=== PATIENT | female | born 1970 | race Two or more races ===

== ENCOUNTER 2019-07-28 08:50 | Inpatient (IN) | payer BC ==
--- NOTE | 2019-07-25 10:45 | Pre-op HX & Phy Repo 2 SIG ---
DATE OF ADMISSION: 07/28/2019 HISTORY OF PRESENT ILLNESS: The patient is a 49-year-old female in overall good health with a malfunctioning Lizarraga continent ileostomy with difficulty intubating and incontinence of stool and gas. The patient has a past history of ulcerative colitis. In June 1989, she underwent total colectomy with creation of an ileoanal J-pouch with temporary ileostomy, which was not closed until September 1990. In April 1991, she required creation of another ileostomy because of failure of her J-pouch. In 1992, she underwent excision of her J-pouch with creation of a conventional Rosario ileostomy because of continuing incontinence after repair of a J-pouch fistula. In 2001, she underwent conversion of her conventional ileostomy to a Lizarraga continent intestinal reservoir, the Lizarraga modification of the Kock pouch continent ileostomy. The patient has done well for many years, but for the past year or more she has had progressive difficulty inserting her drainage catheter to evacuate stool and gas at about 3 to 4 inches deep into the stoma. She also has stool and gas coming out of the stoma in between intubating. She intubates 3 to 4 times per day, but does not need to wake up during the night. She has not had any history of symptoms of pouchitis. She is scheduled to be admitted with pouch endoscopy to be performed and preparation for definitive surgical revision of her malfunctioning Lizarraga continent ileostomy. Her most likely diagnosis is a slipped valve of her Lizarraga pouch. MEDICATIONS: Synthroid, Celexa, Singulair. ALLERGIES: Erythromycin, Imodium, sulfa. OPERATIONS: In addition to the above, she underwent oral surgery in 2006 and removal of a ganglion of the left wrist in 2008. REVIEW OF SYSTEMS: The patient has allergies that cause symptoms of asthma and she has hypothyroidism. She is nulliparous. Her last menstrual period is over one year ago. PHYSICAL EXAMINATION: The patient is 5 feet 6 inches, 152 pounds. [place] and will be examined upon arrival and dictated separately. IMPRESSION: 1. Malfunctioning Lizarraga continent ileostomy with likely desussception of the nipple valve with incontinence and difficulty intubating. 2. History of ulcerative colitis. 3. Allergic reactions causing asthma. 4. STATUS POST MULTIPLE ABDOMINAL OPERATIONS: 4.1. Total colectomy and ileoanal J-pouch with temporary ileostomy June 1989 4.2. Closure of temporary ileostomy September 1990. 4.3. Creation of another diverting ileostomy April 1991. 4.4. Resection of failed J-pouch due to incontinence after a fistula repair with creation of conventional ileostomy 1992. 4.5. Conversion of conventional ileostomy to a Lizarraga continent intestinal reservoir in 2001. PLAN: I have had a full discussion with the patient. She will be admitted and undergo insertion of a dual lumen PICC line. She will undergo pouch endoscopy with insertion of an indwelling pouch catheter to continuous drainage. She will require intravenous hydration during her bowel prep and overnight leading to surgery the following morning. She will receive broad-spectrum antibiotics intravenously starting the night before surgery and will receive preoperative subcutaneous heparin. I have had a full discussion with the patient regarding the nature of her condition, the nature of the surgery, indications, alternatives, options, and risks. I have discussed the options of revision of the existing valve with preservation of her pouch, creation of a new valve and stoma with preservation of her pouch, and the other options would be resection of the pouch with creating a new continent ileostomy or another conventional ileostomy. Since she has already undergone resection of a J-pouch hopefully this existing pouch can be preserved to maintain intestinal length. I have discussed the general risks of surgery including bleeding, infection, injury to adjacent structures or organs, deep vein thrombosis despite prophylaxis, healing issues, development of hernias or bowel obstructions, etc. I have also discussed the specific risks of the revision of Lizarraga pouch including recurrent difficulties with the function or structure of the pouch that could lead to additional surgery including recurrent slipped valve or fistula of pouch or valve. I will have another detailed discussion in person with the patient when she arrives from [place] of state. Sourav Louie M.D. DR: DEBRA JOB#: [id number] CC: VERONICA
[~2019-07-28] VITALS: Ht 167.6 cm; Wt 72.8 kg
[2019-07-28 09:35] VITALS: BP 138/92
--- NOTE | 2019-07-28 10:11 | NUR ---
NURSE NOTES: Patient was admitted at 3E from Home ([facility]). Admitted for BCIR malfunctioning. Patient is alert and oriented x 4, able to verbalize needs and demonstrates understanding. Family (Mother) at bedside. Consents were obtained from patient. Labs were drawn at 1010. Specimen cup provided for UA. Admission assessment was done, no signs of resp distress or labor. Skin intact. BCIR noted at the left lower quadrant. Medications are sent to the pharmacy.
[2019-07-28] MEDS ORDERED: Zolpidem 5mg tab ORAL PRN (10:15)
--- NOTE | 2019-07-28 10:30 | NUR ---
NURSE NOTES: UA sent down, cxr done at bedside.
[2019-07-28 10:49] LABS: BASOPHILS % (AUTO) 0.9 % (0.0-2.0); EOSINOPHILS % (AUTO) 3.5 % (0.0-3.0); HEMATOCRIT 44.9 % (37.0-47.0); HEMOGLOBIN 15.2 G/DL (12.0-16.0); LYMPHOCYTES % (AUTO) 22.6 % (20.0-45.0); MEAN CORPUSCULAR VOLUME 90 FL (80-99); MONOCYTES % (AUTO) 6.3 % (1.0-10.0); NEUTROPHILS % (AUTO) 66.8 % (45.0-75.0); PLATELET COUNT 317 K/UL (150-450); RED BLOOD COUNT 4.99 M/UL (4.20-5.40); RED CELL DISTRIBUTION WIDTH 11.6 % (11.6-14.8); WHITE BLOOD COUNT 8.5 K/UL (4.8-10.8)
[2019-07-28 10:57] LABS: INR 0.9 (0.9-1.1)
--- NOTE | 2019-07-28 11:02 | NUR ---
NURSE NOTES: Dr Guzman notified of preop visit.
[2019-07-28 11:10] LABS: ANION GAP 10 mmol/L (5-15); BLOOD UREA NITROGEN 22 mg/dL (7-18); CALCIUM 9.7 MG/DL (8.5-10.1); CARBON DIOXIDE 26 MMOL/L (21-32); CHLORIDE 105 MMOL/L (98-107); POTASSIUM 4.1 MMOL/L (3.5-5.1); SODIUM 140 MMOL/L (136-145)
[2019-07-28 11:16] LABS: ALANINE AMINOTRANSFERASE 48 U/L (12-78); ALBUMIN/GLOBULIN RATIO 1.1 (1.0-2.7); ALKALINE PHOSPHATASE 79 U/L (46-116); ASPARTATE AMINO TRANSFERASE 20 U/L (15-37); BILIRUBIN,TOTAL 0.4 MG/DL (0.2-1.0)
[2019-07-28 11:28] LABS: APPEARANCE,URINE SLIGHTLY CLOUDY; BILIRUBIN, URINE NEGATIVE (NEGATIVE); GLUCOSE, URINE (UA) NEGATIVE (NEGATIVE); KETONES,URINE 1+ (NEGATIVE); LEUKOCYTE ESTERASE ,URINE 3+ (NEGATIVE); NITRITE,URINE NEGATIVE (NEGATIVE); PH,URINE 5 (4.5-8.0); PROTEIN,URINE 1+ (NEGATIVE); UROBILINOGEN,URINE NORMAL MG/DL (0.0-1.0)
--- NOTE | 2019-07-28 11:28 | NUR ---
NURSE NOTES: EKG done at bedside, results reported to Dr. Louie, patient is stable. no new orders at this time, will continue to monitor.
[2019-07-28 11:35] LABS: COLOR,URINE YELLOW
[2019-07-28] MEDS: Neomycin Sulfate 500mg Tab ORAL SCH ×3 (11:45→20:08)
--- NOTE | 2019-07-28 11:51 | Anethesia Preoperative Eval ---
Anesthesia Pre-op PMH/ROS General Date of Evaluation: Jul 28, 2019 Time of Evaluation: 14:47 Anesthesiologist: Megan ASA Score: ASA 2 Mallampati Score Class I : Soft palate, uvula, fauces, pillars visible Class II: Soft palate, uvula, fauces visible Class III: Soft palate, base of uvula visible Class IV: Only hard plate visible Mallampati Classification: Class II Surgeon: Jacy Diagnosis: Malfuctioning Lizarraga Continent Ileostomy Surgical Procedure: Revision Lizarraga Continent Ileostomy Anesthesia History: none Family History: no anesthesia problems Allergies: Uncoded Allergies: erythromycin (Allergy, Unknown, 07/28/19) imodium (Allergy, Unknown, 07/28/19) sulfa (Allergy, Unknown, 07/28/19) Medications: see eMAR Patient NPO?: Yes Past Medical History Cardiovascular: Reports: HTN Pulmonary: Reports: asthma Gastrointestinal/Genitourinary: Reports: other - Colitis Endocrine: Reports: hypothyroidism Musculoskeletal/Integumentary: Reports: other - Foot Drop PSxH Narrative: 1. Malfunctioning Lizarraga continent ileostomy with likely desussception of the nipple valve with incontinence and difficulty intubating. 2. History of ulcerative colitis. 3. Allergic reactions causing asthma. 4. STATUS POST MULTIPLE ABDOMINAL OPERATIONS: 4.1. Total colectomy and ileoanal J-pouch with temporary ileostomy June 1989 4.2. Closure of temporary ileostomy September 1990. 4.3. Creation of another diverting ileostomy April 1991. 4.4. Resection of failed J-pouch due to incontinence after a fistula repair with creation of conventional ileostomy 1992. 4.5. Conversion of conventional ileostomy to a Lizarraga continent intestinal reservoir in 2001. Anesthesia Pre-op Phys. Exam Physician Exam Vital Signs Date Time Temp Pulse Resp B/P (MAP) Pulse Ox O2 Delivery O2 Flow Rate FiO2 07/28/19 09:35 98.5 85 20 138/92 (107) 97 07/28/19 09:35 Room Air Last Vital Signs Date Time Temp Pulse Resp B/P (MAP) Pulse Ox O2 Delivery O2 Flow Rate FiO2 07/28/19 09:35 Room Air Constitutional: NAD Neurologic: CN 2-12 intact Cardiovascular: RRR Respiratory: CTA Gastrointestinal: S/NT/ND Airway Exam Mallampati Score: Class II MO: full ROM: full Teeth: intact Anesthesia Pre-op A/P Labs Hematology Test 07/28/19 10:00 White Blood Count 8.5 K/UL (4.8-10.8) Red Blood Count 4.99 M/UL (4.20-5.40) Hemoglobin 15.2 G/DL (12.0-16.0) Hematocrit 44.9 % (37.0-47.0) Mean Corpuscular Volume 90 FL (80-99) Mean Corpuscular Hemoglobin 30.5 PG (27.0-31.0) Mean Corpuscular Hemoglobin Concent 33.9 G/DL (32.0-36.0) Red Cell Distribution Width 11.6 % (11.6-14.8) Platelet Count 317 K/UL (150-450) Mean Platelet Volume 7.6 FL (6.5-10.1) Neutrophils (%) (Auto) 66.8 % (45.0-75.0) Lymphocytes (%) (Auto) 22.6 % (20.0-45.0) Monocytes (%) (Auto) 6.3 % (1.0-10.0) Eosinophils (%) (Auto) 3.5 % (0.0-3.0) H Basophils (%) (Auto) 0.9 % (0.0-2.0) Coagulation Test 07/28/19 10:00 Prothrombin Time 10.1 SEC (9.30-11.50) Prothromb Time International Ratio 0.9 (0.9-1.1) Activated Partial Thromboplast Time 25 SEC (23-33) Chemistry Test 07/28/19 10:00 Sodium Level 140 MMOL/L (136-145) Potassium Level 4.1 MMOL/L (3.5-5.1) Chloride Level 105 MMOL/L (98-107) Carbon Dioxide Level 26 MMOL/L (21-32) Anion Gap 10 mmol/L (5-15) Blood Urea Nitrogen 22 mg/dL (7-18) H Creatinine 1.0 MG/DL (0.55-1.30) Estimat Glomerular Filtration Rate 58.9 mL/min (>60) Glucose Level 96 MG/DL (74-106) Calcium Level 9.7 MG/DL (8.5-10.1) Total Bilirubin 0.4 MG/DL (0.2-1.0) Aspartate Amino Transf (AST/SGOT) 20 U/L (15-37) Alanine Aminotransferase (ALT/SGPT) 48 U/L (12-78) Alkaline Phosphatase 79 U/L (46-116) Total Protein 7.7 G/DL (6.4-8.2) Albumin 4.0 G/DL (3.4-5.0) Globulin 3.7 g/dL Albumin/Globulin Ratio 1.1 (1.0-2.7) Risk Assessment & Plan Assessment: ASA 2 Plan: GA Status Change Before Surgery: No Pre-Antibiotics Drug: Josesito Ford MD Jul 28, 2019 11:51
[2019-07-28 12:00] VITALS: BP 154/91
--- NOTE | 2019-07-28 12:06 | Diagnostic Imaging Report ---
Indication: Dyspnea Comparison: None A single view chest radiograph was obtained. Findings: Cardiomediastinal appearance is within normal limits for age. The lungs are clear. Pulmonary vascularity is appropriate. The diaphragmatic contour is smooth and costophrenic angles are sharp. No pleural effusions are identified. The bones are unremarkable. Impression: No acute findings
--- NOTE | 2019-07-28 12:18 | Pre-Procedure Note/Attestation ---
Pre-Procedure Note/Attestation Complete Prior to Procedure Planned Procedure: not applicable Procedure Narrative: Lizarraga continent ileostomy pouch endoscopy Indications for Procedure Pre-Operative Diagnosis: malfunctioning Lizarraga continent ileostomy Attestation I attest that I discussed the nature of the procedure; its benefits; risks and complications; and alternatives (and the risks and benefits of such alternatives ), prior to the procedure, with the patient (or the patient's legal care support representative). I attest that, if there was a reasonable possibility of needing a blood transfusion, the patient (or the patient's legal care support representative) was given the [facility] standardized written summary, pursuant to the Ravindra Bevier Blood Safety Act ([place] Health and Safety Code # 1645, as amended). I attest that I re-evaluated the patient just prior to the surgery and that there has been no change in the patient's H&P, except as documented below: none Sourav Louie MD Jul 28, 2019 12:18
--- NOTE | 2019-07-28 12:50 | NUR ---
NURSE NOTES: Patient taken to GI lab/radiology via gurney. Mother Kalyani is in room with all belongings.
[2019-07-28] MEDS ORDERED: SYNTHROID25 MCG ORAL (13:00)
[2019-07-28] MEDS ORDERED: SINGULAIR10 MG ORAL (13:00)
[2019-07-28] MEDS ORDERED: CELEXA20 MG ORAL (13:00)
[2019-07-28] MEDS ORDERED: Montelukast 10mg tablet ORAL PRN (13:00)
--- NOTE | 2019-07-28 13:17 | Brief Operative Note ---
Immediate Post Operative Note Operative Note Pre-op Diagnosis: malfunctioning Lizarraga continent ileostomy Procedure: Lizarraga pouch endoscopy Post-op Diagnosis: slipped valve of Lizarraga pouch Post-op Diagnosis: same as pre-op Findings: consistent w/pre-op dx studies Surgeon: willa Anesthesia: other - none Specimen: none Complications: none Condition: stable Fluids: none Drains: other - 28 Fr Olivier Implant(s) used?: No Sourav Louie MD Jul 28, 2019 13:17
--- NOTE | 2019-07-28 13:22 | General Progress Note ---
Progress Note Progress Note H&P dictated. Malfunctioning Lizarraga continent ileostomy with incontinence of stool and gas and difficulty intubating Abdomen soft, long midline scar, multiple RLQ transverse scars and stoma of Lizarraga pouch small and low in RLQ. 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 Aldridge to evaluate Pouch endoscopy: partially desusscepted (slipped) nipple valve of Lizarraga pouch Plan: Dual lumen PIC with IV hydration during bowel prop Continuous drainage of Lizarraga pouch IV antibiotics started tonight SQ heparin pre-op in AM Full discussion with patient. Sourav Louie MD Jul 28, 2019 13:22
[2019-07-28] MEDS ORDERED: Heparin1,000 units/500ml Premix(Conc:2 units/ml) INJ PRN (13:30)
[2019-07-28] MEDS ORDERED: Lidocaine 1% Plain 30 ml INJ PRN (13:30)
--- NOTE | 2019-07-28 13:45 | NUR ---
RADIOLOGY DEPT., CHEST X-RAY DONE.-P.DYE
--- NOTE | 2019-07-28 14:37 | NUR ---
NURSE NOTES: Patient came back from procedure. Patient is stable, no signs and symptoms of respiratory distress. PICC line noted on the Left upper arm. Received order from radiology ok to use PICC line. Soy noted in BCIR. Will flush every 3 hours as ordered. Brick Tender at bedside. Will continue to monitor.
--- NOTE | 2019-07-28 14:50 | NUR ---
RADIOLOGY NOTE: LEFT UPPER EXTREMITY PICC PLACED.
--- NOTE | 2019-07-28 14:57 | Cardiology Progress Note ---
Assessment/Plan Status Narrative 1. UC 2. Malfunctioning Rodriguez Pouch 3. Hypothyroidism 4. HTN- New onse 5. RBBB 6. No clinical evidence of CAD based on history. Assessment/Plan Labs reviewed Add Losartan 25 mg QD to control BP Will request old EKG for review. May proceed with surgery in AM. I will follow post OP and monitor BP. Adjust meds as needed. Discussed with Patient, RN and with Dr. Louie. Subjective Cardiovascular: Reports: no symptoms Respiratory: Reports: no symptoms Gastrointestinal/Abdominal: Reports: abdominal pain Genitourinary: Reports: no symptoms Subjective Patient with history of UC admitted for revision of Rodriguez pouch. Pre-op EKG showed RBBB. BP has been in the 150 range. Patient denies h/o CAD, CP, SOB or HTN. Objective Last 24 Hour Vital Signs Date Time Temp Pulse Resp B/P (MAP) Pulse Ox O2 Delivery O2 Flow Rate FiO2 07/28/19 12:00 97.9 69 18 154/91 (112) 100 07/28/19 09:35 Room Air 07/28/19 09:35 98.5 85 20 138/92 (107) 97 General Appearance: WD/WN, no apparent distress, alert EENT: PERRL/EOMI, normal ENT inspection Neck: non-tender, normal alignment, supple, normal inspection, no JVD Cardiovascular: normal rate, regular rhythm, no gallop/murmur Respiratory/Chest: chest wall non-tender, lungs clear, normal breath sounds, no respiratory distress Abdomen: normal bowel sounds, non tender, soft, no organomegaly, no mass Extremities: non-tender, normal inspection, no calf tenderness, no swelling Laboratory Tests Test 07/28/19 10:00 07/28/19 10:15 White Blood Count 8.5 K/UL (4.8-10.8) Red Blood Count 4.99 M/UL (4.20-5.40) Hemoglobin 15.2 G/DL (12.0-16.0) Hematocrit 44.9 % (37.0-47.0) Mean Corpuscular Volume 90 FL (80-99) Mean Corpuscular Hemoglobin 30.5 PG (27.0-31.0) Mean Corpuscular Hemoglobin Concent 33.9 G/DL (32.0-36.0) Red Cell Distribution Width 11.6 % (11.6-14.8) Platelet Count 317 K/UL (150-450) Mean Platelet Volume 7.6 FL (6.5-10.1) Neutrophils (%) (Auto) 66.8 % (45.0-75.0) Lymphocytes (%) (Auto) 22.6 % (20.0-45.0) Monocytes (%) (Auto) 6.3 % (1.0-10.0) Eosinophils (%) (Auto) 3.5 % (0.0-3.0) H Basophils (%) (Auto) 0.9 % (0.0-2.0) Prothrombin Time 10.1 SEC (9.30-11.50) Prothromb Time International Ratio 0.9 (0.9-1.1) Activated Partial Thromboplast Time 25 SEC (23-33) Sodium Level 140 MMOL/L (136-145) Potassium Level 4.1 MMOL/L (3.5-5.1) Chloride Level 105 MMOL/L (98-107) Carbon Dioxide Level 26 MMOL/L (21-32) Anion Gap 10 mmol/L (5-15) Blood Urea Nitrogen 22 mg/dL (7-18) H Creatinine 1.0 MG/DL (0.55-1.30) Estimat Glomerular Filtration Rate 58.9 mL/min (>60) Glucose Level 96 MG/DL (74-106) Calcium Level 9.7 MG/DL (8.5-10.1) Total Bilirubin 0.4 MG/DL (0.2-1.0) Aspartate Amino Transf (AST/SGOT) 20 U/L (15-37) Alanine Aminotransferase (ALT/SGPT) 48 U/L (12-78) Alkaline Phosphatase 79 U/L (46-116) Total Protein 7.7 G/DL (6.4-8.2) Albumin 4.0 G/DL (3.4-5.0) Globulin 3.7 g/dL Albumin/Globulin Ratio 1.1 (1.0-2.7) Urine Color Yellow Urine Appearance Slightly cloudy Urine pH 5 (4.5-8.0) Urine Specific [place] 1.025 (1.005-1.035) Urine Protein 1+ (NEGATIVE) H Urine Glucose (UA) Negative (NEGATIVE) Urine Ketones 1+ (NEGATIVE) H Urine Blood Negative (NEGATIVE) Urine Nitrite Negative (NEGATIVE) Urine Bilirubin Negative (NEGATIVE) Urine Urobilinogen Normal MG/DL (0.0-1.0) Urine Leukocyte Esterase 3+ (NEGATIVE) H Urine RBC 0-2 /HPF (0 - 2) Urine WBC 5-10 /HPF (0 - 2) H Urine Squamous Epithelial Cells Few /LPF (NONE/OCC) Urine Bacteria Few /HPF (NONE) Rhett Aldridge MD Jul 28, 2019 14:57
[2019-07-28] MEDS: Losartan 25mg tab ORAL SCH (14:59)
--- NOTE | 2019-07-28 15:45 | Pre-op HX & Phy Repo 2 SIG ---
DATE OF ADMISSION: 07/28/2019 HISTORY OF PRESENT ILLNESS: [place] Please see previously dictated history. In addition to the previous information already dictated, the patient states that she feels she has a swelling in the right lower quadrant above her Lizarraga pouch stoma and that she has to press inwards on it in order to get her catheter into the pouch to evacuate stool. PHYSICAL EXAMINATION: GENERAL: The patient is 5 feet 6 inches, 152 pounds. VITAL SIGNS: Revealed mild systolic hypertension, 154/91. HEENT: Within normal limits. LUNGS: Clear. HEART: Regular rhythm. BREASTS: Without masses. ABDOMEN: Soft. There is a long midline incision from xiphoid to pubis. The stoma of her Lizarraga continent ileostomy pouch is small and low in the right lower quadrant. 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 She has had multiple conventional ileostomy procedures in this area as well. PELVIC: Negative per primary care recently. RECTAL: Status post proctectomy. EXTREMITIES: Without edema. Pulses 3+ femoral to pedal bilaterally. NEUROLOGIC: Physiologic. IMPRESSION: 1. Malfunctioning Lizarraga continent ileostomy with desussception of the nipple valve with incontinence and difficulty intubating to evacuate stool. 2. History of ulcerative colitis. 3. Intermittent allergic asthma symptoms. 4. Status post multiple abdominal operations. 4.1. Total colectomy and ileoanal J-pouch with temporary ileostomy, June 1989. 4.2. Closure of temporary ileostomy, September 1990. 4.3. Creation of another diverting ileostomy, April 1991. 4.4. Resection of failed ileoanal J-pouch due to incontinence after a fistula repair with creation of conventional Rosario ileostomy in 1992. 4.5. Conversion of malfunctioning conventional ileostomy with marked skin allergies to appliances to a Lizarraga continent intestinal reservoir in 2001 PLAN: The patient has undergone endoscopy of her Lizarraga pouch, confirming a partially slipped nipple valve. The pouch is well formed and is otherwise normal without any inflammation or ulcerations. I had a full discussion with the patient regarding the nature of her condition, the nature of the surgery, indications, alternatives, options, and risks as per my previous dictation and in all probability we will preserve the existing Lizarraga pouch since she has already had resection of a failed J-pouch. Either we will stabilize her existing valve or create a new valve and stoma with possible relocation of the stoma to the left lower quadrant. This has all been discussed with the patient. She will undergo insertion of a dual lumen PICC line, continuous drainage of her Lizarraga continent ileostomy pouch, intravenous hydration during her bowel prep, intravenous antibiotics and preoperative subcutaneous heparin. All questions have been answered. Sourav Louie M.D. DR: RAN JOB#: [id number] CC: VERONICA
--- NOTE | 2019-07-28 15:53 | Diagnostic Imaging Report ---
Indication: termite exterminator venous access Findings: After the indications, procedure, risks, complications, and alternatives of the procedure were explained, written informed consent was obtained. The left upper extremity was prepped with alcohol. All elements of maximal sterile barrier technique were followed including usage of a cap, mask, sterile gown, sterile gloves, hand hygiene and a large sterile sheet. Sonographic evaluation of the upper extremity was performed demonstrating a patent and compressible basilic vein. Access was obtained under real-time ultrasound guidance (with utilization of sterile gel and sterile probe cover) and digital image was saved and archived. An .018 wire was introduced. Needle exchanged for a 5 Lithuanian peel-away sheath. Measurements were obtained. A 5 Lithuanian dual-lumen Power PICC line catheter was cut to 40 cm and introduced over the wire. Peel-away sheath and wire were removed.Catheter was secured to the skin using 2-0 Prolene suture. Both ports aspirate and flush easily. A single fluoroscopic image shows the distal tip in the superior vena cava. Total fluoroscopic time: 8.9 seconds. Impression: Successful placement of an upper extremity PICC line catheter
[2019-07-28 16:00] VITALS: BP 151/81
--- NOTE | 2019-07-28 17:30 | Procedure Note ---
DATE OF PROCEDURE: 07/28/2019 ENDOSCOPY PROCEDURE REPORT ENDOSCOPIST: Sourav Louie M.D. ANESTHESIA: None. SEDATION: None. PRE-ENDOSCOPY DIAGNOSES: 1. Malfunctioning Lizarraga continent ileostomy with difficulty intubating and incontinence of stool. 2. History of ulcerative colitis. 3. Status post multiple abdominal operations including total colectomy with ileoanal J-pouch in 1989 followed by resection of failed J-pouch in 1992 and creation of a Lizarraga continent ileostomy in 2001. POST-ENDOSCOPY DIAGNOSES: 1. Malfunctioning Lizarraga continent ileostomy with difficulty intubating and incontinence of stool. 2. History of ulcerative colitis. 3. Status post multiple abdominal operations including total colectomy with ileoanal J-pouch in 1989 followed by resection of failed J-pouch in 1992 and creation of a Lizarraga continent ileostomy in 2001. ENDOSCOPY PERFORMED: Lizarraga continent ileostomy pouch endoscopy. FINDINGS: A well-formed healthy mature Lizarraga pouch with a partially slipped nipple valve. DESCRIPTION OF PROCEDURE: The patient was positioned supine in the GI lab without any anesthesia or sedation given or required. Using a GIF-P140 endoscope, the stoma was entered and with some manipulation of angulations, the pouch was entered. The pouch was distensible and mucosa was completely normal. Retroflexed views revealed partial desussception of the nipple valve. The distance from the stoma orifice to the tip of the valve was 11 cm, which in this patient should be approximately 7 cm. Withdrawal views confirmed the above findings. I was then able to insert a 28-Portuguese Olivier catheter into her pouch and decompressed it, connected to a gravity drainage bag, secured it with tape with a dressing over the stoma. She will be prepared for surgery in the morning. She tolerated the endoscopy well. Sourav Louie M.D. DR: Flako JOB#: [id number] CC: VERONICA
[2019-07-28] MEDS: D5 1/2NS w/KCl 20mEq 1,000 ML IV SCH (18:25)
--- NOTE | 2019-07-28 19:07 | NUR ---
NURSE NOTES: Patient true ileo output is 785 mLs. Greenish liquid output. Flushed 20 mLs q3 hours as ordered. Patient Urine output is 450mLs. Oral intake is 480mLs. Patient connected to IVF as ordered.
--- NOTE | 2019-07-28 19:29 | NUR ---
HAND-OFF: Report given to Lisbeth CASTRO. Patient is stable.
--- NOTE | 2019-07-28 19:30 | NUR ---
NURSE NOTES: Received report & pt from GLORIA Mcdonald. Pt lying in bed, a&ox4, in room air. No s/s of acute distress & no c/o pain at this time. Ileo cath intact & draining to gravity. Pt to be NPO @ midnight for tomorrow's surgery & pt aware & verbalized understanding. Skin intact. Dressing C/D/I. PICC line intact with IVF running as ordered. Plan of care discussed.
[2019-07-28 20:00] VITALS: BP 160/95
--- NOTE | 2019-07-28 23:46 | NUR ---
NURSE NOTES: Dr. Aldridge called to get an update about the pt. Updated with 1999 BP 160/95 HR 65. New order received for Norvasc 2.5mg PO Q12HR for SPB>150 to start now. Informed MD that EKG from outside hasn't been received via fax yet.
[2019-07-29] VITALS (14 sets, daily range): BP systolic 108–134; BP diastolic 59–83
[2019-07-29] MEDS: Ampicillin/Sulbactam Sod 3 GM in NS 110 ML IV SCH ×5 (00:11→23:57)
[2019-07-29] MEDS: D5 1/2NS w/KCl 20mEq 1,000 ML IV SCH (04:06)
[2019-07-29] MEDS ORDERED: Heparin 5000 units/ml inj SUBQ ONE (05:30)
[2019-07-29 06:19] LABS: BASOPHILS % (AUTO) 1.2 % (0.0-2.0); EOSINOPHILS % (AUTO) 4.1 % (0.0-3.0); HEMATOCRIT 41.6 % (37.0-47.0); HEMOGLOBIN 14.3 G/DL (12.0-16.0); LYMPHOCYTES % (AUTO) 26.4 % (20.0-45.0); MEAN CORPUSCULAR VOLUME 89 FL (80-99); MONOCYTES % (AUTO) 9.4 % (1.0-10.0); NEUTROPHILS % (AUTO) 58.9 % (45.0-75.0); PLATELET COUNT 262 K/UL (150-450); RED BLOOD COUNT 4.68 M/UL (4.20-5.40); RED CELL DISTRIBUTION WIDTH 11.1 % (11.6-14.8); WHITE BLOOD COUNT 6.6 K/UL (4.8-10.8)
[2019-07-29 06:42] LABS: ALANINE AMINOTRANSFERASE 38 U/L (12-78); ALBUMIN 3.5 G/DL (3.4-5.0); ALBUMIN/GLOBULIN RATIO 1.1 (1.0-2.7); ALKALINE PHOSPHATASE 74 U/L (46-116); ANION GAP 10 mmol/L (5-15); ASPARTATE AMINO TRANSFERASE 19 U/L (15-37); BILIRUBIN,TOTAL 0.7 MG/DL (0.2-1.0); BLOOD UREA NITROGEN 12 mg/dL (7-18); CALCIUM 8.9 MG/DL (8.5-10.1); CARBON DIOXIDE 25 MMOL/L (21-32); CHLORIDE 105 MMOL/L (98-107); CREATININE 0.8 MG/DL (0.55-1.30); FERRITIN 35 NG/ML (8-388); POTASSIUM 3.8 MMOL/L (3.5-5.1); SODIUM 139 MMOL/L (136-145)
[2019-07-29] MEDS ORDERED: LR 1000ml 1,000 ML IVLG SCH (06:48)
[2019-07-29] MEDS ORDERED: Rocuronium Bromide 50mg/5ml Inj IV ONE (06:51)
[2019-07-29] MEDS ORDERED: Dexamethasone 4mg/ml vial ONE (06:53)
[2019-07-29] MEDS ORDERED: Sodium Chloride 10ml vial INJ ONE (06:53)
[2019-07-29] MEDS ORDERED: Lidocaine 1% MPF 10mg/ml 5ml ONE (06:53)
[2019-07-29] MEDS ORDERED: fentaNYL 100 mcg/2 mL IV ONE ×3 (06:55→09:56)
--- NOTE | 2019-07-29 06:55 | Immediate Post-Op Evaluation ---
Immediate Post-Op Evalulation Immediate Post-Op Evalulation Procedure: Revision Lizarraga Continent Ileostomy Date of Evaluation: Jul 29, 2019 Time of Evaluation: 12:07 IV Fluids: 2400 LR Blood Products: 0 Estimated Blood Loss: 100 Urinary Output: 200 Blood Pressure Systolic: 124 Blood Pressure Diastolic: 61 Pulse Rate: 60 Respiratory Rate: 16 O2 Sat by Pulse Oximetry: 100 Temperature (Fahrenheit): 98.5 Pain Score (1-10): 3 Nausea: No Vomiting: No Complications 0 Patient Status: awake, reacts, patent, extubated, none Hydration Status: adequate Drug Zosyn, 500 mg Flagyl IV Given Within 1 Hr of Incision: Yes Time Given: 07:29 Josesito Guzman MD Jul 29, 2019 06:55
[2019-07-29] MEDS ORDERED: LORazepam Inj 2mg/ml 1ml IV PRN (07:00)
[2019-07-29] MEDS ORDERED: Ketorolac 30mg Inj IV PRN ×2 (07:00)
[2019-07-29] MEDS ORDERED: oxyCODONE HCL/Acetaminophen 5/325mg ORAL PRN (07:00)
[2019-07-29] MEDS ORDERED: Meperidine 25mg/0.5ml Inj (FOR RIGORS ONLY) IV PRN (07:00)
[2019-07-29] MEDS ORDERED: Acetaminophen (Non formulary) 100 ML IV ONE (07:00)
[2019-07-29] MEDS ORDERED: HYDROcodone/Acetamin 7.5/325 tab ORAL PRN (07:00)
[2019-07-29] MEDS ORDERED: DiphenhydrAMINE 50mg/ml Inj IVP PRN ×2 (07:00→12:00)
[2019-07-29] MEDS ORDERED: Midazolam 2mg/2ml Inj IVP PRN (07:00)
[2019-07-29] MEDS ORDERED: Atropine Sulfate 0.4mg/ml inj IVP PRN (07:00)
[2019-07-29] MEDS ORDERED: Labetalol 5mg/ml 20ml vial IV PRN (07:00)
[2019-07-29] MEDS ORDERED: HYDROcodone/Acetamin 5/325 tab ORAL PRN (07:00)
[2019-07-29] MEDS ORDERED: fentaNYL 100 mcg/2 mL IV PRN (07:00)
[2019-07-29] MEDS ORDERED: Hydromorphone 0.5mg/0.5ml inj IVP PRN (07:00)
[2019-07-29] MEDS ORDERED: Propofol 1,000mg/ 100ml btl IV ONE (07:00)
--- NOTE | 2019-07-29 07:04 | NUR ---
NURSE NOTES: Picked up by transporter for surgery. ID band verified. Chart and meds given to transporter. Endorsed to have overhead trapeze set up
[2019-07-29] MEDS ORDERED: NeoSporin Gu Irrig 1ml Amp IRRIG ONE (07:10)
[2019-07-29] MEDS ORDERED: Bacitracin 50000 Units Vial ONE (07:10)
--- NOTE | 2019-07-29 07:10 | NUR ---
HAND-OFF: Report given to GLORIA Mcdonald. Pt went down for surgery.
[2019-07-29 07:13] LABS: % IRON SATURATION 31 % (15-50); IRON 119 ug/dL (50-175); TOTAL IRON BINDING CAPACITY 390 ug/dL (250-450)
--- NOTE | 2019-07-29 07:22 | Pre-Procedure Note/Attestation ---
Pre-Procedure Note/Attestation Complete Prior to Procedure Planned Procedure: not applicable Procedure Narrative: revision of Lizarraga continent ileostomy, possible gastrostomy Indications for Procedure Pre-Operative Diagnosis: malfunctioning Lizarraga continent ileostomy Attestation I attest that I discussed the nature of the procedure; its benefits; risks and complications; and alternatives (and the risks and benefits of such alternatives ), prior to the procedure, with the patient (or the patient's legal artist's representative). I attest that, if there was a reasonable possibility of needing a blood transfusion, the patient (or the patient's legal artist's representative) was given the [facility] standardized written summary, pursuant to the [facility] [place] Blood Safety Act ([place] Health and Safety Code # 1645, as amended). I attest that I re-evaluated the patient just prior to the surgery and that there has been no change in the patient's H&P, except as documented below:none Sourav Louie MD Jul 29, 2019 07:22
[2019-07-29] MEDS ORDERED: Neostigmine 1mg/ml 10ml Inj ONE (07:30)
[2019-07-29] MEDS ORDERED: NS Irrig 1000ml ONE ×2 (07:30→15:13)
[2019-07-29] MEDS ORDERED: LR 1000ml ONE (07:30)
[2019-07-29] MEDS ORDERED: Sterile Water Irrig 1000ml IRRIG ONE (07:30)
[2019-07-29] MEDS ORDERED: Lidocaine 1% Plain 30 ml INJ ONE ×2 (07:32→09:26)
--- NOTE | 2019-07-29 08:04 | NUR ---
Report received from GLORIA Bob. Patient is off unit and at surgery. Addendum: 07/29/19 at 0805 by Elba Nuno RN NURSE NOTES: Report received from GLORIA Bob. Patient is off unit and at surgery.
[2019-07-29] MEDS ORDERED: Glycopyrrolate 0.2mg/ml 1ml Vial ONE ×2 (08:21→11:21)
[2019-07-29] MEDS: Losartan 25mg tab ORAL SCH (09:00)
[2019-07-29] MEDS: Citalopram Hydrobromide 10mg Tab ORAL SCH (09:00)
--- NOTE | 2019-07-29 09:30 | NUR ---
*-* NO INSURANCE INFORMATION IN THE BAR UNABLE TO SEND CLINICALS OR REVIEWS *-*
--- NOTE | 2019-07-29 09:46 | NUR ---
*-* INSURANCE *-* ALL CLINICAL AND REVIEWS HAVE BEEN FAXED TO: [facility] REF# [id number] JOEL: MELISSA P: [phone] F: [phone]
[2019-07-29] MEDS ORDERED: PCA HYDROmorphone 1mg/ml 30 ML IV PRN (11:57)
[2019-07-29] MEDS ORDERED: HYDROmorphone 1mg/ml Carpuject SUBQ PRN (11:57)
[2019-07-29] MEDS ORDERED: LORazepam 1mg tab SL PRN ×2 (12:00)
[2019-07-29] MEDS ORDERED: Naloxone 0.4mg/ml Inj IVP PRN (12:00)
[2019-07-29] MEDS ORDERED: Rate Change PCA 1 Each MISC PRN (12:00)
[2019-07-29] MEDS ORDERED: PCA Education Pamphlet MISC ONE (12:00)
[2019-07-29] MEDS ORDERED: Ampicillin/Sulbactam Sod 3 GM in NS 110 ML IV SCH (12:00)
--- NOTE | 2019-07-29 12:01 | Brief Operative Note ---
Immediate Post Operative Note Operative Note Pre-op Diagnosis: malfunctioning Lizarraga continent ileostomy Procedure: Revision of Lizarraga continent ileostomy and relocation of stoma; gastrostomy Post-op Diagnosis: slipped valve of Lizarraga pouch Post-op Diagnosis: same as pre-op Findings: consistent w/pre-op dx studies Surgeon: willa Additional Surgeons: tamica Anesthesiologist: eduard Anesthesia: general Specimen: yes - stoma, bowel segments Complications: none Condition: stable Fluids: see anesthesia record Estimated Blood Loss: volume - 100cc Drains: other - 28 Olivier to Lizarraga pouch; 18Fr gastrostomy Implant(s) used?: No Sourav Louie MD Jul 29, 2019 12:01
[2019-07-29] MEDS ORDERED: Acetaminophen 650mg/20.3ml GT PRN (12:07)
--- NOTE | 2019-07-29 13:20 | NUR ---
NURSE NOTES: Patient came back from surgery at 1320. Report received from GLORIA Talbert. Patient is asleep and calm. Mother Kalyani was at bedside and patient teaching given to her regarding the CUSHION GUM APPLICATOR. No signs of respiratory distress or labored breathing. Vitals are WNL. Surgery site noted clean, dry and intact. Olivier catheter noted. Will continue to monitor patient.
[2019-07-29] MEDS: D5 1/4NS w/KCl 20mEq 1,000 ML IV SCH (14:30)
[2019-07-29] MEDS ORDERED: Tubing IV Secondary IV ONE (15:13)
[2019-07-29] MEDS ORDERED: NS 275ml ONE (15:13)
--- NOTE | 2019-07-29 15:22 | NUR ---
CASE MANAGEMENT: INITIAL REVIEW 49YR OLD FEMALE HERE FOR ELECTIVE SURGERY CC: MALFUNCTION SHIELDS CONTINENT ILEOSTOMY WITH DIFFICULTY INTUBATING AND INCONTINENT OF STOOL AND GAS SI: MALFUNCTION SHIELDS CONTINENT ILEOSTOMY WITH DIFFICULTY INTUBATING 98.5 85 20 138/92 97% ON RA BUN 22 IS: SHIELDS POUCH ENDOSCOPY TODAY \: 3E MED SURG UNIT PLAN: REVISION OF SHIELDS CONTINENT ILEOSTOMY AND RELOCATION OF STOMA; GASTROSTOMY IN AM CASE MANAGEMENT: REVIEW 07/29/19 SI: S/P SHIELDS POUCH ENDOSCOPY MALFUNCTION SHIELDS CONTINENT ILEOSTOMY WITH DIFFICULTY INTUBATING 98.1 59 14 117/70 97% ON RA IS: IN SURGERY NOW IV D5@100ML/HR IV AMPICILLIN Q6HR IV FLAGYL Q6HR SYNTHROID QAM \: 3E MED SURG UNIT PLAN: REVISION OF SHIELDS CONTINENT ILEOSTOMY AND RELOCATION OF STOMA; GASTROSTOMY TODAY
--- NOTE | 2019-07-29 15:31 | Cardiology Progress Note ---
Assessment/Plan Status Narrative 1. UC 2. Malfunctioning Lizarraga Ileostomy 3. Hypothyroidism 4. HTN- New onse 5. RBBB 6. No clinical evidence of CAD based on history. 7. s/p Revision of Lizarraga continent ileostomy and relocation of stoma; gastrostomy Assessment/Plan Losartan 25 mg QD to control BP Norvasc 2.5 mg PRN. IS to avoid atelectasis. Will monitor BP. Adjust meds as needed. Discussed with Patient, RN and with Family. Subjective Cardiovascular: Denies: chest pain Respiratory: Reports: no symptoms; Denies: cough, orthopnea Gastrointestinal/Abdominal: Reports: abdominal pain Genitourinary: Reports: no symptoms Subjective Patient with history of UC admitted for revision of Lizarraga ileostomy Pre-op EKG showed RBBB. BP has been in the 150 range. Patient denies h/o CAD, CP, SOB or HTN. 07/29/19- s/p Revision of Lizarraga continent ileostomy and relocation of stoma; gastrostomy. Doing OK post op- on RELAY REPAIRER Required Norvasc last nite . BP stable today. Objective Last 24 Hour Vital Signs Date Time Temp Pulse Resp B/P (MAP) Pulse Ox O2 Delivery O2 Flow Rate FiO2 07/29/19 14:30 98.9 20 114/63 (80) 99 07/29/19 13:25 14 07/29/19 13:20 98.5 20 109/61 (77) 100 07/29/19 13:20 Nasal Cannula 3.0 07/29/19 13:10 14 07/29/19 13:05 97.6 72 24 114/59 100 Nasal Cannula 3 07/29/19 12:55 14 07/29/19 12:50 64 20 109/64 100 Nasal Cannula 3 07/29/19 12:50 97.6 07/29/19 12:50 97.6 07/29/19 12:35 68 20 111/59 100 Nasal Cannula 3 07/29/19 12:20 61 14 108/59 100 Simple Mask 6 07/29/19 12:10 61 14 120/67 100 Simple Mask 6 07/29/19 12:00 61 14 124/63 100 Simple Mask 6 07/29/19 11:55 63 12 131/67 100 Simple Mask 6 07/29/19 11:54 60 16 100 07/29/19 11:50 98.5 61 12 124/61 100 Simple Mask 6 07/29/19 04:00 98.1 59 14 117/70 (86) 97 07/29/19 00:00 97.9 68 16 134/83 (100) 99 07/28/19 23:45 68 134/83 07/28/19 21:00 Room Air 07/28/19 20:00 97.9 65 17 160/95 (116) 100 07/28/19 16:00 98.3 65 20 151/81 (104) 100 Cardiovascular: normal rate, regular rhythm, no gallop/murmur Respiratory/Chest: lungs clear Abdomen: absent bowel sounds, tender Extremities: non-tender, no calf tenderness, no swelling Intake and Output 07/28/19 07/29/19 19:00 07:00 Intake Total 480 ml 1540 ml Output Total 1235 ml 1495 ml Balance -755 ml 45 ml Intake Oral 480 ml 240 ml IV Total 1300 ml Output Urine Total 450 ml 850 ml Other 785 ml 645 ml # Voids 2 3 Laboratory Tests Test 07/29/19 05:15 White Blood Count 6.6 K/UL (4.8-10.8) Red Blood Count 4.68 M/UL (4.20-5.40) Hemoglobin 14.3 G/DL (12.0-16.0) Hematocrit 41.6 % (37.0-47.0) Mean Corpuscular Volume 89 FL (80-99) Mean Corpuscular Hemoglobin 30.6 PG (27.0-31.0) Mean Corpuscular Hemoglobin Concent 34.5 G/DL (32.0-36.0) Red Cell Distribution Width 11.1 % (11.6-14.8) L Platelet Count 262 K/UL (150-450) Mean Platelet Volume 7.5 FL (6.5-10.1) Neutrophils (%) (Auto) 58.9 % (45.0-75.0) Lymphocytes (%) (Auto) 26.4 % (20.0-45.0) Monocytes (%) (Auto) 9.4 % (1.0-10.0) Eosinophils (%) (Auto) 4.1 % (0.0-3.0) H Basophils (%) (Auto) 1.2 % (0.0-2.0) Sodium Level 139 MMOL/L (136-145) Potassium Level 3.8 MMOL/L (3.5-5.1) Chloride Level 105 MMOL/L (98-107) Carbon Dioxide Level 25 MMOL/L (21-32) Anion Gap 10 mmol/L (5-15) Blood Urea Nitrogen 12 mg/dL (7-18) Creatinine 0.8 MG/DL (0.55-1.30) Estimat Glomerular Filtration Rate > 60 mL/min (>60) Glucose Level 100 MG/DL (74-106) Calcium Level 8.9 MG/DL (8.5-10.1) Iron Level 119 ug/dL (50-175) Total Iron Binding Capacity 390 ug/dL (250-450) Percent Iron Saturation 31 % (15-50) Unsaturated Iron Binding 271 ug/dL (112-346) Ferritin 35 NG/ML (8-388) Total Bilirubin 0.7 MG/DL (0.2-1.0) Aspartate Amino Transf (AST/SGOT) 19 U/L (15-37) Alanine Aminotransferase (ALT/SGPT) 38 U/L (12-78) Alkaline Phosphatase 74 U/L (46-116) Total Protein 6.8 G/DL (6.4-8.2) Albumin 3.5 G/DL (3.4-5.0) Globulin 3.3 g/dL Albumin/Globulin Ratio 1.1 (1.0-2.7) Vitamin B12 Level 297 PG/ML (193-986) Folate 45.8 NG/ML (8.6-58.9) Microbiology Date/Time Source Procedure Growth Status 07/28/19 10:15 Urine,Clean Catch Urine Culture - Preliminary NO GROWTH Resulted Rhett Aldridge MD Jul 29, 2019 15:31
--- NOTE | 2019-07-29 18:41 | NUR ---
NURSE NOTES: Patient received total of 40 mLs of NS flush in the Gtube and 40 mLs BCIR cath. GT true output is 10 mL. Output is clear, with few gastric contents. Ileo true output is 160 mL. Output is bright red in color. Urine 250 mLs total output, dark in color. Patient is receiving IV fluids, TECHNICAL SUPPORT SPECIALIST, and IV antibiotics. Dressing is clean, dry and intact. Patient is alert, oriented and comfortable. Will continue to monitor.
[2019-07-29] MEDS: PCA shift volume MISC SCH (19:28)
--- NOTE | 2019-07-29 19:42 | NUR ---
HAND-OFF: Report given to Lisbeth CASTRO. Patient is stable.
--- NOTE | 2019-07-29 19:43 | NUR ---
NURSE NOTES: Received report & pt from Tamara/GLORIA Arreola. Pt lying in bed, a&ox4, in room air, family member at bedside. No s/s of acute distress & c/o 9/10 pain. MAIL SERVICE COORDINATOR setting checked. Ileo, GT, & toro cath intact & draining to gravity. Surgical drsg C/D/I. PICC line intact with IVF running as ordered. Bed in lowest position, call light & MAIL SERVICE COORDINATOR pump within reach. Plan of care discussed.
--- NOTE | 2019-07-29 20:15 | Operative Note - Dictated ---
DATE OF OPERATION: 07/29/2019 SURGEON: Sourav Louie M.D. ROTOR BLADE INSTALLER: Hayder Berger M.D. ANESTHESIOLOGIST: Josesito Guzman M.D. TYPE OF ANESTHESIA: General endotracheal. PREOPERATIVE DIAGNOSES: 1. Malfunctioning Lizarraga continent ileostomy with difficulty with intubation and incontinence with a slipped valve. 2. History of ulcerative colitis. 3. Status post multiple abdominal operations. 3.1. Total colectomy with ileoanal J-pouch and temporary ileostomy in June 1989. 3.2. Closure of temporary ileostomy in September 1990. 3.3. Creation of another diverting ileostomy in April 1991. 3.4. Resection of failed ileoanal J-pouch due to incontinence after a fistular repair with abdominoperineal proctectomy and creation of a conventional ileostomy in 1992. 3.5. Creation of Lizarraga continent intestinal reservoir continent ileostomy in 2001. POSTOPERATIVE DIAGNOSES: 1. Malfunctioning Lizarraga continent ileostomy with difficulty with intubation and incontinence with a slipped valve. 2. History of ulcerative colitis. 3. Status post multiple abdominal operations. 3.1. Total colectomy with ileoanal J-pouch and temporary ileostomy in June 1989. 3.2. Closure of temporary ileostomy in September 1990. 3.3. Creation of another diverting ileostomy in April 1991. 3.4. Resection of failed ileoanal J-pouch due to incontinence after a fistular repair with abdominoperineal proctectomy and creation of a conventional ileostomy in 1992. 3.5. Creation of Lizarraga continent intestinal reservoir continent ileostomy in 2001. OPERATION PERFORMED: Laparotomy with complex reconstruction of Lizarraga continent ileostomy with creation of new valve and stoma with relocation of stoma to the left lower quadrant and catheter gastrostomy. DESCRIPTION OF PROCEDURE: The patient was taken to the operating room and under general endotracheal anesthesia with sequential compression device stockings and Olivier catheter in place, she was prepped and draped in usual fashion. Previous midline incision was reopened from umbilicus to pubis. There were no adhesions to the anterior abdominal wall, but the pouch was densely adherent partially to the bladder, but also to the uterus and the adnexa. There were bilateral simple cysts that were decompressed. Gradually, the pouch was elevated out of the pelvis. There were multiple pre-sacral old large bharat that were removed without bleeding. A 28-Ivorian Olivier catheter was placed through the stoma low in the right lower quadrant and into the pouch and the afferent bowel which was dissected free was clearly identified. There were diffuse adhesions between loops of bowel in the upper abdomen as well. The pouch was distended with 250 mL of saline, but there was incontinence around the catheter and the pouch was decompressed. A pouch enterotomy was created between stay sutures and it was clear that the existing nipple valve could not be reformed. The stoma was circumscribed with an elliptical transversely oriented incision and brought through with its mesentery into the abdominal wall. It could not be intussuscepted to create a new valve at the same location. Accordingly, it was divided using the SnapMyAderOneTagat electrosurgical device to divide the mesentery and then the linear stapler 60 blue cartridge to staple across the old access segment. The staple line was imbricated with 3-0 silk. In view of all her diffuse adhesions and a limited anterior surface area of the pouch, I felt it best to create a new valve by utilizing the afferent small bowel. The junction of the bowel and pouch was marked with 2-0 chromic and 12 cm proximal marked for the valve segment. There was not room for a second collar anastomosis. The mesentery was stripped and the serosa scarified. The abdominal wall thickness was approximately 4 cm. The appropriate length access segment was measured and marked. The bowel was divided proximally with the linear stapler 60 and distally left open to become the new stoma. The valve was created by gradual intussusception creating a 5 to 6 cm long nipple valve. Four rows of bharat were placed using the linear stapler 60 green cartridge with the pin removed. The 28-Ivorian Olivier went nicely into the pouch. The afferent bowel was reattached to the pouch with a end-to-side anastomosis utilizing the 25 CEEA. The staple line imbricated with 3-0 silk and 2 intact donuts retrieved. The afferent bowel was manually occluded and with a catheter in the new stoma the pouch distended with 300 mL of saline. There was no extravasation and upon removing the catheter there was no incontinence. The catheter was reintroduced and the pouch decompressed. It was clear that the stoma would need to be relocated to the left lower quadrant and with a transversely placed incision somewhat higher than the prior site on the right side, and with a cruciate incision in the fascia, the new stoma and access segment was brought through the abdominal wall with the pouch lying nicely against the abdominal wall. The pelvis was carefully inspected and irrigated. Antibiotic soaked laps had been used to protect the incision throughout the procedure. I felt in view of all the dissection, a catheter gastrostomy was required. An 18-Ivorian Olivier catheter was brought through a stab incision in the left upper quadrant and placed into the body of the stomach, greater curve, fundus, anterior wall, between two concentric 2-0 chromic pursestring sutures with the balloon inflated and the stomach sutured to the abdominal wall with multiple interrupted 3-0 silk sutures. The catheter was sutured to the skin with 2-0 silk and it was flushed and connected to a gravity drainage bag. Now, the pelvis was inspected again and hemostasis was seen to be secure. The redundant access segment was excised, controlling the mesentery with the Thunderbeat and the new stoma primarily matured with continuous 2-0 chromic full-thickness locking sutures starting at the 3 and 9 o'clock positions. The 28-Ivorian Olivier catheter went readily into the pouch down towards the apex in the deep pelvis. It was sutured to the skin with two sutures of 2-0 silk and flushed and connected to a gravity drainage bag. The abdomen was inspected and hemostasis was secure. The prior stoma site low in the right lower quadrant was closed with continuous #0 Prolene and the skin closed with bharat and several interrupted vertical mattress 2-0 nylon skin sutures. The midline fascia was closed with continuous #1 looped PDS and the skin closed with bharat. Dry sterile dressings were applied. Final sponge and needle counts were correct. The patient tolerated the procedure well and left the operating room in good condition. Sourav Louie M.D. DR: SHANTHI JOB#: [id number] CC: VERONICA
[2019-07-30] VITALS: BP 124/74
[2019-07-30] MEDS: D5 1/4NS w/KCl 20mEq 1,000 ML IV SCH ×3 (00:02→20:12)
[2019-07-30 04:00] VITALS: BP 133/71
[2019-07-30] MEDS: Ampicillin/Sulbactam Sod 3 GM in NS 110 ML IV SCH ×4 (05:02→23:41)
[2019-07-30 05:44] LABS: BASOPHILS % (AUTO) 0.6 % (0.0-2.0); EOSINOPHILS % (AUTO) 0.2 % (0.0-3.0); HEMATOCRIT 33.2 % (37.0-47.0); HEMOGLOBIN 11.3 G/DL (12.0-16.0); LYMPHOCYTES % (AUTO) 14.2 % (20.0-45.0); MEAN CORPUSCULAR VOLUME 90 FL (80-99); MONOCYTES % (AUTO) 10.9 % (1.0-10.0); PLATELET COUNT 208 K/UL (150-450); RED BLOOD COUNT 3.69 M/UL (4.20-5.40); RED CELL DISTRIBUTION WIDTH 11.4 % (11.6-14.8); WHITE BLOOD COUNT 10.4 K/UL (4.8-10.8)
[2019-07-30 05:56] LABS: ANION GAP 9 mmol/L (5-15); BLOOD UREA NITROGEN 9 mg/dL (7-18); CARBON DIOXIDE 24 MMOL/L (21-32); CHLORIDE 106 MMOL/L (98-107); CREATININE 0.8 MG/DL (0.55-1.30); POTASSIUM 3.9 MMOL/L (3.5-5.1); SODIUM 139 MMOL/L (136-145)
--- NOTE | 2019-07-30 06:10 | NUR ---
NURSE NOTES: Offered pt break thru pain med & pt states, "I don't need it right now. I just pressed the MOBILE HOME TECHNICIAN pump." Asked what her pain level is & pt states, "It's up there. I'm groggy but I haven't slept yet". Told pt to call RN if pain med needed & pt verbalized understanding.
[2019-07-30] MEDS: PCA shift volume MISC SCH ×2 (07:25→19:00)
--- NOTE | 2019-07-30 07:30 | NUR ---
NURSE NOTES: Received report from Lisbeth CASTRO. Patient is awake and oriented, no acute distress noted, reporting pain rated 9/10 in surgical site, patient states she does not want breakthrough pain medication at this time, patient states she is using her FURNACE CARETAKER. Surgical site dressing clean, dry, intact, SCD's on. MARISOL PICC intact, patent, running IVF per order. FURNACE CARETAKER settings checked and verified against order. Ileo, g-tube and toro to gravity drainage. Patient updated on plan of care for the day. Side rails uxp2, bed low and locked, call light within reach.
--- NOTE | 2019-07-30 07:34 | 48 Hour Post Anesthesia Eval ---
Post Anesthesia Evaluation Procedure: Revision Lizarraga Continent Ileostomy Date of Evaluation: Jul 30, 2019 Time of Evaluation: 07:33 Blood Pressure Systolic: 133 0: 71 Pulse Rate: 76 Respiratory Rate: 16 Temperature (Fahrenheit): 99.2 O2 Sat by Pulse Oximetry: 99 Airway: patent Nausea: No Vomiting: No Pain Intensity: 2 Hydration Status: adequate Cardiopulmonary Status: Stable Mental Status/LOC: patient returned to baseline Follow-up Care/Observations: 0 Post-Anesthesia Complications: 0 Follow-up care needed: N/A Josesito Guzman MD Jul 30, 2019 07:34
--- NOTE | 2019-07-30 07:35 | NUR ---
HAND-OFF: Report given to Alee CASTRO. Rounds done. Addendum: 07/30/19 at 0741 by Lisbeth Miranda RN CORRECTION: Keysha CASTRO
[2019-07-30 08:00] VITALS: BP 127/69
--- NOTE | 2019-07-30 08:37 | General Progress Note ---
Progress Note Progress Note AVSS c/o pain despite dilaudid WEDGER MACHINE with basal infusion + demand dosing, feels groggy. c/o incisional pains chest - decreased expansion Cor reg rhythm Abdomen mild distention, incisions clean, stoma LLQ pink Overnight 12 hours: urine 700 Gastrostomy 95 BCIR ileo 95 serosange WBC 10,400 Hgb down 11.3 BMP okay Iron 119 but Ferritin 35 (8-388) B12 297 folic acid ok Imp: Stable with ileus and atelectasis Plan: Add Toradol prn severe pain and hopefully can d/c basal infusion of certified scrub tech TPN - due to extensive intestinal surgery with anticipated prolonged need to be NPO continue Olivier - pelvic dissection Venofer f/u labs Ambulate with assistance BID as tolerated; continue SCDs Sourav Louie MD Jul 30, 2019 08:37
--- NOTE | 2019-07-30 09:27 | NUR ---
NURSE NOTES: Called the office of Dr. Aldridge to clarify order for Norvasc. Message left, per medical receptionist MD will be informed when he is in office, awaiting callback.
[2019-07-30] MEDS ORDERED: Vitamin B12 1000mcg/ml Inj IM SCH (10:00)
--- NOTE | 2019-07-30 10:10 | NUR ---
RD ASSESSMENT & RECOMMENDATIONS SEE CARE ACTIVITY FOR COMPLETE ASSESSMENT DAILY ESTIMATED NEEDS: Needs based on Surgery, GI 62.7kg adj 25-30 kcals/kg [id number] total kcals 1-2 g protein/kg 63-125 g total protein 25-30 mL/kg 1969-9253 total fluid mLs NUTRITION DIAGNOSIS: Altered GI fxn r/t h/o colitis and ileostomy as evidenced by pt adm w/ BCIR malfunction now s/p laparotomy with reconstruction BCIR, creation of new valve and stoma relocation to [facility], NPO, TPN ordered. CURRENT DIET:NPO PO DIET RECOMMENDATIONS: per MD PARENTERAL NUTRITION RECOMMENDATIONS: D/AA Rate: 65 IL Rate: 9 Total Rate: 74 Volume: 1776 % Dextrose: 19% % AA: 5.4% Energy (kcals/kg): 1777 Protein (g/kg protein): 84 Nonprotein KCALS: 1440 GIR (mg CHO/kg/min): 3.3 % Fat KCALS: 24 NCP: N Ratio: 107:1 TPN Comment: Rec D19% + AA 5.4% @65ml/hr w/ IL 20% @9ml/hr- all 3:1. Start at rate per MD. TPN at goal meets 100% est needs, provides 28kcal/adj kg and 1.3g/adj kg. - Monitor BG, Lytes, LFT's - GIR <5 - IL <30% ADDITIONAL RECOMMENDATIONS: 1) Weekly weights, standing as able 2) Monitor BG, LFT's, and Lytes on TPN 3) Rec to lower/ DC added D5% w/ TPN
[2019-07-30] MEDS: Citalopram Hydrobromide 10mg Tab ORAL SCH (10:20)
[2019-07-30] MEDS: Losartan 25mg tab ORAL SCH (10:21)
[2019-07-30] MEDS: Ketorolac 30mg Inj IV PRN (10:22)
--- NOTE | 2019-07-30 11:00 | NUR ---
NURSE NOTES: Received callback from Dr. Aldridge. Clarified order for Wesley, per MD Olson is to be given PRN for SYS BP greater than 150, order read back and entered.
[2019-07-30 12:00] VITALS: BP 120/70
[2019-07-30] MEDS ORDERED: NS Irrig 1000ml ONE (15:08)
[2019-07-30] MEDS ORDERED: NS 275ml ONE (15:08)
[2019-07-30] MEDS ORDERED: Tubing IV Secondary IV ONE (15:08)
--- NOTE | 2019-07-30 15:56 | NUR ---
CASE MANAGEMENT: REVIEW 07/30/19 SI: S/P LAPAROTOMY REVISION SHIELDS POUCH S/P SHIELDS POUCH ENDOSCOPY MALFUNCTION SHIELDS CONTINENT ILEOSTOMY WITH DIFFICULTY INTUBATING 97.9 80 16 120/70 96% ON RA H/H 11.3/33.2 IS: IV D5@100ML/HR IV AMPICILLIN Q6HR IV FLAGYL Q6HR SYNTHROID QAM COZAAR PO QD PERMASTONE MECHANIC DILAUDID QD \: 3E MED SURG UNIT PLAN: NPO CONT CHARLES VENOFER AMBULATE BID START TPN
[2019-07-30 16:00] VITALS: BP 122/68
[2019-07-30] MEDS ORDERED: PCA HYDROmorphone 1mg/ml 30 ML IV PRN (17:45)
--- NOTE | 2019-07-30 17:45 | NUR ---
NURSE NOTES: Received order from Dr. Louie to remove continuous rate on SYSTEM CONFIGURATION SPECIALIST. SYSTEM CONFIGURATION SPECIALIST settings changed per MD order to 0.2mg bolus/6 min lockout/ 6 mg per 4 hr max.
--- NOTE | 2019-07-30 18:12 | Cardiology Progress Note ---
Assessment/Plan Status Narrative 1. UC 2. Malfunctioning Lizarraga Ileostomy 3. Hypothyroidism 4. HTN- New onset- controlled on meds 5. RBBB 6. No clinical evidence of CAD based on history. 7. s/p Revision of Lizarraga continent ileostomy and relocation of stoma; gastrostomy Assessment/Plan Losartan 25 mg QD to control BP Norvasc 2.5 mg PRN. IS to avoid atelectasis. Ambulate DVT PX. Will monitor BP. Adjust meds as needed. Discussed with Dr. Louie, Patient, RN and with Family. Subjective Cardiovascular: Reports: no symptoms Respiratory: Reports: no symptoms Gastrointestinal/Abdominal: Reports: abdominal pain Genitourinary: Reports: no symptoms Subjective Patient with history of UC admitted for revision of Lizarraga ileostomy Pre-op EKG showed RBBB. BP has been in the 150 range. Patient denies h/o CAD, CP, SOB or HTN. 07/29/19- s/p Revision of Lizarraga continent ileostomy and relocation of stoma; gastrostomy. Doing OK post op- on MEDICAL BILLING ASSISTANT Required Norvasc last nite . BP stable today. 07/29- Doing better, ambulated, denies CP, SOB Objective Last 24 Hour Vital Signs Date Time Temp Pulse Resp B/P (MAP) Pulse Ox O2 Delivery O2 Flow Rate FiO2 07/30/19 16:36 16 07/30/19 16:00 98.0 76 16 122/68 (86) 97 07/30/19 12:00 16 07/30/19 12:00 97.9 80 16 120/70 (87) 96 07/30/19 10:21 127/69 07/30/19 09:00 Room Air 07/30/19 08:00 98.7 83 16 127/69 (88) 98 07/30/19 08:00 16 07/30/19 07:34 76 16 99 07/30/19 04:00 99.2 76 16 133/71 (91) 99 07/30/19 04:00 76 15 99 07/30/19 00:00 98.4 73 16 124/74 (91) 97 07/30/19 00:00 73 16 97 07/29/19 21:00 75 122/65 07/29/19 21:00 Room Air 07/29/19 20:00 98.6 75 15 122/65 (84) 97 07/29/19 20:00 75 15 97 Cardiovascular: normal rate, no gallop/murmur Respiratory/Chest: lungs clear, no respiratory distress Abdomen: hypoactive bowel sounds, distended, tender Extremities: normal range of motion, non-tender, normal inspection, no calf tenderness, no swelling Intake and Output 07/29/19 07/30/19 19:00 07:00 Intake Total 2550 ml 1200 ml Output Total 820 ml 840 ml Balance 1730 ml 360 ml IV Total 2550 ml 1200 ml Output Urine Total 550 ml 700 ml Gastric Drainage Total 10 ml Estimated Blood Loss 100 ml Other 160 ml 140 ml Laboratory Tests Test 07/30/19 05:00 White Blood Count 10.4 K/UL (4.8-10.8) # Red Blood Count 3.69 M/UL (4.20-5.40) L Hemoglobin 11.3 G/DL (12.0-16.0) L Hematocrit 33.2 % (37.0-47.0) L Mean Corpuscular Volume 90 FL (80-99) Mean Corpuscular Hemoglobin 30.6 PG (27.0-31.0) Mean Corpuscular Hemoglobin Concent 34.0 G/DL (32.0-36.0) Red Cell Distribution Width 11.4 % (11.6-14.8) L Platelet Count 208 K/UL (150-450) Mean Platelet Volume 7.9 FL (6.5-10.1) Neutrophils (%) (Auto) 74.0 % (45.0-75.0) Lymphocytes (%) (Auto) 14.2 % (20.0-45.0) L Monocytes (%) (Auto) 10.9 % (1.0-10.0) H Eosinophils (%) (Auto) 0.2 % (0.0-3.0) Basophils (%) (Auto) 0.6 % (0.0-2.0) Sodium Level 139 MMOL/L (136-145) Potassium Level 3.9 MMOL/L (3.5-5.1) Chloride Level 106 MMOL/L (98-107) Carbon Dioxide Level 24 MMOL/L (21-32) Anion Gap 9 mmol/L (5-15) Blood Urea Nitrogen 9 mg/dL (7-18) Creatinine 0.8 MG/DL (0.55-1.30) Estimat Glomerular Filtration Rate > 60 mL/min (>60) Glucose Level 123 MG/DL (74-106) H Calcium Level 8.0 MG/DL (8.5-10.1) L Microbiology Date/Time Source Procedure Growth Status 07/28/19 10:15 Urine,Clean Catch Urine Culture - Preliminary Mixed Urogenital Contaminants Resulted Rhett Aldridge MD Jul 30, 2019 18:12
--- NOTE | 2019-07-30 19:00 | NUR ---
NURSE NOTES: Total ileo output for shift: +70mL Total g-tube output: +75mL Total urine output: 675mL Patient's pain is well managed with BANKRUPTCY LEGAL ASSISTANT and breakthrough toradol. Patient got OOB and ambulated in hallway x1 and was up to chair for two hours during my shift.
--- NOTE | 2019-07-30 19:30 | NUR ---
NURSE NOTES: Received report from GLORIA Montesinos. Pt is awake, lying semi-may's; comfortably resting. No signs of acute distress noted. Pt denies any pain at this time. AOx4; able to make needs known. Checked IV site, lines, and rates; patent and draining. Dressing intact. No erythema, bleeding, or infiltration noted. Bed at lowest position. Brakes on. Siderails up x2. Call light within reach. Will continue to monitor. Addendum: 07/30/19 at 2200 by Anjelica Garcia RN *checked IV site, lines, and rates; patent and running. Gtube and ileo; patent and draining.
--- NOTE | 2019-07-30 19:40 | NUR ---
HAND-OFF: Report given to Marita CASTRO.
[2019-07-30 20:00] VITALS: BP 111/59
[2019-07-30] MEDS ORDERED: Dextrose 10% 1,000 ML IV PRN (20:00)
[2019-07-30] MEDS: Fat Emulsion Iv 20% 216 ML in Tpn 1,560 ML IV SCH (20:12)
[2019-07-30] MEDS: Iron Sucrose 100 MG in NS 55 ML IV SCH (20:40)
[2019-07-30] MEDS ORDERED: Fat Emulsion Iv 20% 250 ML IV SCH (21:00)
[2019-07-31] VITALS: BP 117/63
[2019-07-31 04:00] VITALS: BP 118/68
--- NOTE | 2019-07-31 04:00 | NUR ---
NURSE NOTES: Receive a report from GLORIA Amin. Round is done. Pt is asleep without acute distress. On MILL TENDER for pain control but has not using past 4hrs. No pain noted at this time. TPN and fluid are running via PICC on MARISOL. Ileostomy and G-tube are drained via natural gravity with 3hr NS flushing. concentrated urine is patent via toro catheter. Call light within reach. Will continue to monitor.
--- NOTE | 2019-07-31 04:13 | NUR ---
HAND-OFF: Report given to GLORIA Black. Pt is sleeping and in stable condition. Plan of care endorsed.
--- NOTE | 2019-07-31 04:45 | NUR ---
NURSE NOTES: BT checked as 99.9 F. No chilling noted but febrile sensation. Encourage I/S with deep breathing and coughing. Will continue to monitor.
[2019-07-31] MEDS: Ampicillin/Sulbactam Sod 3 GM in NS 110 ML IV SCH ×4 (05:53→23:37)
[2019-07-31] MEDS: NovoLOG Insulin Flexpen SUBQ SCH ×5 (06:00→23:37)
--- NOTE | 2019-07-31 06:00 | NUR ---
NURSE NOTES: Surgery site dressing kept dry and clean. Denies pain while resting. Mild nausea sense noted with burp. Offer medication but refuses to take at this time. Keep head up elevated state. Noted sand scattered blood on toro catheter. Will notify MD and endorse AM shift to follow up. 12 hr output Urine: 875ml Ileostomy: 490ml Gastrostomy: 195ml
[2019-07-31 06:38] LABS: BASOPHILS % (AUTO) 0.8 % (0.0-2.0); EOSINOPHILS % (AUTO) 0.9 % (0.0-3.0); HEMATOCRIT 31.2 % (37.0-47.0); HEMOGLOBIN 10.6 G/DL (12.0-16.0); LYMPHOCYTES % (AUTO) 14.8 % (20.0-45.0); MEAN CORPUSCULAR VOLUME 91 FL (80-99); MONOCYTES % (AUTO) 8.7 % (1.0-10.0); NEUTROPHILS % (AUTO) 74.8 % (45.0-75.0); PLATELET COUNT 183 K/UL (150-450); RED BLOOD COUNT 3.42 M/UL (4.20-5.40); RED CELL DISTRIBUTION WIDTH 11.2 % (11.6-14.8); WHITE BLOOD COUNT 8.3 K/UL (4.8-10.8)
--- NOTE | 2019-07-31 06:45 | NUR ---
NURSE NOTES: Rechecked BT as 98.2F.
[2019-07-31 07:10] LABS: ALANINE AMINOTRANSFERASE 25 U/L (12-78); ALBUMIN/GLOBULIN RATIO 0.6 (1.0-2.7); ALKALINE PHOSPHATASE 57 U/L (46-116); ANION GAP 10 mmol/L (5-15); ASPARTATE AMINO TRANSFERASE 12 U/L (15-37); BILIRUBIN,TOTAL 0.4 MG/DL (0.2-1.0); BLOOD UREA NITROGEN 10 mg/dL (7-18); CALCIUM 8.2 MG/DL (8.5-10.1); CARBON DIOXIDE 25 MMOL/L (21-32); CHLORIDE 107 MMOL/L (98-107); CREATININE 0.8 MG/DL (0.55-1.30); PHOSPHORUS 1.8 MG/DL (2.5-4.9); POTASSIUM 4.5 MMOL/L (3.5-5.1); SODIUM 141 MMOL/L (136-145)
--- NOTE | 2019-07-31 07:15 | NUR ---
HAND-OFF: Report given to GLORIA Montesinos. Round is done.
[2019-07-31] MEDS: PCA shift volume MISC SCH ×2 (07:20→19:00)
--- NOTE | 2019-07-31 07:30 | NUR ---
NURSE NOTES: Received report from o RN. Patient is asleep during rounds, no acute distress noted, RR even and unlabored. Ileo, g-tube and toro to gravity drainage. MARISOL PICC intact, patent, TPN and IVF running per order. Call light within reach, side rails upx2, bed low and locked.
[2019-07-31 08:00] VITALS: BP 133/76
--- NOTE | 2019-07-31 08:35 | General Progress Note ---
Progress Note Progress Note AVSS. Pain controlled with toradol IV + demand dosing sales recruiting coordinator. Having some gas cramps and nausea. Ambulated yesterday Abdomen distended, soft, incisions clean, stoma pink Urine 1550 Gastrostomy 270 bilious BCIR ileo 560 enteric WBC 8300 Hgb down 10.6 Phos 1.8 albumin 2 Imp: Ileus Plan: NPO, TPN, Venofer infuse KPhos maintain continuous drainage of Lizarraga pouch, continue urinary Olivier Sourav Louie MD Jul 31, 2019 08:35
[2019-07-31] MEDS: Potassium Phosphate 15mm/250ml 250 ML IVPB SCH ×2 (09:48→15:29)
[2019-07-31] MEDS: Citalopram Hydrobromide 10mg Tab ORAL SCH (09:49)
[2019-07-31] MEDS: Losartan 25mg tab ORAL SCH (09:49)
[2019-07-31] MEDS ORDERED: Naloxone 0.4mg/ml Inj IVP PRN (10:59)
[2019-07-31] MEDS ORDERED: Rate Change PCA 1 Each MISC PRN (11:00)
[2019-07-31 12:00] VITALS: BP 130/70
[2019-07-31] MEDS ORDERED: DiphenhydrAMINE 50mg/ml Inj IVP PRN (12:00)
--- NOTE | 2019-07-31 13:58 | NUR ---
CASE MANAGEMENT: REVIEW 07/31/19 SI: S/P LAPAROTOMY REVISION SHIELDS POUCH S/P SHIELDS POUCH ENDOSCOPY MALFUNCTION SHIELDS CONTINENT ILEOSTOMY WITH DIFFICULTY INTUBATING 99.9 96 20 118/68 98% ON RA H/H 10.6/31.2 BG 128 CA+8.2 PHOS 1.8 IS: IV D5@100ML/HR IV AMPICILLIN Q6HR IV FLAGYL Q6HR SYNTHROID QAM COZAAR PO QD CASEWORK SPECIALIST DILAUDID QD TPN Q24HR TORADOL Q6HR/PRN \: 3E MED SURG UNIT PLAN: MAINTAIN CONT DRAINAGE OF SHIELDS POUCH
--- NOTE | 2019-07-31 15:08 | NUR ---
*-* INSURANCE *-* ALL CLINICAL AND REVIEWS HAVE BEEN FAXED TO: [facility] REF# [id number] JOEL: MELISSA P: [phone] F: [phone]
[2019-07-31 16:00] VITALS: BP 135/70
[2019-07-31] MEDS ORDERED: PCA HYDROmorphone 1mg/ml 30 ML IV PRN (17:45)
--- NOTE | 2019-07-31 18:30 | NUR ---
NURSE NOTES: Total g-tube output for shift: +225mL Total ileo output for shift: 1020mL Total urine output: 1000mL Patient's had one episode of nausea, relieved with Zofran, no emesis. Patient ambulated in hallway x1 and was OOB x2. Patient's pain is well managed with ROVING FRAME TENDER and Toradol breakthrough.
[2019-07-31] MEDS: Ketorolac 30mg Inj IV PRN (18:50)
--- NOTE | 2019-07-31 19:43 | NUR ---
HAND-OFF: Report given to Marita CASTRO.
--- NOTE | 2019-07-31 19:43 | NUR ---
NURSE NOTES: Received report from GLORIA Montesinos. Pt is awake, lying high-may's; comfortably resting. No signs of acute distress noted. Pt denies any pain at this time. AOx4; able to make needs known. Checked IV site, lines, and rates; patent and running. Gtube and ileo; patent and draining. Dressing intact. No erythema, bleeding, or infiltration noted. Bed at lowest position. Brakes on. Siderails up x2. Call light within reach. Will continue to monitor.
[2019-07-31] MEDS: Iron Sucrose 100 MG in NS 55 ML IV SCH (19:55)
[2019-07-31] MEDS: Dyna-Hex 2% Top Sol 2oz TOPIC SCH (19:55)
[2019-07-31] MEDS: D5 1/4NS w/KCl 20mEq 1,000 ML IV SCH (19:58)
[2019-07-31 20:00] VITALS: BP 132/73
[2019-07-31] MEDS: Fat Emulsion Iv 20% 216 ML in Tpn 1,560 ML IV SCH (20:01)
[2019-08-01] VITALS: BP 114/64
[2019-08-01 04:00] VITALS: BP 134/70
[2019-08-01] MEDS: NovoLOG Insulin Flexpen SUBQ SCH ×4 (05:21→23:51)
[2019-08-01] MEDS: Ampicillin/Sulbactam Sod 3 GM in NS 110 ML IV SCH ×4 (05:37→23:40)
[2019-08-01 06:51] LABS: BASOPHILS % (AUTO) 0.6 % (0.0-2.0); EOSINOPHILS % (AUTO) 2.8 % (0.0-3.0); HEMOGLOBIN 10.5 G/DL (12.0-16.0); LYMPHOCYTES % (AUTO) 13.4 % (20.0-45.0); MEAN CORPUSCULAR VOLUME 91 FL (80-99); MONOCYTES % (AUTO) 10.6 % (1.0-10.0); NEUTROPHILS % (AUTO) 72.6 % (45.0-75.0); PLATELET COUNT 174 K/UL (150-450); RED BLOOD COUNT 3.42 M/UL (4.20-5.40); RED CELL DISTRIBUTION WIDTH 11.2 % (11.6-14.8); WHITE BLOOD COUNT 6.2 K/UL (4.8-10.8)
[2019-08-01 07:02] LABS: ALANINE AMINOTRANSFERASE 25 U/L (12-78); ALBUMIN 2.2 G/DL (3.4-5.0); ALBUMIN/GLOBULIN RATIO 0.7 (1.0-2.7); ALKALINE PHOSPHATASE 53 U/L (46-116); ANION GAP 4 mmol/L (5-15); ASPARTATE AMINO TRANSFERASE 12 U/L (15-37); BILIRUBIN,TOTAL 0.2 MG/DL (0.2-1.0); BLOOD UREA NITROGEN 15 mg/dL (7-18); CALCIUM 8.6 MG/DL (8.5-10.1); CARBON DIOXIDE 33 MMOL/L (21-32); CHLORIDE 108 MMOL/L (98-107); CREATININE 0.8 MG/DL (0.55-1.30); PHOSPHORUS 3.2 MG/DL (2.5-4.9); SODIUM 145 MMOL/L (136-145)
[2019-08-01] MEDS: PCA shift volume MISC SCH ×2 (07:37→19:29)
--- NOTE | 2019-08-01 07:38 | NUR ---
NURSE NOTES: Report given to GLORIA Miller. Pt is sleeping and in stable condition. Plan of care endorsed.
--- NOTE | 2019-08-01 07:45 | NUR ---
NURSE NOTES: Pt sitting in chair w/bed in lowest position & call light/PLANT CONTROLLER button within reach. Pt A&Ox4, VSS, and in no apparent distress. MARISOL PICC line intact/asymptomatic/patent w/IVF & TPN infusing; F/C, ileo, & GT patent/draining well. Will continue to monitor.
[2019-08-01 08:00] VITALS: BP 133/77
[2019-08-01] MEDS: Citalopram Hydrobromide 10mg Tab ORAL SCH (09:21)
[2019-08-01] MEDS: Losartan 25mg tab ORAL SCH (09:21)
[2019-08-01] MEDS: Ketorolac 30mg Inj IV PRN (09:45)
[2019-08-01] MEDS ORDERED: Naloxone 0.4mg/ml Inj IVP PRN (11:27)
[2019-08-01] MEDS ORDERED: Rate Change PCA 1 Each MISC PRN (11:30)
[2019-08-01 12:00] VITALS: BP 142/83
[2019-08-01] MEDS ORDERED: DiphenhydrAMINE 50mg/ml Inj IVP PRN (12:00)
[2019-08-01] MEDS: D5 1/4NS w/KCl 20mEq 1,000 ML IV SCH ×2 (12:33→23:07)
--- NOTE | 2019-08-01 13:58 | General Progress Note ---
Progress Note Progress Note AVSS Abdomen mildly distended, incisions clean, stoma pink Urine 1350 Gastrostomy 495 BCIR ileo 2039 Hgb stable 10.5 BUN up15 albumin 2.2 Imp: High volume ileostomy output + distended abdomen Plan; Increase IV fluids, continue TPN, NPO, toro Stool (ileostomy effluent) for C. diff toxin f/u labs; ambulation BID, continue antibiotics oSurav Louie MD Aug 01, 2019 13:58
--- NOTE | 2019-08-01 14:15 | NUR ---
NURSE NOTES: Pt ambulated w/IRON MELTER around unit w/o incident; pt tolerated well and returned to bed safely. Will continue to monitor.
--- NOTE | 2019-08-01 14:23 | NUR ---
RD ASSESSMENT & RECOMMENDATIONS SEE CARE ACTIVITY FOR COMPLETE ASSESSMENT DAILY ESTIMATED NEEDS: Needs based on Surgery, GI 62.7kg adj 25-30 kcals/kg 8042-4881 total kcals 1-2 g protein/kg 63-125 g total protein 25-30 mL/kg 1628-5471 total fluid mLs NUTRITION DIAGNOSIS: Altered GI fxn r/t h/o colitis and ileostomy as evidenced by pt adm w/ BCIR malfunction now s/p laparotomy with reconstruction BCIR, creation of new valve and stoma relocation to [facility], NPO, TPN. CURRENT DIET:NPO PARENTERAL NUTRITION RECOMMENDATIONS: D/AA Rate: 65 IL Rate: 9 Total Rate: 74 Volume: 1776 % Dextrose: 19% % AA: 5.4% Energy (kcals/kg): 1777 Protein (g/kg protein): 84 Nonprotein KCALS: 1440 GIR (mg CHO/kg/min): 3.3 % Fat KCALS: 24 NCP: N Ratio: 107:1 TPN Comment: Rec D19% + AA 5.4% @65ml/hr w/ IL 20% @9ml/hr- all 3:1. Start at rate per MD. TPN at goal meets 100% est needs, provides 28kcal/adj kg and 1.3g/adj kg. - Monitor BG, Lytes, LFT's - GIR <5 - IL <30% ADDITIONAL RECOMMENDATIONS: 1) Weekly weights, standing as able 2) Monitor BG, LFT's, and Lytes on TPN 3) Rec to lower/ DC added D5% w/ TPN
--- NOTE | 2019-08-01 14:35 | NUR ---
CASE MANAGEMENT: REVIEW 08/01/19 SI: S/P LAPAROTOMY REVISION SHIELDS POUCH S/P SHIELDS POUCH ENDOSCOPY MALFUNCTION SHIELDS CONTINENT ILEOSTOMY WITH DIFFICULTY INTUBATING 98.1 87 20 142/83 98% ON RA H/H 10.5/31.0 CO2-33 BG 134 IS: IV D5@100ML/HR IV AMPICILLIN Q6HR IV FLAGYL Q6HR SYNTHROID QAM COZAAR PO QD SIDE SEAM MACHINE OPERATOR DILAUDID QD TPN Q24HR TORADOL Q6HR/PRN IV VENOFER QHS \: 3E MED SURG UNIT PLAN: MAINTAIN CONT DRAINAGE OF SHIELDS POUCH INCREASE IVF CONT TPN NPO CONT CHARLES CARE STOOL OB -PENDING AMBULATION BID CONT IV ABX
[2019-08-01 16:00] VITALS: BP 137/75
[2019-08-01] MEDS ORDERED: PCA HYDROmorphone 1mg/ml 30 ML IV PRN (17:45)
--- NOTE | 2019-08-01 19:30 | NUR ---
NURSE NOTES: Receive a report from GLORIA Miller. Round is done. Pt is awake and alert. No acute distress. Denies pain. Has not used COPY CHIEF pump. Surgery site dressing kept dry and clean. Ileostomy and G-tube drained with natural gravity with flushing q3hrs. Concentrated urine is patent via toro catheter. TPN and fluid are running via PICC on MARISOL. Encourage to ambulate. Call light within reach. Will continue to monitor.
--- NOTE | 2019-08-01 19:39 | NUR ---
HAND-OFF: Report given to GLORIA Black.
[2019-08-01 20:00] VITALS: BP 128/72
--- NOTE | 2019-08-01 21:15 | NUR ---
NURSE NOTES: Came out of the room for ambulation with staff assist upto nurse station but feeling nauseated. Went back to room. Given Zofran 4mg IVS. Will continue to monitor.
--- NOTE | 2019-08-01 21:45 | NUR ---
NURSE NOTES: Nausea sense got better. No vomiting noted. Pt wants to go back to bed.
[2019-08-01] MEDS: Iron Sucrose 100 MG in NS 55 ML IV SCH (21:47)
[2019-08-01] MEDS: Dyna-Hex 2% Top Sol 2oz TOPIC SCH (21:47)
[2019-08-01] MEDS: Fat Emulsion Iv 20% 216 ML in Tpn 1,560 ML IV SCH (21:48)
[2019-08-02] VITALS: BP 108/60
[2019-08-02 04:00] VITALS: BP 125/71
[2019-08-02] MEDS: Ampicillin/Sulbactam Sod 3 GM in NS 110 ML IV SCH ×4 (05:50→23:45)
--- NOTE | 2019-08-02 06:00 | NUR ---
NURSE NOTES: No acute distress noted. Pain level is 2/10. No N/V noted. Will continue to monitor. 12hr output Urine: 445ml G-tube: 340ml Ileostomy: 850ml
[2019-08-02] MEDS: NovoLOG Insulin Flexpen SUBQ SCH ×3 (06:49→18:00)
[2019-08-02 06:52] LABS: BASOPHILS % (AUTO) 1.3 % (0.0-2.0); EOSINOPHILS % (AUTO) 7.6 % (0.0-3.0); HEMATOCRIT 30.8 % (37.0-47.0); HEMOGLOBIN 10.3 G/DL (12.0-16.0); MEAN CORPUSCULAR VOLUME 90 FL (80-99); MONOCYTES % (AUTO) 15.2 % (1.0-10.0); PLATELET COUNT 193 K/UL (150-450); RED BLOOD COUNT 3.41 M/UL (4.20-5.40); RED CELL DISTRIBUTION WIDTH 11.4 % (11.6-14.8); WHITE BLOOD COUNT 4.1 K/UL (4.8-10.8)
[2019-08-02 07:15] LABS: ALANINE AMINOTRANSFERASE 20 U/L (12-78); ALBUMIN 2.2 G/DL (3.4-5.0); ALBUMIN/GLOBULIN RATIO 0.7 (1.0-2.7); ALKALINE PHOSPHATASE 69 U/L (46-116); ANION GAP 4 mmol/L (5-15); ASPARTATE AMINO TRANSFERASE 16 U/L (15-37); BILIRUBIN,TOTAL 0.2 MG/DL (0.2-1.0); BLOOD UREA NITROGEN 15 mg/dL (7-18); CALCIUM 8.5 MG/DL (8.5-10.1); CARBON DIOXIDE 32 MMOL/L (21-32); CHLORIDE 107 MMOL/L (98-107); CREATININE 0.7 MG/DL (0.55-1.30); POTASSIUM 3.7 MMOL/L (3.5-5.1); SODIUM 143 MMOL/L (136-145)
[2019-08-02] MEDS: PCA shift volume MISC SCH (07:29)
--- NOTE | 2019-08-02 07:30 | NUR ---
HAND-OFF: Report given to GLORIA Mcdonald. Round is done.
--- NOTE | 2019-08-02 07:30 | NUR ---
NURSE NOTES: Patient is in bed awake and able to verbalize needs. Stable. Denies pain while lying in bed. No SOB, breathing is even and unlabored. GT and ileo draining to bag, will flush q3h and PRN as ordered. PICC patent and running IVF and TPN as ordered. MAINTENANCE SERVICE TECHNICIAN set up as ordered and available for patient to use, patient verbalized that she prefers toradol and does not use MAINTENANCE SERVICE TECHNICIAN. f/c patent and draining dark urine, will monitor output throughout shift. Patient is in good spirits, plan of care discussed with patient and mother Kalyani at bedside. Patient is comfortable in bed in locked and lowest position with call light within reach and trapeze overhead. All needs met at this time. Will continue to monitor.
[2019-08-02 08:00] VITALS: BP 150/62
--- NOTE | 2019-08-02 09:00 | NUR ---
NURSE NOTES: Patient ambulated with RN. Tolerated well, does not c/o severe pain. Assisted back to chair without incident.
[2019-08-02] MEDS: Citalopram Hydrobromide 10mg Tab ORAL SCH (09:07)
[2019-08-02] MEDS: Losartan 25mg tab ORAL SCH (09:08)
--- NOTE | 2019-08-02 09:53 | General Progress Note ---
Progress Note Progress Note AVSS Intermittent nausea relieved by Zofran. Not using sluice tender. Denies cramping. c. diff toxin negative but still high volume ileo output Abdomen less distended, incisions clean, stoma pink Urine 795 concentrated Gastrostomy 785 BCIR ileo 2370 WBC 4100 BUN 15 Cr 0.7 Imp: Resolving ileus with high volume ileostomy output and decreasing urine output Plan: NS 100cc/hr + continue TPN + npo;toro maintain Lizarraga pouch catheter to continuous drainage f/u labs; I&O d/c INDUSTRIAL ENG Sourav Louie MD Aug 02, 2019 09:53
[2019-08-02] MEDS ORDERED: Fluconazole 150mg tab ORAL SCH (10:00)
[2019-08-02] MEDS: NS w/KCl 20mEq 1000ml 1,000 ML IV SCH ×2 (10:41→20:27)
--- NOTE | 2019-08-02 11:00 | NUR ---
NURSE NOTES: PERSONALIZATION SPECIALIST dilaudid syringe (28.6mL) wasted with pharmacist, documented in pharmacy log.
[2019-08-02 12:00] VITALS: BP 129/77
[2019-08-02 16:00] VITALS: BP 133/81
--- NOTE | 2019-08-02 18:22 | NUR ---
NURSE NOTES: True ileo: 1095cc brownish liquid output. True GT: 595cc clear liquid output with gastric content. UO: 575cc dark urine output. Patient ambulated x2 with RN during shift without incident. PICC patent and running TPN and IVF as ordered.
--- NOTE | 2019-08-02 19:15 | NUR ---
NURSE NOTES: Receive a report from GLORIA Mcdonald. Round is done. Pt is awake and alert. No acute distress noted. Pain is minimal and not asking any pain medication. Urine color is getting erp pm. TPN and fluid are running via PICC on MARISOL. Ileostomy and G-tube are drained in natural gravity with flushing. No N/V noted except intermittent burps. Pt had two times ambulation earlier of the day. Call light within reach. Will continue to monitor.
--- NOTE | 2019-08-02 19:25 | NUR ---
HAND-OFF: Report given to Alineo RN. patient is stable.
[2019-08-02 20:00] VITALS: BP 123/72
[2019-08-02] MEDS: Dyna-Hex 2% Top Sol 2oz TOPIC SCH (20:24)
[2019-08-02] MEDS: Iron Sucrose 100 MG in NS 55 ML IV SCH (20:25)
[2019-08-02] MEDS: Fat Emulsion Iv 20% 216 ML in Tpn 1,560 ML IV SCH (20:25)
--- NOTE | 2019-08-02 20:30 | NUR ---
NURSE NOTES: BT checked as 100.1 F for routine VS check. No chilling or febrile sensation noted. Rechecked BT as 99.4F. Pt has been using I/S while awake. Breathing is even and non labored. Provide information for possible complication of post-op. Pt verbalizes understanding. Will continue to monitor.
[2019-08-03] VITALS: BP 133/79
--- NOTE | 2019-08-03 | NUR ---
NURSE NOTES: Pt is asleep and BT checked as 98.4 F. No acute distress noted. Will continue to monitor.
[2019-08-03] MEDS: Ampicillin/Sulbactam Sod 3 GM in NS 110 ML IV SCH ×2 (06:00→12:09)
[2019-08-03] MEDS: NovoLOG Insulin Flexpen SUBQ SCH ×4 (06:00→18:00)
[2019-08-03] MEDS: NS w/KCl 20mEq 1000ml 1,000 ML IV SCH ×2 (06:00→16:21)
--- NOTE | 2019-08-03 06:00 | NUR ---
NURSE NOTES: Pt slept well. Denies pain. No N/V noted. Will continue to monitor. 12hr output Urine: 490ml Ileostomy: 525ml G-tube: 330ml
[2019-08-03 07:27] LABS: BASOPHILS % (AUTO) 1.1 % (0.0-2.0); HEMOGLOBIN 10.4 G/DL (12.0-16.0); LYMPHOCYTES % (AUTO) 27.1 % (20.0-45.0); MEAN CORPUSCULAR VOLUME 90 FL (80-99); MONOCYTES % (AUTO) 15.4 % (1.0-10.0); NEUTROPHILS % (AUTO) 48.4 % (45.0-75.0); PLATELET COUNT 212 K/UL (150-450); RED BLOOD COUNT 3.34 M/UL (4.20-5.40); RED CELL DISTRIBUTION WIDTH 11.7 % (11.6-14.8); WHITE BLOOD COUNT 5.7 K/UL (4.8-10.8)
[2019-08-03 07:29] LABS: ALANINE AMINOTRANSFERASE 20 U/L (12-78); ALBUMIN 2.1 G/DL (3.4-5.0); ALBUMIN/GLOBULIN RATIO 0.7 (1.0-2.7); ALKALINE PHOSPHATASE 80 U/L (46-116); ANION GAP 6 mmol/L (5-15); ASPARTATE AMINO TRANSFERASE 19 U/L (15-37); BILIRUBIN,TOTAL 0.2 MG/DL (0.2-1.0); BLOOD UREA NITROGEN 16 mg/dL (7-18); CALCIUM 8.4 MG/DL (8.5-10.1); CARBON DIOXIDE 30 MMOL/L (21-32); CHLORIDE 110 MMOL/L (98-107); CREATININE 0.7 MG/DL (0.55-1.30); PHOSPHORUS 3.3 MG/DL (2.5-4.9); POTASSIUM 3.9 MMOL/L (3.5-5.1); SODIUM 145 MMOL/L (136-145)
--- NOTE | 2019-08-03 07:30 | NUR ---
HAND-OFF: Report given to GLORIA Mcdonald.
--- NOTE | 2019-08-03 07:30 | NUR ---
NURSE NOTES: Patient is in bed awake and able to verbalize needs. Stable. Denies pain or SOB. Ileo and GT draining to bag as ordered, will flush q3h and PRN. Patient continues to be on strict I&O. PICC patent and running TPN and IVF as ordered. f/c draining dark urine, clear, no sediment noted. Patient does not ask for pain medication at this time and states that she is comfortable. Patient is in bed in locked and lowest position with call light within reach. All needs met at this time. Will continue to monitor.
[2019-08-03 08:00] VITALS: BP 138/84
--- NOTE | 2019-08-03 08:30 | NUR ---
NURSE NOTES: f/c removed as ordered. 250cc urine output noted in bag. Bedside commode at bedside, will continue to monitor UO.
[2019-08-03] MEDS: Citalopram Hydrobromide 10mg Tab ORAL SCH (08:44)
[2019-08-03] MEDS: Losartan 25mg tab ORAL SCH (08:45)
--- NOTE | 2019-08-03 09:50 | NUR ---
NURSE NOTES: Patient voided. no c/o burning or discomfort.
[2019-08-03] MEDS: Ketorolac 30mg Inj IV PRN (09:53)
[2019-08-03] MEDS ORDERED: LORazepam 1mg tab SL PRN ×2 (10:00→12:00)
--- NOTE | 2019-08-03 10:13 | General Progress Note ---
Progress Note Progress Note T 100.1 x 1 Feels okay and ambulating well. some pain RLQ stoma site which is in the right inguinal area Abdomen still mildly distended, soft, incisions clean Urine 1065 Gastrostomy 925 bilious BCIR ileo 1820 (decreased) WBC up 5700 Hgb stable 10.4 BUN up 16 Cr 0.7 chemistries okay but albumin 2.1 Imp: slowly resolving ileus Plan; d/c urinary Olivier continue npo, TPN, NS 100cc/hr f/u labs diflucan po (mild thrush) Sourav Louie MD Aug 03, 2019 10:13
[2019-08-03] MEDS ORDERED: Fluconazole 150mg tab ORAL SCH (10:15)
[2019-08-03] MEDS ORDERED: Ketorolac 30mg Inj IV PRN (11:00)
[2019-08-03 12:00] VITALS: BP 132/76
[2019-08-03 15:42] VITALS: BP 127/73
--- NOTE | 2019-08-03 18:43 | NUR ---
NURSE NOTES: True ileo: 745cc brown, liquid output. true gt: 820cc clear liquid output with gastric content. UO: 750cc urine output. no c/o burning or discomfort after removing f/c. patient ambulated x2 around unit.
--- NOTE | 2019-08-03 19:25 | NUR ---
HAND-OFF: Report given to Lisbeth CASTRO. Patient is stable.
--- NOTE | 2019-08-03 19:30 | NUR ---
NURSE NOTES: Received report & pt from Tamara CASTRO. Pt lying in bed, a&ox4, in room air, mother at bedside. No s/s of acute distress & c/o 05/30 pain. Surgical dressing C/D/I. PICC site intact with TPN & IVF running as ordered. Plan of care discussed.
[2019-08-03] MEDS: Dyna-Hex 2% Top Sol 2oz TOPIC SCH (19:53)
[2019-08-03] MEDS: Fat Emulsion Iv 20% 216 ML in Tpn 1,560 ML IV SCH (19:59)
[2019-08-03 20:00] VITALS: BP 139/79
[2019-08-03] MEDS: Iron Sucrose 100 MG in NS 55 ML IV SCH (20:01)
--- NOTE | 2019-08-03 21:00 | NUR ---
NURSE NOTES: Changed PICC line dressing. Tolerated very well.
[2019-08-04] VITALS: BP 130/75
[2019-08-04] MEDS: NS w/KCl 20mEq 1000ml 1,000 ML IV SCH (02:03)
[2019-08-04 04:00] VITALS: BP 125/77
[2019-08-04] MEDS: NovoLOG Insulin Flexpen SUBQ SCH ×5 (05:17→23:56)
[2019-08-04 06:43] LABS: ALANINE AMINOTRANSFERASE 29 U/L (12-78); ALBUMIN 2.3 G/DL (3.4-5.0); ALBUMIN/GLOBULIN RATIO 0.7 (1.0-2.7); ALKALINE PHOSPHATASE 92 U/L (46-116); ANION GAP 10 mmol/L (5-15); ASPARTATE AMINO TRANSFERASE 17 U/L (15-37); BILIRUBIN,TOTAL 0.3 MG/DL (0.2-1.0); BLOOD UREA NITROGEN 17 mg/dL (7-18); CALCIUM 8.4 MG/DL (8.5-10.1); CARBON DIOXIDE 26 MMOL/L (21-32); CHLORIDE 110 MMOL/L (98-107); CREATININE 0.7 MG/DL (0.55-1.30); POTASSIUM 4.3 MMOL/L (3.5-5.1); SODIUM 146 MMOL/L (136-145)
[2019-08-04 06:48] LABS: BASOPHILS % (AUTO) 0.9 % (0.0-2.0); EOSINOPHILS % (AUTO) 6.9 % (0.0-3.0); HEMATOCRIT 31.4 % (37.0-47.0); HEMOGLOBIN 10.7 G/DL (12.0-16.0); LYMPHOCYTES % (AUTO) 25.4 % (20.0-45.0); MEAN CORPUSCULAR VOLUME 91 FL (80-99); MONOCYTES % (AUTO) 10.8 % (1.0-10.0); PLATELET COUNT 240 K/UL (150-450); RED BLOOD COUNT 3.44 M/UL (4.20-5.40); RED CELL DISTRIBUTION WIDTH 12.1 % (11.6-14.8); WHITE BLOOD COUNT 8.3 K/UL (4.8-10.8)
--- NOTE | 2019-08-04 07:31 | NUR ---
HAND-OFF: Report given to Elba CASTRO. Pt in stable condition.
--- NOTE | 2019-08-04 07:54 | NUR ---
NURSE NOTES: Report received from GLORIA Bob. Patient is able to ambulate self to the restroom. Steady gait and stable. No signs of any distress. Ileo and GT noted, draining well. PICC line noted in the Left arm, running IVF and TPN. Patient denies any pain. Will continue to monitor.
[2019-08-04 08:00] VITALS: BP 154/84
--- NOTE | 2019-08-04 08:29 | General Progress Note ---
Progress Note Progress Note Afebrile x 36 hours, VSS Feels hungry Voiding well Abdomen soft, distention resolved, incisions clean, stoma healing nicely Urine 1350 Gastrostomy 1315 (balloon partially deflated) BCIR ileo 1115 labs all satisfactory with albumin up to 2.3 Imp: ileus resolved Plan: clear liquid diet continue TPN, reduce and change IV fluids, maintain gastrostomy and ileo catheters to continuous drainage Sourav Louie MD Aug 04, 2019 08:29
[2019-08-04] MEDS: Losartan 25mg tab ORAL SCH (08:46)
[2019-08-04] MEDS: Citalopram Hydrobromide 10mg Tab ORAL SCH (08:47)
[2019-08-04] MEDS: D5 1/4NS w/KCl 20mEq 1,000 ML IV SCH (08:53)
--- NOTE | 2019-08-04 09:30 | NUR ---
NURSE NOTES: Patient is in bed awake and able to verbalize needs. Stable. Denies pain or SOB. GT and ileo draining to bag as ordered, will flush q3h and monitor output. Patient able to void, will monitor output. Dressing c/d/i. PICC patent and running TPN and IVF as ordered. Patient in bed in locked and lowest position with call light within reach. Will continue to monitor.
[2019-08-04 12:00] VITALS: BP 144/75
--- NOTE | 2019-08-04 12:55 | NUR ---
*-* INSURANCE *-* ALL CLINICAL AND REVIEWS HAVE BEEN FAXED TO: [facility] REF# [id number] JOEL: MELISSA P: [phone] F: [phone]
--- NOTE | 2019-08-04 15:36 | NUR ---
CASE MANAGEMENT: REVIEW 08/02/19 SI: S/P LAPAROTOMY REVISION SHIELDS POUCH S/P SHIELDS POUCH ENDOSCOPY MALFUNCTION SHIELDS CONTINENT ILEOSTOMY WITH DIFFICULTY INTUBATING 98.1 78 19 132/70 93% ON 3L NC WBC 4.1 H/H 10.3/30.8 BG 149 IS: IV D5@100ML/HR SYNTHROID QAM COZAAR PO QD BRUSH HAND DILAUDID QD TPN Q24HR TORADOL Q6HR/PRN IV VENOFER QHS EMMA- HEX TP QD NOVOLOG SQ Q6HR \: 3E MED SURG UNIT PLAN: MAINTAIN CONT DRAINAGE OF SHIELDS POUCH CONT TPN NPO CONT CHARLES CARE DC BRUSH HAND STOOL OB -PENDING AMBULATION BID CASE MANAGEMENT: REVIEW 08/03/19 SI: S/P LAPAROTOMY REVISION SHIELDS POUCH S/P SHIELDS POUCH ENDOSCOPY MALFUNCTION SHIELDS CONTINENT ILEOSTOMY WITH DIFFICULTY INTUBATING 98.1 78 20 138/84 95% ON RA CL-110 H/H 10.4/30 BG 135 CA+ 8.4 IS: IV D5@100ML/HR SYNTHROID QAM COZAAR PO QD BRUSH HAND DILAUDID QD TPN Q24HR TORADOL Q6HR/PRN IV VENOFER QHS EMMA- HEX TP QD NOVOLOG SQ Q6HR \: 3E MED SURG UNIT PLAN: MAINTAIN CONT DRAINAGE OF SHIELDS POUCH CONT TPN CONT NPO DC CHARLES CATHETER DC BRUSH HAND STOOL OB -PENDING AMBULATION BID PO ABX (MILD THRUSH) CASE MANAGEMENT: REVIEW 08/04/19 SI: S/P LAPAROTOMY REVISION SHIELDS POUCH S/P SHIELDS POUCH ENDOSCOPY MALFUNCTION SHIELDS CONTINENT ILEOSTOMY WITH DIFFICULTY INTUBATING 98.3 76 20 144/75 97% ON RA NA+ 146 CL-110 H/H 10.7/31.4 BG 118 CA+ 8.4 IS: IV D5@100ML/HR SYNTHROID QAM COZAAR PO QD BRUSH HAND DILAUDID QD TPN Q24HR TORADOL Q6HR/PRN EMMA- HEX TP QD NOVOLOG SQ Q6HR \: 3E MED SURG UNIT PLAN: MAINTAIN GASTROSTOMY AND ILEO CATHETER TO CONT DRAINAGE CONT TPN START ON CLEAR LIQ DIET
[2019-08-04 16:00] VITALS: BP 134/72
--- NOTE | 2019-08-04 18:55 | NUR ---
NURSE NOTES: Patient tolerates clear liquid diet. Total oral intake is 480 mL. Patient consumed 25% of breakfast, 25% of lunch and 90% dinner. True ileo output is 345mL. Brown, greenish liquid. True GT output is 1220 mL. Clear liquids with gastric contents. Flushed a total of 80 mL in the GT and 80 mL in Ileo. Urine output of 1050mL, dark color. Patient denies any pain. Patient is stable, no signs of distress. Patient ambulated with family twice around the unit today. Tolerated activity well.
--- NOTE | 2019-08-04 19:31 | NUR ---
HAND-OFF: Report given to GLORIA Wilson. Seen patient in room, stable and no signs of distress.
--- NOTE | 2019-08-04 19:40 | NUR ---
NURSE NOTES: Received Report from GLORIA Mcdonald, pt is A/O x4, breaths even regular and unlabored on RA. Pt denies any pain. PT has an Ileostomy on L lower quad and G tube on L upper quad on continuous drain and Q3 flush. Pt has a MARISOL picc line with i.v fluids running, patent and asymptomatic , dressing clean and intact. Family by the bed side . Bed in low locked position and call light with in reach
[2019-08-04 20:00] VITALS: BP 128/71
[2019-08-04] MEDS: Dyna-Hex 2% Top Sol 2oz TOPIC SCH (20:05)
[2019-08-04] MEDS: Fat Emulsion Iv 20% 216 ML in Tpn 1,560 ML IV SCH (20:08)
[2019-08-05] VITALS: BP 121/69
[2019-08-05 04:00] VITALS: BP 106/79
[2019-08-05] MEDS: D5 1/4NS w/KCl 20mEq 1,000 ML IV SCH (04:10)
[2019-08-05] MEDS: NovoLOG Insulin Flexpen SUBQ SCH ×3 (06:00→17:45)
[2019-08-05 06:22] LABS: BASOPHILS % (AUTO) 1.2 % (0.0-2.0); EOSINOPHILS % (AUTO) 7.1 % (0.0-3.0); HEMATOCRIT 30.8 % (37.0-47.0); HEMOGLOBIN 10.6 G/DL (12.0-16.0); LYMPHOCYTES % (AUTO) 18.5 % (20.0-45.0); MEAN CORPUSCULAR VOLUME 89 FL (80-99); MONOCYTES % (AUTO) 12.2 % (1.0-10.0); NEUTROPHILS % (AUTO) 60.9 % (45.0-75.0); PLATELET COUNT 246 K/UL (150-450); RED BLOOD COUNT 3.45 M/UL (4.20-5.40); RED CELL DISTRIBUTION WIDTH 11.5 % (11.6-14.8); WHITE BLOOD COUNT 10.1 K/UL (4.8-10.8)
[2019-08-05 06:56] LABS: ALANINE AMINOTRANSFERASE 29 U/L (12-78); ALBUMIN 2.3 G/DL (3.4-5.0); ALBUMIN/GLOBULIN RATIO 0.7 (1.0-2.7); ALKALINE PHOSPHATASE 93 U/L (46-116); ANION GAP 5 mmol/L (5-15); ASPARTATE AMINO TRANSFERASE 18 U/L (15-37); BILIRUBIN,TOTAL 0.2 MG/DL (0.2-1.0); BLOOD UREA NITROGEN 18 mg/dL (7-18); CALCIUM 8.6 MG/DL (8.5-10.1); CARBON DIOXIDE 26 MMOL/L (21-32); CHLORIDE 107 MMOL/L (98-107); CREATININE 0.8 MG/DL (0.55-1.30); POTASSIUM 4.1 MMOL/L (3.5-5.1); SODIUM 138 MMOL/L (136-145)
--- NOTE | 2019-08-05 07:19 | NUR ---
HAND-OFF: Report given to ahim Delvalle.
--- NOTE | 2019-08-05 07:31 | NUR ---
NURSE NOTES: Received report from GLORIA Wilson. Patient is seen in her room, sitting and eating breakfast. Patient is stable and no signs of distress. PICC line in the Left arm noted with IVF and TPN. GT and Ileo drain noted. Will continue to monitor.
[2019-08-05 08:00] VITALS: BP 141/79
[2019-08-05] MEDS ORDERED: HYDROcodone/Acetamin 5/325 tab ORAL PRN (08:30)
--- NOTE | 2019-08-05 08:40 | General Progress Note ---
Progress Note Progress Note AVSS Tolerated small amounts of clear liquids only 480cc total. No GI complaints Abdomen soft, healing nicely Urine 188 Gastrostomy 1590 BCIR ileo 515 Labs all stable/satisfactory except low albumin Imp: slowly improving Plan; Gastrostomy 3:3 protocol starting today continue clear liquid diet and TPN, continuous drainage of Lizarraga pouch Sourav Louie MD Aug 05, 2019 08:40
[2019-08-05] MEDS: Citalopram Hydrobromide 10mg Tab ORAL SCH (09:07)
[2019-08-05] MEDS: Losartan 25mg tab ORAL SCH (09:07)
--- NOTE | 2019-08-05 10:01 | NUR ---
RD ASSESSMENT & RECOMMENDATIONS SEE CARE ACTIVITY FOR COMPLETE ASSESSMENT DAILY ESTIMATED NEEDS: Needs based on Surgery, GI 62.7kg adj 25-30 kcals/kg 2329-4620 total kcals 1-2 g protein/kg 63-125 g total protein 25-30 mL/kg 4321-8768 total fluid mLs NUTRITION DIAGNOSIS: Altered GI fxn r/t h/o colitis and ileostomy as evidenced by pt adm w/ BCIR malfunction now s/p laparotomy with reconstruction BCIR, creation of new valve and stoma relocation to [facility], now on CLD + remains on TPN. CURRENT DIET:CLEAR LIQUID DIET PO DIET RECOMMENDATIONS: per MD PARENTERAL NUTRITION RECOMMENDATIONS: D/AA Rate: 65 IL Rate: 9 Total Rate: 74 Volume: 1776 % Dextrose: 19% % AA: 5.4% Energy (kcals/kg): 1777 Protein (g/kg protein): 84 Nonprotein KCALS: 1440 GIR (mg CHO/kg/min): 3.3 % Fat KCALS: 24 NCP: N Ratio: 107:1 TPN Comment: Maintain D19% + AA 5.4% @65ml/hr w/ IL 20% @9ml/hr- all 3:1. TPN at goal meets 100% est needs, provides 28kcal/adj kg and 1.3g/adj kg. - Monitor BG, Lytes, LFT's - GIR <5 - IL <30% ADDITIONAL RECOMMENDATIONS: 1) Weekly weights, standing as able 2) Monitor BG, LFT's, and Lytes on TPN 3) Rec to lower/ DC added D5% w/ TPN + CLD 4) Monitor diet advancement, need to taper down TPN
[2019-08-05 11:33] LABS: APPEARANCE,URINE CLEAR; BILIRUBIN, URINE NEGATIVE (NEGATIVE); COLOR,URINE PALE YELLOW; GLUCOSE, URINE (UA) NEGATIVE (NEGATIVE); KETONES,URINE NEGATIVE (NEGATIVE); LEUKOCYTE ESTERASE ,URINE NEGATIVE (NEGATIVE); NITRITE,URINE NEGATIVE (NEGATIVE); PH,URINE 8 (4.5-8.0); PROTEIN,URINE NEGATIVE (NEGATIVE); UROBILINOGEN,URINE NORMAL MG/DL (0.0-1.0)
[2019-08-05 12:00] VITALS: BP 127/76
--- NOTE | 2019-08-05 13:04 | NUR ---
CASE MANAGEMENT: REVIEW 08/05/19 SI: S/P LAPAROTOMY REVISION SHIELDS POUCH S/P SHIELDS POUCH ENDOSCOPY UTI MALFUNCTION SHIELDS CONTINENT ILEOSTOMY WITH DIFFICULTY INTUBATING 98.9 79 20 127/76 100% ON RA H/H 10.6/30.8 IS: IV D5@50 ML/HR SYNTHROID QAM COZAAR PO QD TPN Q24HR EMMA-HEX 2% TP QD NOVOLOG SQ QID IV TORADOL Q6/PRN \: 3E MED SURG UNIT PLAN: Gastrostomy 3:3 protocol starting today CONT TPN CONT ON CLEAR LIQ DIET continuous drainage of Shields pouch
--- NOTE | 2019-08-05 15:24 | NUR ---
*-* INSURANCE *-* ALL CLINICAL AND REVIEWS HAVE BEEN FAXED TO: [facility] REF# [id number] JOEL: MELISSA P: [phone] F: [phone]
[2019-08-05 16:00] VITALS: BP 121/68
--- NOTE | 2019-08-05 18:46 | NUR ---
NURSE NOTES: Patient is awake, stable, and alert oriented x4. Patient denies any pain. During our shift patient consumed 820 mL of fluids PO, about 25 % breakfast, 25% lunch and 25% dinner. Urine output total of 1300mL. Flushed patient q3 and GT 3:3, total of 80mL GT Flush and 80mL Ileo flush. True GT output is 595mL. True Ileo output is 1070 mL. Tolerates clear liquid diet , ambulated twice today around the unit.
--- NOTE | 2019-08-05 19:23 | NUR ---
HAND-OFF: Report given to Steve CASTRO. Patient is in bed, family at bedside. Alert and stable.
--- NOTE | 2019-08-05 19:24 | NUR ---
NURSE NOTES: Received Report from GLORIA Burns, pt is A/O x4, breaths even regular and unlabored on RA., pt sitting at the edge of the bed, Pt denies any pain, denies any N/V. PT has an Ileostomy on L lower quad q3 flush on continuous drain and G tube on L upper quad,on protocol for clamping Q3:3 . Pt has a MARISOL picc line with i.v fluids running, patent and asymptomatic , dressing clean and intact. Family by the bed side . Bed in low locked position and call light with in reach
[2019-08-05 20:00] VITALS: BP 120/64
[2019-08-05] MEDS: Dyna-Hex 2% Top Sol 2oz TOPIC SCH (20:04)
[2019-08-05] MEDS: Fat Emulsion Iv 20% 216 ML in Tpn 1,560 ML IV SCH (20:06)
[2019-08-06] VITALS: BP 108/56
[2019-08-06] MEDS: D5 1/4NS w/KCl 20mEq 1,000 ML IV SCH ×2 (00:15→09:11)
[2019-08-06 04:00] VITALS: BP 127/68
[2019-08-06] MEDS: NovoLOG Insulin Flexpen SUBQ SCH ×5 (06:00→23:54)
[2019-08-06 06:15] LABS: BASOPHILS % (AUTO) 1.1 % (0.0-2.0); EOSINOPHILS % (AUTO) 5.8 % (0.0-3.0); HEMATOCRIT 32.2 % (37.0-47.0); HEMOGLOBIN 10.9 G/DL (12.0-16.0); LYMPHOCYTES % (AUTO) 18.2 % (20.0-45.0); MEAN CORPUSCULAR VOLUME 90 FL (80-99); MONOCYTES % (AUTO) 13.9 % (1.0-10.0); PLATELET COUNT 268 K/UL (150-450); RED BLOOD COUNT 3.58 M/UL (4.20-5.40); RED CELL DISTRIBUTION WIDTH 11.9 % (11.6-14.8); WHITE BLOOD COUNT 8.5 K/UL (4.8-10.8)
[2019-08-06 06:56] LABS: ALANINE AMINOTRANSFERASE 35 U/L (12-78); ALBUMIN 2.6 G/DL (3.4-5.0); ALBUMIN/GLOBULIN RATIO 0.9 (1.0-2.7); ALKALINE PHOSPHATASE 121 U/L (46-116); ANION GAP 8 mmol/L (5-15); ASPARTATE AMINO TRANSFERASE 22 U/L (15-37); BILIRUBIN,TOTAL 0.4 MG/DL (0.2-1.0); BLOOD UREA NITROGEN 20 mg/dL (7-18); CALCIUM 8.7 MG/DL (8.5-10.1); CARBON DIOXIDE 30 MMOL/L (21-32); CHLORIDE 108 MMOL/L (98-107); CREATININE 0.7 MG/DL (0.55-1.30); PHOSPHORUS 4.5 MG/DL (2.5-4.9); POTASSIUM 4.8 MMOL/L (3.5-5.1); SODIUM 146 MMOL/L (136-145)
--- NOTE | 2019-08-06 07:37 | NUR ---
NURSE NOTES: AWAKE/ALERT. PAIN SCALE 2/10. GT ON 3:3 PROTOCOL TOLERATED. IN NO APPARENT DISTRESS.
[2019-08-06 08:00] VITALS: BP 146/84
--- NOTE | 2019-08-06 08:02 | NUR ---
HAND-OFF: Report given to Ken hendricks.
--- NOTE | 2019-08-06 08:34 | General Progress Note ---
Progress Note Progress Note AVSS Tolerating clear liquids 25% and gastrostomy 3:3 protocol Abdomen soft, healing well Urine 1985 Gastrostomy 915 BCIR ileo 181 labs okay albumin up 2.6 Imp: improved but still high volume ileo output Plan; BCIR diet continue TPN and continuous drainage of BCIR gastrostomy 5:1 protocol Sourav Louie MD Aug 06, 2019 08:34
[2019-08-06] MEDS: Citalopram Hydrobromide 10mg Tab ORAL SCH (08:58)
[2019-08-06] MEDS: Losartan 25mg tab ORAL SCH (08:58)
[2019-08-06] MEDS ORDERED: Phytonadione 10 mg/mL 1ml amp SUBQ SCH (09:00)
--- NOTE | 2019-08-06 09:44 | NUR ---
ASE MANAGEMENT: REVIEW 08/06/19 SI: UTI S/P LAPAROTOMY REVISION SHIELDS POUCH S/P SHIELDS POUCH ENDOSCOPY MALFUNCTION SHIELDS CONTINENT ILEOSTOMY WITH DIFFICULTY INTUBATING 97.8 85 18 127/68 98% ON RA H/H 10.9/32.2 NA+ 146 IS: IV D5@25 ML/HR TPN Q24HR COZAAR PO QD EMMA-HEX 2% TP QD NOVOLOG SQ QID IV TORADOL Q6/PRN SYNTHROID QAM \: 3E MED SURG UNIT PLAN: Gastrostomy 5:1 protocol starting today; PLUG DURING MEALS CONT TPN START ON BCIR LOW RESIDUAL DIET continuous drainage of BCIR
--- NOTE | 2019-08-06 10:00 | NUR ---
NURSE NOTES: OOB,AMBULATED OUT IN THE SONI, TOLERATED
[2019-08-06 12:00] VITALS: BP 127/73
[2019-08-06 16:00] VITALS: BP 118/71
--- NOTE | 2019-08-06 18:30 | NUR ---
NURSE NOTES: TOLERATED BCIR DIET. GT 5:1 PROTOCOL CONTINUED. IN NO ACUTE DISCOMFORT.
--- NOTE | 2019-08-06 19:00 | NUR ---
NURSE NOTES: AWAKE/ALERT. IN NO ACUTE DISTRESS.
--- NOTE | 2019-08-06 19:27 | NUR ---
HAND-OFF: Report given to DMITRIY NICHOLSON RN.
--- NOTE | 2019-08-06 19:30 | NUR ---
NURSE NOTES: Receive a report from GLORIA Duong. Round is done. Pt is awake and alert. No acute distress noted. G-tube is clamped and no N/V or no cramping noted. Pt says that it was hard when it clamped G-tube at the first time but it got better as time went. Pt is aware of unclamping G-tube @2000. Brown and greenish drainage via ileostomy in natural gravity with N/S flushing. TPN and fluid are running via PICC on MARISOL. Site is clear. Call light within reach. Will continue to monitor.
[2019-08-06 20:00] VITALS: BP 98/58
[2019-08-06] MEDS: Dyna-Hex 2% Top Sol 2oz TOPIC SCH (20:22)
[2019-08-06] MEDS: Fat Emulsion Iv 20% 216 ML in Tpn 1,560 ML IV SCH (20:23)
--- NOTE | 2019-08-06 21:00 | NUR ---
NURSE NOTES: Reclamp G-tube and pt made aware of calling nurse if pt senses bloating, cramping, or N/V. Will continue to monitor.
[2019-08-07] VITALS: BP 121/68
--- NOTE | 2019-08-07 02:00 | NUR ---
NURSE NOTES: No noted N/V, cramping noted. Unclamp G-tube with flushing. Will continue to monitor.
[2019-08-07 04:00] VITALS: BP 109/61
[2019-08-07] MEDS: NovoLOG Insulin Flexpen SUBQ SCH ×3 (05:45→18:00)
[2019-08-07] MEDS: D5 1/4NS w/KCl 20mEq 1,000 ML IV SCH (05:46)
--- NOTE | 2019-08-07 06:00 | NUR ---
NURSE NOTES: Pt is asleep comfortably. No acute distress noted. No N/V or cramping discomfort noted with G-tube clamped. Will have breakfast while clamping. Will continue to monitor. 12hr output Urine: 470ml Ileostomy: 865ml G-tube: -30ml
--- NOTE | 2019-08-07 07:20 | NUR ---
NURSE NOTES: Received patient in bed, patient is awake and alert oriented x4,on RA, No sign of respiratory distress. G-tube is clamped no cramping noted. on TPN and fluid are running via PICC on MARISOL, on ileostomy to gravity, Call light within reach. Will continue to monitor patient condition ruthie pinon
--- NOTE | 2019-08-07 07:30 | NUR ---
HAND-OFF: Report given to GLORIA Hickman. Round is done. Pt is having breakfast. Denies any pain/ cramping.
[2019-08-07 08:00] VITALS: BP 121/64
[2019-08-07] MEDS: Losartan 25mg tab ORAL SCH (08:35)
[2019-08-07] MEDS: Citalopram Hydrobromide 10mg Tab ORAL SCH (08:35)
--- NOTE | 2019-08-07 08:35 | NUR ---
nurse notes per Arielle RN G-Tube clamped as ordered ruthie pinon
[2019-08-07] MEDS ORDERED: NS Irrig 1000ml ONE (09:13)
[2019-08-07] MEDS ORDERED: NS 275ml ONE (09:13)
[2019-08-07] MEDS ORDERED: Tubing IV Secondary IV ONE (09:13)
--- NOTE | 2019-08-07 10:08 | NUR ---
CASE MANAGEMENT: REVIEW 08/07/19 SI: UTI S/P LAPAROTOMY REVISION SHIELDS POUCH S/P SHIELDS POUCH ENDOSCOPY MALFUNCTION SHIELDS CONTINENT ILEOSTOMY WITH DIFFICULTY INTUBATING 98.7 80 19 121/64 97 % ON RA IS: IV D5@25 ML/HR TPN Q24HR COZAAR PO QD EMMA-HEX 2% TP QD NOVOLOG SQ QID IV TORADOL Q6/PRN SYNTHROID QAM CELEBREX PO QD \: 3E MED SURG UNIT PLAN:
--- NOTE | 2019-08-07 11:24 | NUR ---
*-* INSURANCE *-* UPDATED CLINICAL AND REVIEWS HAVE BEEN FAXED TO: [facility] REF# [id number] JOEL: MELISSA P: [phone] F: [phone]
[2019-08-07 12:00] VITALS: BP 124/64
--- NOTE | 2019-08-07 12:30 | General Progress Note ---
Progress Note Progress Note AVSS Eating small amounts of BCIR diet. ABdomen soft, healing well Urine 2420 BCIR ileo 865 Imp. Slowly improving with BCIR diet Plan: continue TPN until adequate po intake f/u labs maintain continuous drainage of Lizarraga Pouch Sourav Louie MD Aug 07, 2019 12:30
[2019-08-07 16:00] VITALS: BP 122/68
--- NOTE | 2019-08-07 19:45 | NUR ---
HAND-OFF: Report given to Ms. Leonid RN accordingly patient resting comfortably in bed, denies any discomfort GLORIA pinon
--- NOTE | 2019-08-07 19:46 | NUR ---
NURSE NOTES: Patient is in bed, awake and alert x4. On room air with no signs of distress or SOB. G-tube clamped. Denies any pain. MARISOL picc line noted and running TPN/IVF as ordered. Ileostomy draining to gravity. Call light within reach. Will continue to monitor.
[2019-08-07 20:00] VITALS: BP 113/75
[2019-08-07] MEDS: Dyna-Hex 2% Top Sol 2oz TOPIC SCH (20:06)
[2019-08-07] MEDS: Fat Emulsion Iv 20% 216 ML in Tpn 1,560 ML IV SCH (20:06)
[2019-08-08] VITALS: BP 124/69
[2019-08-08 04:00] VITALS: BP 125/69
--- NOTE | 2019-08-08 04:20 | NUR ---
NURSE NOTES: Patient c/o of discomfort, stating she feels "a lot of gas". Encouraged pt to ambulate.
--- NOTE | 2019-08-08 04:23 | NUR ---
NURSE NOTES: Patient ambulated in the underwood. Tolerated well.
[2019-08-08] MEDS: NovoLOG Insulin Flexpen SUBQ SCH ×5 (06:00→23:47)
--- NOTE | 2019-08-08 06:05 | NUR ---
NURSE NOTES: Patient reported only mild relief of discomfort after ambulation, but still experiencing gas discomfort. Aspirated from ileostomy, resulting in more output. Patient reports relief of discomfort after aspiration. Will continue to monitor.
--- NOTE | 2019-08-08 06:20 | NUR ---
NURSE NOTES: Left message for Dr. Louie. Informed about the patient. Awaiting callback.
[2019-08-08 06:32] LABS: BASOPHILS % (AUTO) 0.7 % (0.0-2.0); EOSINOPHILS % (AUTO) 4.1 % (0.0-3.0); HEMATOCRIT 32.7 % (37.0-47.0); LYMPHOCYTES % (AUTO) 13.6 % (20.0-45.0); MEAN CORPUSCULAR VOLUME 91 FL (80-99); MONOCYTES % (AUTO) 8.5 % (1.0-10.0); PLATELET COUNT 277 K/UL (150-450); RED BLOOD COUNT 3.61 M/UL (4.20-5.40); RED CELL DISTRIBUTION WIDTH 12.2 % (11.6-14.8); WHITE BLOOD COUNT 11.7 K/UL (4.8-10.8)
--- NOTE | 2019-08-08 06:45 | NUR ---
NURSE NOTES: Spoke with Dr. Louie. New orders received.
[2019-08-08 06:58] LABS: ALANINE AMINOTRANSFERASE 40 U/L (12-78); ALBUMIN 2.7 G/DL (3.4-5.0); ALBUMIN/GLOBULIN RATIO 0.8 (1.0-2.7); ALKALINE PHOSPHATASE 149 U/L (46-116); ANION GAP 7 mmol/L (5-15); ASPARTATE AMINO TRANSFERASE 16 U/L (15-37); BILIRUBIN,TOTAL 0.2 MG/DL (0.2-1.0); BLOOD UREA NITROGEN 21 mg/dL (7-18); CALCIUM 8.7 MG/DL (8.5-10.1); CARBON DIOXIDE 32 MMOL/L (21-32); CHLORIDE 106 MMOL/L (98-107); CREATININE 0.8 MG/DL (0.55-1.30); PHOSPHORUS 3.9 MG/DL (2.5-4.9); POTASSIUM 4.2 MMOL/L (3.5-5.1); SODIUM 145 MMOL/L (136-145)
--- NOTE | 2019-08-08 07:30 | NUR ---
NURSE NOTES: Patient is sitting up in chair awake and able to verbalize needs. stable. Denies pain or SOB. PICC patent and running IVF and TPN as ordered. GT unclamped as ordered, will clamp in 1 hour. Ileo draining to bag, will flush q3h and PRN. Patient instructed to use call light for assistance, verbalized understanding. Patient is in chair with call light within reach. All needs met at this time. Will continue to monitor.
--- NOTE | 2019-08-08 07:36 | NUR ---
HAND-OFF: Report given to GLORIA Mcdonald.
[2019-08-08 08:00] VITALS: BP 139/77
--- NOTE | 2019-08-08 08:30 | NUR ---
NURSE NOTES: GT plugged. No output noted in bag. Patient states she is feeling really good. No c/o abdominal pain or discomfort at this time. Will continue to monitor.
[2019-08-08] MEDS: D5 1/4NS w/KCl 20mEq 1,000 ML IV SCH (08:53)
[2019-08-08] MEDS: Losartan 25mg tab ORAL SCH (08:54)
[2019-08-08] MEDS: Citalopram Hydrobromide 10mg Tab ORAL SCH (08:54)
--- NOTE | 2019-08-08 09:40 | NUR ---
CASE MANAGEMENT: REVIEW 08/08/19 SI: UTI S/P LAPAROTOMY REVISION SHIELDS POUCH S/P SHIELDS POUCH ENDOSCOPY MALFUNCTION SHIELDS CONTINENT ILEOSTOMY WITH DIFFICULTY INTUBATING 98.1 85 18 125/69 97% ON RA WBC 11.7 H/H 11.0/32.7 BUN 21 BG 125 [id number] IS: IV D5@25 ML/HR TPN Q24HR COZAAR PO QD EMMA-HEX 2% TP QD NOVOLOG SQ QID IV TORADOL Q6/PRN SYNTHROID QAM CELEBREX PO QD VIT K SQ X1 WK IV ZOFRAN Q4HR/PRN \: 3E MED SURG UNIT PLAN: MAINTAIN CONTINUOUS DRAINAGE OF SHIELDS POUCH DRAIN GASTROTOMY FOR 1 HOUR AND THEN RECLAMP GTUBE CONT PLUGGED
--- NOTE | 2019-08-08 10:08 | NUR ---
*-* INSURANCE *-* UPDATED CLINICAL AND REVIEWS HAVE BEEN FAXED TO: [facility] REF# [id number] BRYNN: MELISSA PH: [phone] FAX: [phone]
--- NOTE | 2019-08-08 10:18 | NUR ---
RD ASSESSMENT & RECOMMENDATIONS SEE CARE ACTIVITY FOR COMPLETE ASSESSMENT DAILY ESTIMATED NEEDS: Needs based on Surgery, GI 62.7kg adj 25-30 kcals/kg 5937-4509 total kcals 1-2 g protein/kg 63-125 g total protein 25-30 mL/kg 7535-8341 total fluid mLs NUTRITION DIAGNOSIS: Altered GI fxn r/t h/o colitis and ileostomy as evidenced by pt adm w/ BCIR malfunction now s/p laparotomy with reconstruction BCIR, creation of new valve and stoma relocation to [facility], now on bcir low fiber low residue diet + remains on TPN. CURRENT DIET:now BCIR PO DIET RECOMMENDATIONS: BCIR diet as tolerated PARENTERAL NUTRITION RECOMMENDATIONS: D/AA Rate: 65 IL Rate: 9 Total Rate: 74 Volume: 1776 % Dextrose: 19% % AA: 5.4% Energy (kcals/kg): 1777 Protein (g/kg protein): 84 Nonprotein KCALS: 1440 GIR (mg CHO/kg/min): 3.3 % Fat KCALS: 24 NCP: N Ratio: 107:1 TPN Comment: Maintain D19% + AA 5.4% @65ml/hr w/ IL 20% @9ml/hr- all 3:1. TPN at goal meets 100% est needs, provides 28kcal/adj kg and 1.3g/adj kg. - Monitor BG, Lytes, LFT's - GIR <5 - IL <30% -> Consider lowering TPN by 25% to goal of 55ml/hr. ADDITIONAL RECOMMENDATIONS: 1) Weekly weights, standing as able 2) Monitor BG, LFT's, and Lytes on TPN 3) Rec to lower/ DC added D5% w/ TPN-> now at 25ml/hr 4) Monitor diet advancement, need to taper down TPN Rec lowering TPN from 74ml/hr-> 55ml/hr
[2019-08-08] MEDS: Ascorbic Acid 500mg tab ORAL PRN ×3 (11:12→16:04)
[2019-08-08 12:00] VITALS: BP 138/78
--- NOTE | 2019-08-08 12:40 | NUR ---
NURSE NOTES: GT draining to bag as ordered. Lunch held, patient aware of NPO status.
[2019-08-08 16:00] VITALS: BP_SYST 115; BP_SYST 131; BP_DIAS 77; BP_DIAS 87
[2019-08-08] MEDS ORDERED: LORazepam 1mg tab SL PRN ×2 (16:30)
[2019-08-08] MEDS ORDERED: Dextrose 10% 1,000 ML IV PRN (16:30)
[2019-08-08] MEDS ORDERED: Simethicone 80mg tab ORAL PRN (16:30)
--- NOTE | 2019-08-08 16:30 | NUR ---
NURSE NOTES: Patient continues to be NPO. GT to drainage bag as ordered. Ileo to drainage bag, will continue to monitor output. KUB taken at bedside.
--- NOTE | 2019-08-08 16:38 | General Progress Note ---
Progress Note Progress Note c/o gas and abdominal cramping - unable to eat food this AM and only 10% last night Abdomen distended and mildly tympanitic, incisions clean Urine 1800 BCIR ileo 1300 gastrostomy has been plugged WBC up 11,700 chemistries ok - albumin up 2.7 Imp: Partial SBO precipitated by solid food Plan; npo, continue tpn, gastrostomy to drainage portable KUB XRay f/u labs may need CT scan Sourav Louie MD Aug 08, 2019 16:38
--- NOTE | 2019-08-08 17:15 | Diagnostic Imaging Report ---
Indication: Abdominal distention Technique: Supine view of the abdomen Comparison: none Findings: There is evidence of recent surgery, with midline skin bharat as well as bharat in the right groin region. There is evidence of continent ileostomy, with surgical anastomotic bharat and an access catheter in place. There are dilated gas-filled small bowel loops. No masses or unusual calcifications. There is a gastrostomy catheter in place Impression: Evidence of recent surgery Dilated gas-filled small bowel loops. Given the recent surgery, most likely on the basis of postoperative ileus but partial small bowel obstruction also possible findings discussed by phone with Dr. Louie at the time of interpretation
--- NOTE | 2019-08-08 18:58 | NUR ---
NURSE NOTES: True ileo: 450cc liquid brown output. Extra flushing done throughout shift. True gt: 220cc clear liquid with gastric contents. UO: 1200cc . Gas pains noted, patient ambulates throughout underwood. Patient feels relief when changing positions.
--- NOTE | 2019-08-08 19:36 | NUR ---
NURSE NOTES: Received Report from Tamara CASTRO. Rounding is done with outgoing nurse. Patient is in bed, a/o x4, and able to known her needs. Patient is feeling down due to possible postpone discharge. Ileo cath and G-tube are in place, patent, and drain to gravity. PICC line is intact and patent and IV Fluid is running. TPN is running. Dressing on abdomen is c/d/i. Denied any pain or discomfort at this time. Breathing is even and unlabored. Bed is on alarm, locked, lowest position. Call light within reach. Family is at bedside. Will continue to monitor.
--- NOTE | 2019-08-08 19:36 | NUR ---
HAND-OFF: Report given to Marco CASTRO. Patient is stable.
[2019-08-08 20:00] VITALS: BP 115/65
[2019-08-08] MEDS: Dyna-Hex 2% Top Sol 2oz TOPIC SCH (20:11)
[2019-08-08] MEDS: Fat Emulsion Iv 20% 216 ML in Tpn 1,560 ML IV SCH (20:14)
[2019-08-09] VITALS: BP 124/66
[2019-08-09 04:00] VITALS: BP 132/68
[2019-08-09] MEDS: NovoLOG Insulin Flexpen SUBQ SCH ×3 (05:35→17:13)
[2019-08-09 06:14] LABS: BASOPHILS % (AUTO) 0.9 % (0.0-2.0); EOSINOPHILS % (AUTO) 4.6 % (0.0-3.0); HEMATOCRIT 32.4 % (37.0-47.0); MEAN CORPUSCULAR VOLUME 91 FL (80-99); MONOCYTES % (AUTO) 9.4 % (1.0-10.0); NEUTROPHILS % (AUTO) 67.1 % (45.0-75.0); PLATELET COUNT 302 K/UL (150-450); RED BLOOD COUNT 3.56 M/UL (4.20-5.40); RED CELL DISTRIBUTION WIDTH 12.2 % (11.6-14.8); WHITE BLOOD COUNT 11.5 K/UL (4.8-10.8)
[2019-08-09 06:26] LABS: ANION GAP 8 mmol/L (5-15); BLOOD UREA NITROGEN 18 mg/dL (7-18); CALCIUM 8.8 MG/DL (8.5-10.1); CARBON DIOXIDE 31 MMOL/L (21-32); CHLORIDE 106 MMOL/L (98-107); CREATININE 0.8 MG/DL (0.55-1.30); POTASSIUM 4.3 MMOL/L (3.5-5.1); SODIUM 144 MMOL/L (136-145)
--- NOTE | 2019-08-09 07:20 | NUR ---
HAND-OFF: Report given to Rhoda CASTRO.Patient in stable condition.
[2019-08-09 08:00] VITALS: BP 124/64
--- NOTE | 2019-08-09 08:19 | NUR ---
NURSE NOTES: AWAKE/ALERT. NO C/O PAIN. IN NO APPARENT DISTRESS.
[2019-08-09] MEDS: D5 1/4NS w/KCl 20mEq 1,000 ML IV SCH (08:36)
[2019-08-09] MEDS: Losartan 25mg tab ORAL SCH (08:46)
[2019-08-09] MEDS: Citalopram Hydrobromide 10mg Tab ORAL SCH (08:46)
[2019-08-09] MEDS ORDERED: NS Irrig 1000ml ONE ×3 (09:29→10:04)
[2019-08-09] MEDS ORDERED: Tubing IV Secondary IV ONE (09:29)
--- NOTE | 2019-08-09 10:26 | General Progress Note ---
Progress Note Progress Note AVSS Abdominal cramps and gas pains have resolved. Abdomen remains distended, KUB yesterday - very dilated small bowel loops Incisions clean, stoma healing nicely Urine 1700 Gastrostomy 380 BCIR ileo 600cc enteric WBC still elevated but down to 11,500 chems ok Imp: partial SBO Plan; continue npo, TPN, gastrostomy and BCIR ileo catheters to drainage If not clearly resolving in [address] scan Sourav Louie MD Aug 09, 2019 10:26
[2019-08-09 12:00] VITALS: BP 120/68
--- NOTE | 2019-08-09 13:00 | NUR ---
NURSE NOTES: ASSISTED WITH BATH AND HAIR WASH. FELT FRESH AND BETTER AFTER.
--- NOTE | 2019-08-09 14:00 | NUR ---
NURSE NOTES: AMBULATED OUT IN THE SONI TOLERATED.
[2019-08-09 16:00] VITALS: BP 106/60
--- NOTE | 2019-08-09 18:53 | NUR ---
NURSE NOTES: AWAKE/ALERT. IN NO APPARENT DISTRESS.
--- NOTE | 2019-08-09 19:13 | NUR ---
HAND-OFF: Report given to TAMMY CASTRO.
--- NOTE | 2019-08-09 19:52 | NUR ---
NURSE NOTES: Received Report from RN MARLON , pt is A/O x4, breaths even regular and unlabored on RA. Pt denies any pain, pt is on NPO diet . PT has an Ileostomy on L lower quad and G tube on L upper quad on continuous drain and Q3 flush. Pt has a MARISOL picc line with i.v fluids running, patent and asymptomatic , abdominal dressing clean and intact. Family by the bed side . Bed in low locked position and call light with in reach
[2019-08-09 20:00] VITALS: BP 107/57
[2019-08-09] MEDS: Dyna-Hex 2% Top Sol 2oz TOPIC SCH (20:23)
[2019-08-09] MEDS: Fat Emulsion Iv 20% 216 ML in Tpn 1,560 ML IV SCH (20:30)
[2019-08-10] VITALS: BP 113/65
[2019-08-10] MEDS: NovoLOG Insulin Flexpen SUBQ SCH ×4 (00:56→18:00)
[2019-08-10] MEDS: D5 1/4NS w/KCl 20mEq 1,000 ML IV SCH ×4 (02:52→21:30)
[2019-08-10 04:00] VITALS: BP 99/54
[2019-08-10 05:39] LABS: BASOPHILS % (AUTO) 1.3 % (0.0-2.0); EOSINOPHILS % (AUTO) 5.3 % (0.0-3.0); HEMATOCRIT 30.5 % (37.0-47.0); HEMOGLOBIN 10.4 G/DL (12.0-16.0); LYMPHOCYTES % (AUTO) 20.9 % (20.0-45.0); MEAN CORPUSCULAR VOLUME 90 FL (80-99); MONOCYTES % (AUTO) 8.7 % (1.0-10.0); NEUTROPHILS % (AUTO) 63.8 % (45.0-75.0); PLATELET COUNT 265 K/UL (150-450); RED BLOOD COUNT 3.38 M/UL (4.20-5.40); RED CELL DISTRIBUTION WIDTH 12.6 % (11.6-14.8); WHITE BLOOD COUNT 9.9 K/UL (4.8-10.8)
[2019-08-10 05:49] LABS: ALANINE AMINOTRANSFERASE 39 U/L (12-78); ALBUMIN 2.5 G/DL (3.4-5.0); ALBUMIN/GLOBULIN RATIO 0.8 (1.0-2.7); ALKALINE PHOSPHATASE 169 U/L (46-116); ANION GAP 6 mmol/L (5-15); ASPARTATE AMINO TRANSFERASE 21 U/L (15-37); BILIRUBIN,TOTAL 0.3 MG/DL (0.2-1.0); BLOOD UREA NITROGEN 24 mg/dL (7-18); CALCIUM 9.2 MG/DL (8.5-10.1); CARBON DIOXIDE 34 MMOL/L (21-32); CHLORIDE 104 MMOL/L (98-107); CREATININE 0.8 MG/DL (0.55-1.30); PHOSPHORUS 4.7 MG/DL (2.5-4.9); POTASSIUM 3.9 MMOL/L (3.5-5.1); SODIUM 144 MMOL/L (136-145)
--- NOTE | 2019-08-10 06:59 | NUR ---
HAND-OFF: Report given to GLORIA Duong pt stable.
--- NOTE | 2019-08-10 07:55 | NUR ---
NURSE NOTES: AWAKE/ALERT. FEELING DEPRESSED AND FRUSTRATED. STATES DIDN'T SLEEP LAST NITE. NO C/O PAIN. NPO MAINTAINED. IV AND TPN INFUSING. GT AND ILEOSTOMY TO DRAINAGE BAG PATENT.
[2019-08-10 08:00] VITALS: BP 122/72
[2019-08-10] MEDS ORDERED: NS Irrig 1000ml ONE (08:44)
[2019-08-10] MEDS: Losartan 25mg tab ORAL SCH (08:52)
[2019-08-10] MEDS: Citalopram Hydrobromide 10mg Tab ORAL SCH (08:52)
--- NOTE | 2019-08-10 09:30 | NUR ---
NURSE NOTES: ambulated out in the ad braulio as tolerated
[2019-08-10] MEDS ORDERED: Omnipaque-300 100ml vial INJ PRN (10:00)
--- NOTE | 2019-08-10 10:08 | General Progress Note ---
Progress Note Progress Note AVNAHUN Says she feels fine and is depressed and upset about being here and having a partial SBO Abdomen still mildly distended Healing well Urine 1250 Gastrostomy up 780 BCIR ileo 665 WBC down 9900 BUN up 24 Cr 0.8 chems ok Imp: Early post-operative small bowel obstruction Plan: STAT CT scan abd+pelvis with po + IV contrast continue current regimen but increase IV fluids, continue TPN Sourav Louie MD Aug 10, 2019 10:08
[2019-08-10 12:00] VITALS: BP 107/71
--- NOTE | 2019-08-10 12:44 | Diagnostic Imaging Report ---
EXAM: CT Abdomen and Pelvis With Intravenous Contrast CLINICAL HISTORY: ABD DIST. Recent revision of a continent enterostomy. TECHNIQUE: Axial computed tomography images of the abdomen and pelvis with intravenous contrast. One or more of the following dose reduction techniques were used: automated exposure control, adjustment of the mA and/or kV according to patient size, use of iterative reconstruction technique. CT DI: 6.7 DLP: 309.3 COMPARISON: No relevant prior studies available. FINDINGS: Lung bases demonstrate no acute infiltrate. Liver is enlarged. There is no biliary dilation. Atrophic pancreas, particularly proximally. No evidence of acute pancreatitis. The spleen and adrenal glands are within normal limits. There are numerous bilateral renal cysts as well as hypodensities that are too small to characterize. No hydronephrosis. There is evidence of a proctocolectomy. Left paramedian ostomy with a traversing to extending into a reservoir/Kock pouch. There is contrast within the pouch including high-grade bowel obstruction. No discrete transition point to indicate partial obstruction. No drainable postoperative abscess or seroma or hematoma. No pneumoperitoneum. Expected operative changes of the abdominal wall. No fracture. IMPRESSION: Status post proctocolectomy. Left paramedian ostomy with a traversing tube extending into a reservoir/Kock pouch. Contrast within the pouch excludes high-grade obstruction. No transition point to suggest significant partial obstruction. No drainable abscess or other fluid collection. <MYCVCSECTION> Communications: 08/10/19 12:33 Call Doctor Regarding Above results, called Jacy AYALA on 08/09 12:33 (-07:00)
[2019-08-10 15:52] VITALS: BP 124/65
--- NOTE | 2019-08-10 16:20 | NUR ---
NURSE NOTES: AWAKE/ALERT. IN NO DISTRESS.
--- NOTE | 2019-08-10 16:21 | NUR ---
HAND-OFF: Report given to SALVATORE Torres RN.
--- NOTE | 2019-08-10 16:54 | NUR ---
NURSE NOTES: Report received from Rhoda CASTRO. Patient is awake and oriented, no acute distress noted, reporting no pain. IVF and TPN running per order. Ileo and g-tube to gravity drainage. Updated on plan of care.
--- NOTE | 2019-08-10 18:33 | NUR ---
NURSE NOTES: Total g-tube output for shift: +195mL Total ileo output: +695mL Total urine output: 1000mL
--- NOTE | 2019-08-10 19:25 | NUR ---
NURSE NOTES: Received Report from GLORIA Montesinos , pt is A/O x4, breaths even regular and unlabored on RA. Pt denies any pain, pt is on NPO diet . PT has an Ileostomy on L lower quad and G tube on L upper quad on continuous drain and Q3 flush. Pt has a MARISOL picc line with i.v fluids running, patent and asymptomatic , abdominal dressing clean and intact. Family by the bed side . Bed in low locked position and call light with in reach
--- NOTE | 2019-08-10 19:43 | NUR ---
HAND-OFF: Report given to Steve CASTRO.
[2019-08-10 20:00] VITALS: BP 107/60
[2019-08-10] MEDS: Dyna-Hex 2% Top Sol 2oz TOPIC SCH (20:28)
[2019-08-10] MEDS: Fat Emulsion Iv 20% 216 ML in Tpn 1,560 ML IV SCH (20:30)
[2019-08-11] VITALS: BP 113/64
[2019-08-11 04:00] VITALS: BP 106/61
[2019-08-11] MEDS: NovoLOG Insulin Flexpen SUBQ SCH ×5 (06:00→23:57)
[2019-08-11 07:20] LABS: BASOPHILS % (AUTO) 0.9 % (0.0-2.0); EOSINOPHILS % (AUTO) 6.6 % (0.0-3.0); HEMATOCRIT 31.1 % (37.0-47.0); HEMOGLOBIN 10.6 G/DL (12.0-16.0); LYMPHOCYTES % (AUTO) 21.7 % (20.0-45.0); MEAN CORPUSCULAR VOLUME 91 FL (80-99); NEUTROPHILS % (AUTO) 62.7 % (45.0-75.0); PLATELET COUNT 270 K/UL (150-450); RED BLOOD COUNT 3.43 M/UL (4.20-5.40); RED CELL DISTRIBUTION WIDTH 12.3 % (11.6-14.8); WHITE BLOOD COUNT 8.7 K/UL (4.8-10.8)
--- NOTE | 2019-08-11 07:30 | NUR ---
NURSE NOTES: Patient is in bed awake and able to verbalize needs. Stable. Denies pain or SOB. Patient c/o abdominal discomfort and states that she feels bloated. PICC running IVF and TPN as ordered. ileo and gt drianing to bag as ordered, will flush and monitor output. Patient is in bed in locked and lowest position with call light within reach. All needs met at this time. Will continue to monitor.
[2019-08-11 07:31] LABS: ALANINE AMINOTRANSFERASE 43 U/L (12-78); ALBUMIN 2.6 G/DL (3.4-5.0); ALBUMIN/GLOBULIN RATIO 0.7 (1.0-2.7); ALKALINE PHOSPHATASE 167 U/L (46-116); ANION GAP 7 mmol/L (5-15); ASPARTATE AMINO TRANSFERASE 20 U/L (15-37); BILIRUBIN,TOTAL 0.3 MG/DL (0.2-1.0); BLOOD UREA NITROGEN 18 mg/dL (7-18); CALCIUM 9.1 MG/DL (8.5-10.1); CARBON DIOXIDE 32 MMOL/L (21-32); CHLORIDE 103 MMOL/L (98-107); CREATININE 0.8 MG/DL (0.55-1.30); SODIUM 142 MMOL/L (136-145)
--- NOTE | 2019-08-11 07:41 | NUR ---
HAND-OFF: Report given to GLORIA gee.
[2019-08-11 08:00] VITALS: BP 131/57
[2019-08-11] MEDS: Citalopram Hydrobromide 10mg Tab ORAL SCH (09:08)
[2019-08-11] MEDS: Losartan 25mg tab ORAL SCH (09:08)
--- NOTE | 2019-08-11 09:23 | General Progress Note ---
Progress Note Progress Note AVSS Feels okay. Depressed re prolonged hospital stay Abdomen soft, slightly less distended and tympanitic, healing well Urine 2029 Gastrostomy 290 BCIR ileo 855cc (including po contrastP WBC 8700 BUN down [address] scan reviewed: contrast goes through into Lizarraga pouch, but entire small bowel is dilated with thickened wall and edema of wall of bowel Imp: Persistent prolonged ileus vs partial SBO and hypoalbuminemia, moderately severe Plan: Trial of gastrostomy to medium intermittent suction continue npo and TPN Sourav Louie MD Aug 11, 2019 09:23
--- NOTE | 2019-08-11 09:40 | NUR ---
NURSE NOTES: Patient connected to GT suction, clear output noted in tubing, will flush q3h as ordered. Patient appears unhappy about plan of care.
--- NOTE | 2019-08-11 10:29 | NUR ---
CASE MANAGEMENT: REVIEW 08/09/19 SI: UTI S/P LAPAROTOMY REVISION SHIELDS POUCH S/P SHIELDS POUCH ENDOSCOPY MALFUNCTION SHIELDS CONTINENT ILEOSTOMY WITH DIFFICULTY INTUBATING 98.3 73 18 120/68 98% ON RA WBC 11.5 H/H 11.0/32.4 BG 113 IS: IV D5@25 ML/HR TPN Q24HR COZAAR PO QD EMMA-HEX 2% TP QD NOVOLOG SQ QID IV TORADOL Q6/PRN SYNTHROID QAM CELEBREX PO QD VIT K SQ X1 WK IV ZOFRAN Q4HR/PRN \: 3E MED SURG UNIT PLAN: CONT NPO GASTROTOMY AND BCIR ILEO CATH TO DRAINAGE If not clearly resolving in [address] scan CASE MANAGEMENT: REVIEW 08/10/19 SI: UTI S/P LAPAROTOMY REVISION SHIELDS POUCH S/P SHIELDS POUCH ENDOSCOPY MALFUNCTION SHIELDS CONTINENT ILEOSTOMY WITH DIFFICULTY INTUBATING 98.6 85 22 122/72 99% ON RA H/H 10.4/30.5 BG 127 BUN 24 CO2- 34 IS: IV D5@75 ML/HR TPN Q24HR COZAAR PO QD EMMA-HEX 2% TP QD NOVOLOG SQ QID SYNTHROID QAM CELEBREX PO QD VIT C PO Q4HR/PRN IV ZOFRAN Q4HR/PRN \: 3E MED SURG UNIT PLAN: CONT NPO STAT CT scan abd+pelvis with po + IV contrast CONT TPN CASE MANAGEMENT: REVIEW 08/11/19 SI: UTI S/P LAPAROTOMY REVISION SHIELDS POUCH S/P SHIELDS POUCH ENDOSCOPY MALFUNCTION SHIELDS CONTINENT ILEOSTOMY WITH DIFFICULTY INTUBATING 98.1 80 16 106/61 99% ON RA H/H 10.6/31.1 IS: IV D5@75 ML/HR TPN Q24HR COZAAR PO QD EMMA-HEX 2% TP QD NOVOLOG SQ QID SYNTHROID QAM CELEBREX PO QD VIT C PO Q4HR/PRN IV ZOFRAN Q4HR/PRN \: 3E MED SURG UNIT PLAN: Trial of gastrostomy to medium intermittent suction continue npo and TPN
[2019-08-11] MEDS: D5 1/4NS w/KCl 20mEq 1,000 ML IV SCH ×2 (10:30→23:58)
[2019-08-11 12:00] VITALS: BP 128/69
--- NOTE | 2019-08-11 12:42 | NUR ---
NURSE NOTES: GT connected to suction as ordered. Patient is irritable and asks RN why she needs to be on suction, RN explained plan of care. Patient says, "I feel fine, but every time I say I'm fine, I'm not fine." Patient was asked to clarify and she stated, "I don't feel bloated and I have not felt discomfort since sunday." Patient reminded of complaint to RN earlier in the morning about feeling bloated and full. Patient denies feeling bloated or discomfort at this time however says that having her gt to suction makes her feel better.
--- NOTE | 2019-08-11 15:37 | NUR ---
NURSE NOTES: Patient is ambulating in hallway. No c/o pain or discomfort at this time. All safety measures provided. WIll continue to monitor.
[2019-08-11 16:00] VITALS: BP 135/78
--- NOTE | 2019-08-11 18:46 | NUR ---
NURSE NOTES: true ileo: 420cc brown liquid output. true gt output: 470cc clear liquid output with gastric content. Gt to suction as ordered, tolerated well. UO: 950cc urine output. Patient ambulated x2 throughout shift. Patient does not c/o pain or discomfort. No c/o nausea or fullness. Patient is emotional and has moments of irritability when discussing plan of care, reassurance provided. Patient is more calm after addressing questions and concerns with staff.
--- NOTE | 2019-08-11 19:30 | NUR ---
HAND-OFF: Report given to Radha CASTRO. Patient is stable.
--- NOTE | 2019-08-11 19:38 | NUR ---
NURSE NOTES: Patient is ambulating in the hallway, Gtube is placed to gravity due to ambulation, family is at bedside, PICC line in place, dressing is clean dry and intact, no acute distress noted. Call light is within reach, bed is lowered, locked and alarm is on, will continue to monitor for comfort and safety.
[2019-08-11 20:00] VITALS: BP 112/61
[2019-08-11] MEDS: Dyna-Hex 2% Top Sol 2oz TOPIC SCH (20:15)
[2019-08-11] MEDS: Fat Emulsion Iv 20% 216 ML in Tpn 1,560 ML IV SCH (20:16)
[2019-08-12] VITALS: BP 125/74
[2019-08-12 04:17] VITALS: BP 110/78
[2019-08-12] MEDS: NovoLOG Insulin Flexpen SUBQ SCH ×3 (05:48→18:00)
--- NOTE | 2019-08-12 06:01 | NUR ---
NURSE NOTES: True Ileo output is 320, true GTube output is 20, total urine output for the shift is 900. Patient ambulated 2 times in the hallway, no acute distress noted, patient is stable at this time, will endorse to am shift nurse. Addendum: 08/12/19 at 0739 by JD RON RN correction gtube output is 320 cc
--- NOTE | 2019-08-12 07:22 | NUR ---
HAND-OFF: Report given to Tamara CASTRO.
--- NOTE | 2019-08-12 07:30 | NUR ---
NURSE NOTES: Patient is in bed awake and able to verbalize needs. Stable. Denies pain or SOB. When asked how she is feeling this morning, patient stated, "I don't know." Patient denies abdominal pain or discomfort. GT to suction as ordered. Ileo draining to bag, will flush q3h. Sutures on ileo catheter are bothersome to patient, reassured patient that staff will be careful while flushing ileo. PICC patent and running TPN and IVF. Patient is in bed in locked and lowest position with call light within reach. All needs met at this time. Will continue to monitor.
[2019-08-12 07:56] VITALS: BP 116/58
[2019-08-12] MEDS: Citalopram Hydrobromide 10mg Tab ORAL SCH (08:53)
[2019-08-12] MEDS: Losartan 25mg tab ORAL SCH (08:53)
--- NOTE | 2019-08-12 08:58 | NUR ---
NURSE NOTES: RN flushed gt and ileo as ordered. Patient denies discomfort around ileo catheter sutures at this time. Patient has no complaints at this time and is comfortable in bed. WIll continue to monitor.
--- NOTE | 2019-08-12 09:35 | NUR ---
CASE MANAGEMENT: REVIEW 08/11/19 SI: S/P LAPAROTOMY REVISION SHIELDS POUCH S/P SHIELDS POUCH ENDOSCOPY MALFUNCTION SHIELDS CONTINENT ILEOSTOMY WITH DIFFICULTY INTUBATING 98.4 77 18 116/58 96% ON RA IS: IV D5@75 ML/HR TPN Q24HR COZAAR PO QD EMMA-HEX 2% TP QD NOVOLOG SQ QID SYNTHROID QAM CELEBREX PO QD VIT C PO Q4HR/PRN IV ZOFRAN Q4HR/PRN \: 3E MED SURG UNIT PLAN: X-RAY ABD X1V Addendum: 08/13/19 at 1512 by MERLY CRUZ LVN 08/12/19
--- NOTE | 2019-08-12 11:34 | Diagnostic Imaging Report ---
Indication: Abdominal pain Comparison: 08/08/2019 Single view of the abdomen obtained Findings: Distended loops of small bowel likely present but appears slightly improved although the small bowel is less aerated than on the prior occasion making the current study less diagnostic. Multiple surgical clips again noted within the abdomen. Skin bharat still present. Catheter for the continent ileostomy is projected over the pelvis. IMPRESSION: Less distention of small bowel demonstrated. However evaluation is limited due to relative paucity of bowel gas.
[2019-08-12 12:00] VITALS: BP 132/75
[2019-08-12] MEDS: D5 1/4NS w/KCl 20mEq 1,000 ML IV SCH (13:00)
--- NOTE | 2019-08-12 14:15 | NUR ---
RD ASSESSMENT & RECOMMENDATIONS SEE CARE ACTIVITY FOR COMPLETE ASSESSMENT DAILY ESTIMATED NEEDS: Needs based on Surgery, GI 62.7kg adj 25-30 kcals/kg 4518-7775 total kcals 1-2 g protein/kg 63-125 g total protein 25-30 mL/kg 8554-2208 total fluid mLs NUTRITION DIAGNOSIS: Altered GI fxn r/t h/o colitis and ileostomy as evidenced by pt adm w/ BCIR malfunction now s/p laparotomy with reconstruction BCIR, creation of new valve and stoma relocation to [facility], NPO status + remains on TPN. CURRENT DIET:NPO PARENTERAL NUTRITION RECOMMENDATIONS: D/AA Rate: 65 IL Rate: 9 Total Rate: 74 Volume: 1776 % Dextrose: 19% % AA: 5.4% Energy (kcals/kg): 1777 Protein (g/kg protein): 84 Nonprotein KCALS: 1440 GIR (mg CHO/kg/min): 3.3 % Fat KCALS: 24 NPC: N Ratio: 107:1 TPN Comment: Maintain D19% + AA 5.4% @65ml/hr w/ IL 20% @9ml/hr- all 3:1. TPN at goal meets 100% est needs, provides 28kcal/adj kg and 1.3g/adj kg. - Monitor BG, Lytes, LFT's - GIR <5 - IL <30% ADDITIONAL RECOMMENDATIONS: 1) Weekly weights, standing as able 2) Monitor BG, LFT's, and Lytes on TPN 3) Rec to lower/ DC added D5% w/ TPN-> now at 75ml/hr 4) Monitor diet advancement, need to taper down TPN .
--- NOTE | 2019-08-12 14:16 | General Progress Note ---
Progress Note Progress Note AVSS Feels well with no abdominal pain or cramping Abdomen soft, still mildly tympanitic. Healing well Urine 1850 Gastrostomy on suction 790cc BCIR ileo 740 KUB - mild decrease in small bowel distention Imp: Improving post-op partial small bowel obstruction Plan: continue current regimen, npo, TPN Sourav Louie MD Aug 12, 2019 14:16
[2019-08-12 16:00] VITALS: BP 119/52
--- NOTE | 2019-08-12 16:29 | NUR ---
*-* INSURANCE *-* UPDATED CLINICAL AND REVIEWS HAVE BEEN FAXED TO: [facility] REF# [id number] BRYNN: MELISSA PH: [phone] FAX: [phone]
--- NOTE | 2019-08-12 18:41 | NUR ---
NURSE NOTES: true ileo: 545cc brown liquid output. true gt: 420cc clear liquid output. GT to suction throughout shift except while ambulating/voiding. UO: 1025cc urine output. Patient ambulated x3 during shift. TPN and IVF running as ordered. No c/o pain or abdominal discomfort at this time. Patient appears more calm today and is in good spirits, laughing and making conversation with RN.
--- NOTE | 2019-08-12 19:30 | NUR ---
NURSE NOTES: Receive a report from GLORIA Mcdonald. Pt is ambulating with steady gait. Denies pain. On NPO. No bloating/cramping noted. Will continue to monitor.
--- NOTE | 2019-08-12 19:46 | NUR ---
HAND-OFF: Report given to ERIKAo RN. Patient is stable.
[2019-08-12 20:00] VITALS: BP 111/62
--- NOTE | 2019-08-12 20:00 | NUR ---
NURSE NOTES: After ambulation. G-tube reconnected to wall suction, moderate intermittent, drained with yellowish gastric juice. Ileostomy drained with green-brown color drainage with flushing. TPN and fluid are running via PICC on MARISOL. Call light within reach. Will continue to monitor.
[2019-08-12] MEDS: Dyna-Hex 2% Top Sol 2oz TOPIC SCH (20:43)
[2019-08-12] MEDS: Fat Emulsion Iv 20% 216 ML in Tpn 1,560 ML IV SCH (20:43)
[2019-08-13] VITALS: BP 108/56
[2019-08-13] MEDS: D5 1/4NS w/KCl 20mEq 1,000 ML IV SCH ×3 (03:40→20:08)
[2019-08-13 04:00] VITALS: BP 100/51
[2019-08-13 05:29] LABS: BASOPHILS % (AUTO) 1.7 % (0.0-2.0); EOSINOPHILS % (AUTO) 6.8 % (0.0-3.0); HEMATOCRIT 32.4 % (37.0-47.0); HEMOGLOBIN 10.9 G/DL (12.0-16.0); LYMPHOCYTES % (AUTO) 19.2 % (20.0-45.0); MEAN CORPUSCULAR VOLUME 91 FL (80-99); MONOCYTES % (AUTO) 6.6 % (1.0-10.0); NEUTROPHILS % (AUTO) 65.6 % (45.0-75.0); PLATELET COUNT 269 K/UL (150-450); RED BLOOD COUNT 3.58 M/UL (4.20-5.40); RED CELL DISTRIBUTION WIDTH 12.4 % (11.6-14.8); WHITE BLOOD COUNT 8.1 K/UL (4.8-10.8)
[2019-08-13 05:55] LABS: ALANINE AMINOTRANSFERASE 51 U/L (12-78); ALBUMIN 2.6 G/DL (3.4-5.0); ALBUMIN/GLOBULIN RATIO 0.7 (1.0-2.7); ALKALINE PHOSPHATASE 179 U/L (46-116); ANION GAP 7 mmol/L (5-15); ASPARTATE AMINO TRANSFERASE 20 U/L (15-37); BILIRUBIN,TOTAL 0.3 MG/DL (0.2-1.0); BLOOD UREA NITROGEN 18 mg/dL (7-18); CALCIUM 9.2 MG/DL (8.5-10.1); CARBON DIOXIDE 31 MMOL/L (21-32); CHLORIDE 105 MMOL/L (98-107); CREATININE 0.8 MG/DL (0.55-1.30); PHOSPHORUS 4.7 MG/DL (2.5-4.9); POTASSIUM 4.2 MMOL/L (3.5-5.1); SODIUM 142 MMOL/L (136-145)
[2019-08-13] MEDS: NovoLOG Insulin Flexpen SUBQ SCH ×4 (06:00→18:00)
--- NOTE | 2019-08-13 06:00 | NUR ---
NURSE NOTES: No acute distress noted. Denies pain. Will continue to monitor. 12 hr output Urine: 950ml Ileostomy: 245ml G-tube: 520ml
--- NOTE | 2019-08-13 07:45 | NUR ---
HAND-OFF: Report given to Yamel/Malina Low. Round is done.
[2019-08-13 08:00] VITALS: BP 139/74
--- NOTE | 2019-08-13 08:00 | NUR ---
NURSE NOTES: Handoff received from O RN. Patient is resting comfortably in bed, no signs of distress noted, no reports of pain. TPN and IV fluids are running as ordered through MARISOL PICC, PICC intact and patent, dressing clean and dry. Ileo is draining to gravity, G-tube is draining to wall suction per order. Plan of care for the shift was discussed, and patient expressed desire to ambulate.
[2019-08-13] MEDS ORDERED: Phytonadione 10 mg/mL 1ml amp SUBQ SCH (09:00)
[2019-08-13] MEDS: Losartan 25mg tab ORAL SCH (09:02)
[2019-08-13] MEDS: Citalopram Hydrobromide 10mg Tab ORAL SCH (09:03)
[2019-08-13] MEDS ORDERED: LORazepam 1mg tab SL PRN ×2 (09:45→12:30)
--- NOTE | 2019-08-13 10:08 | General Progress Note ---
Progress Note Progress Note AVSS Feels well and no cramping Abdomen soft, distention resolving. Whitt and sutures removed and steri- strips applied Urine 1975 Gastrostomy 1145 BCIR ileo 665 WBC 8100 BUN 18 Cr 0.8 Albumin 2.6 Imp: Slowly resolving partial SBO due to bowel wall edema Plan: Change gastrostomy to continuous gravity drainage and d/c suction continue npo and TPN and Lizarraga pouch indwelling catheter to continuous drainage Sourav Louie MD Aug 13, 2019 10:08
[2019-08-13 12:00] VITALS: BP 111/59
--- NOTE | 2019-08-13 14:09 | NUR ---
*-* INSURANCE *-* UPDATED CLINICAL AND REVIEWS HAVE BEEN FAXED TO: [facility] REF# [id number] BRYNN: MELISSA PH: [phone] FAX: [phone]
--- NOTE | 2019-08-13 15:12 | NUR ---
CASE MANAGEMENT: REVIEW 08/13/19 SI: S/P LAPAROTOMY REVISION SHIELDS POUCH S/P SHIELDS POUCH ENDOSCOPY MALFUNCTION SHIELDS CONTINENT ILEOSTOMY WITH DIFFICULTY INTUBATING 99.0 69 18 111/59 99% ON RA H/H 10.9/32.4 BG 124 ALKP 179 IS: IV D5@50ML/HR TPN Q24HR COZAAR PO QD EMMA-HEX 2% TP QD NOVOLOG SQ QID SYNTHROID QAM CELEBREX PO QD VIT C PO Q4HR/PRN VIT KSQ QWK IV ZOFRAN Q4HR/PRN \: 3E MED SURG UNIT PLAN: DECREASE IVF CHANGE GASTROTOMY TO CONTINUOUS GRAVITY DRAINAGE AND DC SUCTION CONT NPO AND TPN SHIELDS POUCH INDWELLING CATHETER TO CONTINUOUS DRAINAGE
[2019-08-13 16:00] VITALS: BP 118/64
--- NOTE | 2019-08-13 18:00 | NUR ---
NURSE NOTES: Total ileo output for shift: +370mL Total g-tube output: +840mL Total urine output: 650mL Patient ambulated in hallway several times during shift, did not report any pain during shift.
--- NOTE | 2019-08-13 19:30 | NUR ---
NURSE NOTES: Receive a report from Steffi/ Malina Montesinos. Round is done.
--- NOTE | 2019-08-13 19:43 | NUR ---
HAND-OFF: Report given to Wayne CASTRO.
--- NOTE | 2019-08-13 19:45 | NUR ---
NURSE NOTES: Pt is awake and alert. No acute distress noted. Denies any pain/ discomfort. No bloating or cramp noted. Ileostomy and g-tube are drained with natural gravity and flushing 3hrs. Surgical dressing site is clean and dry. On NPO. TPN and fluid are running via PICC on MARISOL. Call light within reach. Will continue to monitor.
[2019-08-13 20:00] VITALS: BP 112/55
[2019-08-13] MEDS: Fat Emulsion Iv 20% 216 ML in Tpn 1,560 ML IV SCH (20:09)
[2019-08-13] MEDS: Dyna-Hex 2% Top Sol 2oz TOPIC SCH (20:09)
[2019-08-14] VITALS (7 sets, daily range): BP systolic 102–112; BP diastolic 55–65
[2019-08-14] MEDS: NovoLOG Insulin Flexpen SUBQ SCH ×5 (06:00→20:40)
--- NOTE | 2019-08-14 06:00 | NUR ---
NURSE NOTES: No acute distress noted. Pt says muscle pain on right upper arm that got shot yesterday. Explain for expected pain after IM. Pt verbalizes understanding. Will continue to monitor. 12hr output Urine: 850ml Ileostomy: 240ml G-tube: 500ml
--- NOTE | 2019-08-14 07:30 | NUR ---
HAND-OFF: Report given to Yamel/Katarina Kaur. Round is done.
[2019-08-14] MEDS: Citalopram Hydrobromide 10mg Tab ORAL SCH (09:07)
[2019-08-14] MEDS: Losartan 25mg tab ORAL SCH (09:07)
--- NOTE | 2019-08-14 09:50 | NUR ---
CASE MANAGEMENT: REVIEW 08/14/19 SI: S/P LAPAROTOMY REVISION SHIELDS POUCH S/P SHIELDS POUCH ENDOSCOPY MALFUNCTION SHIELDS CONTINENT ILEOSTOMY WITH DIFFICULTY INTUBATING 98.3 72 16 112/63 88% ON RA IS: IV D5@50ML/HR TPN Q24HR COZAAR PO QD EMMA-HEX 2% TP QD SYNTHROID QAM CELEBREX PO QD VIT C PO Q4HR/PRN VIT K SQ QWK \: 3E MED SURG UNIT PLAN: DECREASE IVF CHANGE GASTROTOMY TO CONTINUOUS GRAVITY DRAINAGE AND DC SUCTION CONT NPO AND TPN SHIELDS POUCH INDWELLING CATHETER TO CONTINUOUS DRAINAGE MONITOR O2 LEVEL - DECREASE THIS AM
--- NOTE | 2019-08-14 09:57 | NUR ---
NURSE NOTES: Handoff received from O RN. Patient is awake and alert, resting comfortably in bed, reports 0/10 pain. Patient complains of right arm soreness, states "it must have been the vitamin K shot." Surgical dressing is clean, dry, and intact. MARISOL PICC is asymptomatic and running TPN and IVF per MD order. G-tube and ileo tube are draining to gravity. Patient updated regarding plan of care for shift. Bed is low and locked, side rails up x2, call light is within reach.
--- NOTE | 2019-08-14 11:25 | General Progress Note ---
Progress Note Progress Note AVSS Feels well no GI symptoms tolerated gastrostomy off suction to continuous drainage but still significant output Abdomen soft, non-distended or tympanitic, well healed Urine 1500 Gastrostomy 1340 BCIR ileo 610 Imp: Resolving partial SBO vs prolonged ileus Plan: Trial of gastrostomy 3:3 protocol continue npo, TPN f/u labs Sourav Louie MD Aug 14, 2019 11:25
[2019-08-14] MEDS ORDERED: NS Irrig 1000ml ONE ×2 (13:03→20:37)
--- NOTE | 2019-08-14 14:32 | NUR ---
*-* INSURANCE *-* UPDATED CLINICAL AND REVIEWS HAVE BEEN FAXED TO: [facility] REF# [id number] BRYNN: MELISSA PH: [phone] FAX: [phone]
--- NOTE | 2019-08-14 15:40 | NUR ---
NURSE NOTES: Called Teri (occupational therapist assistant) at extension [phone], left voicemail informing of order from Dr. Louie to see patient for evaluation.
[2019-08-14] MEDS: D5 1/4NS w/KCl 20mEq 1,000 ML IV SCH (16:30)
--- NOTE | 2019-08-14 19:15 | NUR ---
NURSE NOTES: total urine output: 950ml total g tube output: +375 Total ileo output: +370 Patient ambulated in hallway several times today, reported no pain throughout shift. Patient started on 3:3 protocol and tolerating well.
--- NOTE | 2019-08-14 19:48 | NUR ---
HAND-OFF: Report given to Wendi CASTRO.
--- NOTE | 2019-08-14 20:00 | NUR ---
NURSE NOTES: Patient AOx4. Family at bedside. Denies pain. No s/s distress noted. Gtube noted. Ileo noted. Bed in lowest position, call light within reach. Will continue to monitor.
[2019-08-14] MEDS: Dyna-Hex 2% Top Sol 2oz TOPIC SCH (20:04)
[2019-08-14] MEDS: Fat Emulsion Iv 20% 216 ML in Tpn 1,560 ML IV SCH (20:06)
[2019-08-14] MEDS ORDERED: Tubing IV Secondary IV ONE (20:37)
--- NOTE | 2019-08-14 20:58 | NUR ---
HAND-OFF: Report given to JYOTI HARRISON RN.
--- NOTE | 2019-08-14 21:00 | NUR ---
NURSE NOTES: Received report from GLORIA Adame. Pt is awake, lying semi-may's; comfortably resting. No signs of acute distress noted. Pt denies any pain at this time. AOx4; able to make needs known. Checked IV sites, lines, and rates; patent and running. No erythema, bleeding or infiltration noted. Bed at lowest position. Brakes on. Siderails up x2. Call light within reach. Will continue to monitor.
[2019-08-15] VITALS: BP 104/55
[2019-08-15 04:00] VITALS: BP 106/59
[2019-08-15] MEDS: NovoLOG Insulin Flexpen SUBQ SCH ×2 (06:00→18:00)
[2019-08-15 06:38] LABS: BASOPHILS % (AUTO) 2.1 % (0.0-2.0); EOSINOPHILS % (AUTO) 7.5 % (0.0-3.0); HEMATOCRIT 33.9 % (37.0-47.0); HEMOGLOBIN 11.5 G/DL (12.0-16.0); LYMPHOCYTES % (AUTO) 23.6 % (20.0-45.0); MEAN CORPUSCULAR VOLUME 90 FL (80-99); MONOCYTES % (AUTO) 7.4 % (1.0-10.0); NEUTROPHILS % (AUTO) 59.5 % (45.0-75.0); PLATELET COUNT 275 K/UL (150-450); RED BLOOD COUNT 3.76 M/UL (4.20-5.40); WHITE BLOOD COUNT 7.2 K/UL (4.8-10.8)
[2019-08-15 06:44] LABS: ALANINE AMINOTRANSFERASE 75 U/L (12-78); ALBUMIN 2.9 G/DL (3.4-5.0); ALBUMIN/GLOBULIN RATIO 0.8 (1.0-2.7); ALKALINE PHOSPHATASE 208 U/L (46-116); ANION GAP 4 mmol/L (5-15); ASPARTATE AMINO TRANSFERASE 32 U/L (15-37); BILIRUBIN,TOTAL 0.6 MG/DL (0.2-1.0); BLOOD UREA NITROGEN 21 mg/dL (7-18); CALCIUM 9.3 MG/DL (8.5-10.1); CARBON DIOXIDE 36 MMOL/L (21-32); CHLORIDE 101 MMOL/L (98-107); CREATININE 0.8 MG/DL (0.55-1.30); PHOSPHORUS 4.6 MG/DL (2.5-4.9); POTASSIUM 3.7 MMOL/L (3.5-5.1); SODIUM 141 MMOL/L (136-145)
--- NOTE | 2019-08-15 07:04 | NUR ---
NURSE NOTES: Report received from Marita CASTRO, rounds made. Patient sleeping in semi-fowlers position in bed. Respirations even/unlabored on RA, no distress. IVF (D5 1/4 +20 KCL at 50 ml/hr) and TPN at 74 ml/hr infusing to MARISOL PICC, dressing CDI. Left abdomen GT clamped/BCIR draining to gravity green output. NPO. Family member at bedside. Call light in reach, bed in lowest position, will continue to monitor.
--- NOTE | 2019-08-15 07:47 | NUR ---
HAND-OFF: Report given to GLORIA Madrigal. Pt is sleeping and in stable condition. Plan of care endorsed.
[2019-08-15 08:00] VITALS: BP 128/68
--- NOTE | 2019-08-15 08:01 | General Progress Note ---
Progress Note Progress Note AVSS feels well with gastrostomy 3:3 protocol Abdomen soft, non-distended, non-tender Urine 1450 Gastrostomy 670 BCIR ileo 740 WBC 7200 Hgb up 11.5 Albumin up 2.9 Imp: Improved Plan: clear liquid diet with gastrostomy 5:1 protocol as tolerated continue TPN Sourav Louie MD Aug 15, 2019 08:01
[2019-08-15] MEDS: Losartan 25mg tab ORAL SCH (09:09)
[2019-08-15] MEDS: Citalopram Hydrobromide 10mg Tab ORAL SCH (09:09)
--- NOTE | 2019-08-15 09:20 | NUR ---
RD ASSESSMENT & RECOMMENDATIONS SEE CARE ACTIVITY FOR COMPLETE ASSESSMENT DAILY ESTIMATED NEEDS: Needs based on Surgery, GI 62.7kg adj 25-30 kcals/kg 2781-0466 total kcals 1-2 g protein/kg 63-125 g total protein 25-30 mL/kg 0263-9902 total fluid mLs NUTRITION DIAGNOSIS: Altered GI fxn r/t h/o colitis and ileostomy as evidenced by pt adm w/ BCIR malfunction now s/p laparotomy with reconstruction BCIR, creation of new valve and stoma relocation to [facility], remains on TPN, diet now advanced to CLD. CURRENT DIET:NPO -> CLEAR LIQUID DIET (08/14) PO DIET RECOMMENDATIONS: advance diet per MD -> BCIR LOW RESIDUE PARENTERAL NUTRITION RECOMMENDATIONS: D/AA Rate: 65 IL Rate: 9 Total Rate: 74 Volume: 1776 % Dextrose: 19% % AA: 5.4% Energy (kcals/kg): 1777 Protein (g/kg protein): 84 Nonprotein KCALS: 1440 GIR (mg CHO/kg/min): 3.3 % Fat KCALS: 24 NCP: N Ratio: 107:1 TPN Comment: - D19% + AA 5.4% @65ml/hr w/ IL 20% @9ml/hr- all 3:1. TPN at goal meets 100% est needs, provides 28kcal/adj kg and 1.3g/adj kg. - Monitor BG, Lytes, LFT's on TPN - GIR <5 - IL <30% ADDITIONAL RECOMMENDATIONS: 1) Weekly weights, standing as able 2) Monitor diet advancement, need to taper down TPN 3) Monitor BGs, LFTs, and lytes closely w/ TPN To meet daily est kcal and protein needs on full liquid diet Ensure Enlive 3-4 times/day (0650-8731 kcal/ 60-80g pro per day ) + Ensure Clear 2 times/ day (480 kcal/ 16g pro per day) + Added items as prescribed by full liquid diet ------> Discussed w/ pt and handout provided. Coupons for Ensure also provided for use after discharge
--- NOTE | 2019-08-15 10:41 | NUR ---
CASE MANAGEMENT: REVIEW 08/15/19 SI: S/P LAPAROTOMY REVISION SHIELDS POUCH S/P SHIELDS POUCH ENDOSCOPY MALFUNCTION SHIELDS CONTINENT ILEOSTOMY WITH DIFFICULTY INTUBATING 97.8 62 20 128/68 100% ON RA H/H 11.5/33.9 CO2-36 [id number] ALBUMIN 2.9 IS: IV D5@50ML/HR TPN Q24HR COZAAR PO QD EMMA-HEX 2% TP QD SYNTHROID QAM CELEBREX PO QD VIT C PO Q4HR/PRN VIT K SQ QWK \: 3E MED SURG UNIT PLAN: clear liquid diet with gastrostomy 5:1 protocol as tolerated continue TPN
[2019-08-15 12:00] VITALS: BP 114/68
--- NOTE | 2019-08-15 12:00 | NUR ---
NURSE NOTES: GT unplugged and flushed with NS 20 ml at 1100, then at 1200, flushed with NS 20 ml and plugged for lunch. GT will remain plugged until 1700. Patient aware of new POC, verbalized understanding. Patient up ambulating in room (does not want to ambulate in halls due to social distancing). Will continue to monitor.
[2019-08-15 16:01] VITALS: BP 126/71
--- NOTE | 2019-08-15 19:27 | NUR ---
HAND-OFF: Report given to Marita CASTRO, rounds made. Endorsed new GT plug schedule 5:1. Patient last plugged at 1800 and will remain plugged until 2300, then to be flushed with NS 20 ml and connected to drainage bag until 2400, then to be flushed with NS 20 ml and plugged from 2400 to 0500. Outputs: Ileostomy: 870 ml Urine: 875 ml GT: 170 ml
--- NOTE | 2019-08-15 19:35 | NUR ---
NURSE NOTES: Received report from GLORIA Madrigal. Pt is sleeping, lying semi-may's; comfortably resting. No signs of acute distress noted. Pt denies any pain at this time. AOx4; able to make needs known. Checked IV site, line, and rate; patent and running. No erythema, bleeding or infiltration noted. Bed at lowest position. Siderails up x2. Brakes on. Call light within reach. Will continue to monitor.
[2019-08-15 20:00] VITALS: BP 103/63
[2019-08-15] MEDS: Fat Emulsion Iv 20% 216 ML in Tpn 1,560 ML IV SCH (20:23)
[2019-08-15] MEDS: Dyna-Hex 2% Top Sol 2oz TOPIC SCH (20:24)
--- NOTE | 2019-08-15 22:16 | NUR ---
NURSE NOTES: Received order from Dr. Louie to advance diet of the pt to full liquid diet starting tomorrow for breakfast. See order for details.
[2019-08-16] VITALS: BP 115/59
[2019-08-16 04:00] VITALS: BP 96/52
[2019-08-16] MEDS: NovoLOG Insulin Flexpen SUBQ SCH ×2 (06:00→18:00)
--- NOTE | 2019-08-16 07:23 | NUR ---
NURSE NOTES: Report received from Marita RN, rounds made. Patient AOx4, calm. Respirations/even unlabored on RA, no distress. Denies pain, NV, SOB. LLA GT clamped and BCIR draininge green output to gravity. Abdominal dressing with steri strips CDI. TPN infusing to MARISOL PICC at 74 ml/hr, will change PICC dressing today. Call light in reach, bed in lowest position, will continue to monitor.
--- NOTE | 2019-08-16 07:40 | NUR ---
HAND-OFF: Report given to GLORIA Madrigal. Pt is awake and in stable condition. Plan of care endorsed.
--- NOTE | 2019-08-16 07:41 | NUR ---
NURSE NOTES: Called dietary to inform them pt's mom did not get guest tray even though they already paid for it. Relayed to the on going RN regarding this.
[2019-08-16 08:00] VITALS: BP 116/63
[2019-08-16] MEDS ORDERED: NS Irrig 1000ml ONE (08:39)
[2019-08-16] MEDS: Citalopram Hydrobromide 10mg Tab ORAL SCH (09:16)
[2019-08-16] MEDS: Losartan 25mg tab ORAL SCH (09:16)
--- NOTE | 2019-08-16 09:49 | General Progress Note ---
Progress Note Progress Note AVSS Tolerating clear liquids diet with gastrostomy 5:1 protocol Abdomen soft ,flat, non-tender Urine 1205 Gastrostomy 160 BCIr ileo 1190 Imp: Improving Plan: Full liquid diet and plug gastrostomy continuously continue TPN another day, and maintain continuous drainage of Lizarraga pouch Sourav Louie MD Aug 16, 2019 09:49
[2019-08-16 12:00] VITALS: BP 113/70
[2019-08-16 16:00] VITALS: BP 139/75
--- NOTE | 2019-08-16 19:25 | NUR ---
HAND-OFF: Report given to Sarah CASTRO, rounds made. Outputs: Urine: 600 ml BCIR Ileostomy: 845 ml GT: Clamped Continuously
[2019-08-16 20:00] VITALS: BP 153/79
--- NOTE | 2019-08-16 20:00 | NUR ---
NURSE NOTES: RECEIVED PATIENT LYING IN BED, SEMI FOWLERS POSITION, AWAKE, ALERT/ORIENTED X4, VERBALLY RESPONSIVE, DENIES PAIN. PICC LINE INTACT/DOUBLE LUMEN INFUSING TPN AT 74 ML PER HOUR, CHARGE NURSE FLUSHED FOR PATENCY, PATIENT TOLERATED WELL. S/P REVISION OF SHIELDS CONTINENT ILEOSTOMY 07/29/19, FLUSH EVERY 3 HOURS WITH 20 ML NS, DRAINING VIA GRAVITY DRAINAGE BAG. G TUBE CLAMPED. STERI STRIPS ABDOMEN INTACT - ABDOMINAL DRESSING DRY AND INTACT, NO SIGNS AND SYMPTOMS OF BLEEDING NOTED. ABDOMEN SOFT/NON DISTENDED/NON TENDER. SIDE RAILS UP X3/BED IN LOWEST POSITION FOR SAFETY, ENCOURAGED PATIENT TO UTILIZE CALL LIGHT FOR ASSISTANCE, VERBALIZED UNDERSTANDING. MOTHER REMAIN AT BEDSIDE. CONTINUE WITH CURRENT PLAN OF CARE. NAD.
[2019-08-16] MEDS: Dyna-Hex 2% Top Sol 2oz TOPIC SCH (20:30)
[2019-08-16] MEDS: Fat Emulsion Iv 20% 216 ML in Tpn 1,560 ML IV SCH (20:32)
[2019-08-17] VITALS: BP 99/62
[2019-08-17 04:00] VITALS: BP 105/60
[2019-08-17] MEDS: NovoLOG Insulin Flexpen SUBQ SCH ×2 (06:00→17:47)
--- NOTE | 2019-08-17 06:39 | NUR ---
NURSE NOTES: RESTED WELL, NO SIGNIFICANT CHANGE OF CONDITION NOTED THROUGHOUT THE NIGHT. SAFETY MAINTAINED. NAD.
[2019-08-17 07:21] LABS: BASOPHILS % (AUTO) 1.7 % (0.0-2.0); EOSINOPHILS % (AUTO) 7.8 % (0.0-3.0); HEMATOCRIT 37.3 % (37.0-47.0); HEMOGLOBIN 12.4 G/DL (12.0-16.0); LYMPHOCYTES % (AUTO) 23.1 % (20.0-45.0); MEAN CORPUSCULAR VOLUME 90 FL (80-99); MONOCYTES % (AUTO) 7.4 % (1.0-10.0); NEUTROPHILS % (AUTO) 60.1 % (45.0-75.0); PLATELET COUNT 286 K/UL (150-450); RED BLOOD COUNT 4.13 M/UL (4.20-5.40); RED CELL DISTRIBUTION WIDTH 12.2 % (11.6-14.8); WHITE BLOOD COUNT 7.8 K/UL (4.8-10.8)
[2019-08-17 07:26] LABS: ALANINE AMINOTRANSFERASE 89 U/L (12-78); ALBUMIN 3.1 G/DL (3.4-5.0); ALBUMIN/GLOBULIN RATIO 0.7 (1.0-2.7); ALKALINE PHOSPHATASE 245 U/L (46-116); ANION GAP 5 mmol/L (5-15); ASPARTATE AMINO TRANSFERASE 26 U/L (15-37); BILIRUBIN,TOTAL 0.5 MG/DL (0.2-1.0); BLOOD UREA NITROGEN 22 mg/dL (7-18); CALCIUM 9.7 MG/DL (8.5-10.1); CARBON DIOXIDE 36 MMOL/L (21-32); CHLORIDE 100 MMOL/L (98-107); CREATININE 0.9 MG/DL (0.55-1.30); POTASSIUM 3.7 MMOL/L (3.5-5.1); SODIUM 141 MMOL/L (136-145)
--- NOTE | 2019-08-17 07:41 | NUR ---
NURSE NOTES: Report received from Sarah CASTRO, rounds made. Patient up ambulating in halls, pace fast, steady. Patient AOx4, calm, no distress on RA. Patient reports she noticed her BCIR not draining, denies cramping, abdominal pain, NV or gas. Abdomen soft, non-tender. Will flush and assess BCIR catheter. TPN infusing at 74 ml/hr to left PICC, dressing remains CDI. Will continue to monitor.
[2019-08-17 08:00] VITALS: BP 109/66
--- NOTE | 2019-08-17 08:35 | NUR ---
NURSE NOTES: BCIR assessed, catheter in place, dressing CDI. Irrigated with NS 20 ml, no return drainage noted, then attempted to aspirate from BCIR catheter, successful without difficulty 70 ml, brown output flow started right away to tubing and drainage bag. Will continue to monitor.
[2019-08-17] MEDS: Citalopram Hydrobromide 10mg Tab ORAL SCH (08:38)
[2019-08-17] MEDS: Losartan 25mg tab ORAL SCH (08:39)
--- NOTE | 2019-08-17 10:31 | General Progress Note ---
Progress Note Progress Note AVSS Doing well with full liquid diet + supplements and gastrostomy plugged continuously Abdomen soft Urine 1300 Gastrostomy 0 BCIR ileo 1140 Hgb 12.4 sl increase LFTs Albumin up 3.1 Imp: Improved Plan: Gastrostomy removed Will d/c TPN In AM remove BCIR ileo catheter and start RN supervised self- intubations Plan to maintain full liquid diet + supplements for 1 week from now including post-discharge, then transition to BCIR diet at Sourav Rivera MD Aug 17, 2019 10:31
[2019-08-17 12:00] VITALS: BP 107/59
--- NOTE | 2019-08-17 12:00 | NUR ---
NURSE NOTES: Patient remains NPO and in bed from 1015 (GT discontinued by Dr. Louie, with new dressing in place), until this time. GT dressing remains CDI. Encouraged CDB with abdominal splinting, verbalized understanding. Reviewed all new orders for weaning off TPN and discontinuing later tonight, as well as changing GT dressing after dinner, verbalized understanding. Will continue to monitor.
[2019-08-17 16:00] VITALS: BP 117/68
--- NOTE | 2019-08-17 17:00 | NUR ---
NURSE NOTES: TPN rate decreased to 30 ml/hr, patient aware. Will discontinue at 1900 as ordered.
--- NOTE | 2019-08-17 18:00 | NUR ---
NURSE NOTES: Patient did not drink her Ensure Clear drinks, saved in her room fridge. Encouraged patient to drink as tolerated, verbalized understanding.
--- NOTE | 2019-08-17 19:00 | NUR ---
NURSE NOTES: GT dressing changed after dinner, small amount of light cream colored drainage, surrounding skin intact, no redness/swelling. Applied 4x4's with paper tape. Addendum: 08/17/19 at 2012 by Kaitlin Barillas RN TPN discontinued at this time, PICC flushed and clamped, patient aware/verbalized understanding.
--- NOTE | 2019-08-17 19:29 | NUR ---
HAND-OFF: Report given to Lisbeth CASTRO, rounds made. Outputs: Urine: 725 ml BCIR: 415 ml Addendum: 08/17/19 at 2014 by Kaitlin Barillas RN Endorsed TPN discontinued at 1900 as well as accu checks.
--- NOTE | 2019-08-17 19:30 | NUR ---
NURSE NOTES: Received report & pt from GLORIA Madrigal. Pt lying in bed, a&ox4, in room air, family member at bedside. No s/s of acute distress & no c/o pain. Ileo cath intact & draining to gravity. Surgical dressing C/D/I. AM nurse already applied light drsg to GT site @ 1900. PICC site intact & S/L'd. Plan of care discussed.
[2019-08-17] MEDS: Dyna-Hex 2% Top Sol 2oz TOPIC SCH (19:43)
[2019-08-17 20:00] VITALS: BP 126/61
[2019-08-18] VITALS: BP 114/67
[2019-08-18 04:59] VITALS: BP 120/75
--- NOTE | 2019-08-18 05:50 | NUR ---
NURSE NOTES: Pt complained of gas pain. Requesting for Tylenol. Offered Simethicone but pt wants Tylenol instead.
--- NOTE | 2019-08-18 05:57 | NUR ---
NURSE NOTES: Tylenol given. Per pt, she repositioned (head of bed more elevated) & gas pain was relieved for a little. Will continue to monitor.
--- NOTE | 2019-08-18 07:30 | NUR ---
HAND-OFF: Report given to GLORIA Trinh. Rounds done. Pt up in chair, still feels bubbly/gassy. Offered Simethicone again but pt states, "not right now" Pt made aware that medication is available any time.
[2019-08-18 08:00] VITALS: BP 123/82
--- NOTE | 2019-08-18 08:00 | NUR ---
NURSE NOTES: Received report from Lisbeth CASTRO, pt a/a/o x4 seating in bed with no signs of distress or other issues at this this time. PICC line in place, heplock. per report GT was removed yesterday. Ileostomy draining to gravity, total shift engineer out [id number], total urine: 400. pt is able to ambulate around the unit with steady gait. Mother at bedside, call light within reach, bed in lowest position, side rales up x2. I will f/u as needed.
[2019-08-18] MEDS: Citalopram Hydrobromide 10mg Tab ORAL SCH (08:54)
[2019-08-18] MEDS: Losartan 25mg tab ORAL SCH (08:54)
--- NOTE | 2019-08-18 09:29 | General Progress Note ---
Progress Note Progress Note Continues to do well with full liquids + supplements Abdomen soft. Gastrostomy site clean BCIR ileo catheter removed - reinserts readily Imp: improved Plan: RN supervised BCIR self-intubations q3h am to hs and prn d/c PICC Sourav Louie MD Aug 18, 2019 09:29
--- NOTE | 2019-08-18 10:00 | NUR ---
NURSE NOTES: Received order to remove PICC line. prior VS: 98.0, 152/82. 91, 97% RA, RN explained procedure to the patient and what to look for after procedure such as headache, chest pain, hot flashes to notify immediately. pt was able to verbalized understanding. post VS: 144/82, 88, 95% RA. pt was able to tolerate procedure with no signs of distress or other issues at this time. I will f/u as needed. - PICC line intact 40cm long as stated in CXR
--- NOTE | 2019-08-18 11:58 | NUR ---
*-* INSURANCE *-* UPDATED CLINICAL AND REVIEWS HAVE BEEN FAXED TO: [facility] REF# [id number] BRYNN: MELISSA PH: [phone] FAX: [phone]
[2019-08-18 12:00] VITALS: BP 111/78
--- NOTE | 2019-08-18 13:55 | NUR ---
CASE MANAGEMENT: REVIEW 08/16/19 SI: S/P LAPAROTOMY REVISION SHIELDS POUCH S/P SHIELDS POUCH ENDOSCOPY MALFUNCTION SHIELDS CONTINENT ILEOSTOMY WITH DIFFICULTY INTUBATING 97.2 78 21 116/63 97% ON RA IS: COZAAR PO QD EMMA-HEX 2% TP QD SYNTHROID QAM CELEBREX PO QD VIT C PO Q4HR/PRN \: 3E MED SURG UNIT PLAN: ~Full liquid diet ~Plug gastrostomy continuously ~Continue TPN another day ~Maintain continuous drainage of Shields pouch CASE MANAGEMENT: REVIEW 08/17/19 SI: S/P LAPAROTOMY REVISION SHIELDS POUCH S/P SHIELDS POUCH ENDOSCOPY MALFUNCTION SHIELDS CONTINENT ILEOSTOMY WITH DIFFICULTY INTUBATING 97.7 89 18 109/66 97% ON RA CO2-36 BUN 22 ALT 89 ALKP 245 IS: COZAAR PO QD EMMA-HEX 2% TP QD SYNTHROID QAM CELEBREX PO QD VIT C PO Q4HR/PRN \: 3E MED SURG UNIT PLAN: ~Full liquid diet ~Plug gastrostomy continuously ~Continue TPN another day ~Maintain continuous drainage of Shields pouch CASE MANAGEMENT: REVIEW 08/18/19 SI: S/P LAPAROTOMY REVISION SHIELDS POUCH S/P SHIELDS POUCH ENDOSCOPY MALFUNCTION SHIELDS CONTINENT ILEOSTOMY WITH DIFFICULTY INTUBATING 97.7 108 20 123/82 99% ON RA IS: COZAAR PO QD EMMA-HEX 2% TP QD SYNTHROID QAM CELEBREX PO QD VIT C PO Q4HR/PRN \: 3E MED SURG UNIT PLAN: ~RN supervised BCIR self-intubations q3h am to hs and prn ~D/C PICC
[2019-08-18 16:00] VITALS: BP 105/65
--- NOTE | 2019-08-18 19:47 | NUR ---
NURSE NOTES: Received Report from GLORIA Trinh , pt is A/O x4, breaths even regular and unlabored on RA. Pt denies any pain, pt is on full liquid diet. PT has an Ileostomy on L lower quad.pt continues to intubate with assist. Family by the bed side, pt discharge instructions given by day shift nurse and typewriter mechanic during shift exchange and pt verbalizes understanding of instructions . Bed in low locked position and call light with in reach
--- NOTE | 2019-08-18 19:51 | NUR ---
HAND-OFF: Report given to Steve CASTRO. pt a/a/o x4 in stable condition. - PICC line removed - pt able to do self intubation with no issues during my shift. - Discharge instructions and home supplies given to patient. patient also is aware that needs to call Dr. Louie on SundayAugust 24 at 11:00 ([place] time, also given number to call Dr. Louie office. pt verbalized understanding. - incoming nurse is also aware that d/c instructions were given. - pt able to ambulate around the unit with steady gait x2. I&O's Ileostomy: [id number] urine: 675ml intake: 946ml - Clear liquid diet
[2019-08-18 20:00] VITALS: BP 106/59
[2019-08-18] MEDS: Dyna-Hex 2% Top Sol 2oz TOPIC SCH (20:00)
--- NOTE | 2019-08-19 03:25 | NUR ---
NURSE NOTES: Pt, remains stable at the time,pt denies any pain or discomfort, pt took all belongings, d/c paper work already signed. Escorted pt off the unit.Pt left with family and was picked up by [employer] by the ER entrance. pt got in the back sit and they she left.
--- NOTE | 2019-08-19 07:48 | General Progress Note ---
Progress Note Progress Note AVSS did well self-intubating her Lizarraga pouch with 30Fr Allison catheter Discharged with full instructions/limitations/supplies provided/discussed F/U office 08/24 Rx - none Sourav Louie MD Aug 19, 2019 07:48
--- NOTE | 2019-08-19 11:53 | NUR ---
*-* INSURANCE *-* UPDATED CLINICAL AND REVIEWS HAVE BEEN FAXED NO DISCHARGE SUMMARY IN THE SYSTEM: MERGED WITH [facility] REF# [id number] JOEL: MELISSA PH: [phone] FAX: [phone]
--- NOTE | 2019-08-20 15:05 | NUR ---
*-* INSURANCE *-* NO DISCHARGE SUMMARY IN THE SYSTEM: [facility] [employer] REF# [id number] BRYNNM: MELISSA PH: [phone] FAX: [phone]
--- NOTE | 2019-08-20 17:33 | Discharge Summary ---
Discharge Summary Hospital Course Date of Admission Jul 28, 2019 at 08:50 Date of Discharge Aug 19, 2019 at 03:25 Admitting Diagnosis Malfunctioning Lizarraga continent ileostomy Reason for Hospitalization: Elective surgery HPI Spenser Lepe is a 49 year old female who was admitted on Jul 28, 2019 at 08: 50 for Malfunctioning Lizarraga Continent Ileostomy 49-year-old female in overall good health presented with a malfunctioning Lizarraga continent ileostomy with difficulty intubating and incontinence of stool and gas. Patient was presented for elective surgery. Consultations Dr Aldridge S- landscape gardener/IM Procedures s/p 07/28/[address] Louie Lizarraga continent ileostomy pouch endoscopy s/p 07/[address] Louie Laparotomy with complex reconstruction of Lizarraga continent ileostomy with creation of new valve and stoma with relocation of stoma to the left lower quadrant and catheter gastrostomy. Hospital Course patient admitted and at the same day undergone endoscopy of the Lizarraga pouch , which confirmed a partially slipped nipple valve the pouch was well formed and otherwise was normal without any inflammation or ulceration full discussion was hold with the patient regarding the nature of her condition and the nature of the surgery, indications, options, and risks patient consented to surgery patient undergone dual lumen PICC line insertion continued drainage of Lizarraga continent ileostomy pouch was maintained. patient started on the IV fluids bowel preparation was done prior to surgery patient started on empiric intravenous antibiotic and preoperative subcutaneous heparin patient subsequently undergone on 07/28 laparotomy with complex reconstruction of Lizarraga continent ileostomy with creation of new valve and stoma with relocation of stoma to the left lower quadrant and catheter gastrostomy pain management was addressed with SMOKING PIPE MOUNTER Dilaudid initially with basal infusion and demand dosing Toradol was added for breakthrough pain patient started on TPN due to extensive intestinal surgery and anticipated prolonged need for n.p.o. 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 with TPN intake and output and labs were closely monitored continued drainage of Lizarraga pouch was maintained electrolytes/potassium and phosphorus were replaced patient was noted to have high volume of ileostomy output stool was checked for C. difficile and was negative SMOKING PIPE MOUNTER was discontinued 08/01 ambulation was encouraged, and patient was able to ambulate without difficulties incentive spirometry provided and encouraged every hour while in the bed ileus was slowly resolving Olivier catheter was discontinued on 08/02 patient continued to be n.p.o. , on TPN and IV fluids patient started on Diflucan due to mild thrush. ileus was slwoly resolving. on 08/03 patient started on clear liquid diet as tolerated gastrostomy tube and ileostomy catheter were maintained to continuous drainage on 08/04 patient started on gastrostomy 3:3 protocol clear liquid diet and TPN continued with continuous drainage of Lizarraga pouch on 08/05 patient started on BCIR diet and gastrostomy 5:1 protocol TPN was still continued until adequate oral intake patient was followed-up with labs and intake and output on 08/07 patient complained of gas and abdominal cramping ; abdomen was distended , and patient had leukocytosis patient subsequently was made n.p.o. patient undergone KUB , which revealed dilated gas-filled small bowel loops , given recent surgery most likely on the basis of postoperative ileus ,but partial small bowel obstruction was also possible patient was kept n.p.o. TPN was continued gastrostomy was maintained to drainage patient subsequently undergone CT scan of abdomen and pelvis which revealed no transition point to suggest significant partial obstruction contrast within the pouch excluded high-grade obstruction, but entire small bowels dilated with thickened wall and edema of the wall of bowel no drainable abscess or other fluid collection leukocytosis resolved patient started on trial of gastrostomy tube to medium intermittent suction patient continued to be n.p.o. TPN continued patient slowly showed mild decrease in small bowel distention gastrostomy was changed to continuous gravity drainage , and suction was discontinued partial small bowel obstruction due to bowel wall edema was slowly resolving on 08/13 patient started on trial of gastrostomy 3:3 protocol n.p.o. and TPN continued patient was improving on 08/14 started on clear liquid diet with gastrostomy 5:1 protocol as tolerated TPN was still continued on 08/15 patient started on full liquid diet gastrostomy tube was plugged continuously TPN continued for additional day landscape gardener followed blood pressure was managed with ARB and CCB , remained stable no clinical evidence of CAD on 08/16 gastrostomy was removed , TPN was discontinued patient was on full liquid diet patient was recommended to maintain full liquid diet and supplements for 1 week , including upon discharge and then transition to BCIR diet at home on 08/17 BCIR catheter was removed and reinserted readily patient started on RN supervised BCIR self intubation every 3 hours a.m. to hs and as needed PICC line was discontinued patient did well with self intubation for Lizarraga pouch with 30 [place] Allison catheter patient was discharged with full instruction/limitations/supplies provided/ discussed patient to follow-up in the office on 08/25/19 FINAL DIAGNOSES 1. Malfunctioning Lizarraga continent ileostomy with desussception of the nipple valve with incontinence and difficulty intubating to evacuate stool. 2. History of ulcerative colitis. 3. Intermittent allergic asthma symptoms. 4. Status post multiple abdominal operations. 4.1. Total colectomy and ileoanal J-pouch with temporary ileostomy, June 1989. 4.2. Closure of temporary ileostomy, September 1990. 4.3. Creation of another diverting ileostomy, April 1991. 4.4. Resection of failed ileoanal J-pouch due to incontinence after a fistula repair with creation of conventional Rosario ileostomy in 1992. 4.5. Conversion of malfunctioning conventional ileostomy with marked skin allergies to appliances to a Lizarraga continent intestinal reservoir in 2001 5. s/p Laparotomy with complex reconstruction of Lizarraga continent ileostomy with creation of new valve and stoma with relocation of stoma to the left lower quadrant and catheter gastrostomy 07/29/2019 6. Ileus 7. Anemia iof iron deficiency. 8. Partial SBO 9. HTN 10.Hypothyroidism 11. RBBB Discharge Medications Continued Medications: Citalopram Hydrobromide* (Celexa*) 20 Mg Tablet 20 MG ORAL DAILY for antidepressant, TAB (This prescription has been renewed) Levothyroxine Sodium* (Synthroid*) 25 Mcg Tablet 50 MCG ORAL DAILY for hypothyroidism, TAB (This prescription has been renewed) Take in the morning on an empty stomach, at least 30 minutes before food. Montelukast Sodium* (Singulair*) 10 Mg Tablet 10 MG ORAL PRN for asthma, TAB (This prescription has been renewed) Discharge Condition Upon Discharge: stable Discharge Vital Signs Last Vital Signs Date Time Temp Pulse Resp B/P (MAP) Pulse Ox O2 Delivery O2 Flow Rate FiO2 08/18/19 21:00 Room Air 08/18/19 20:00 98.5 90 18 106/59 (75) 97 Discharge Disposition Patient was discharged home Discharge Instructions Discharge Instructions Special Instructions I have been assigned to complete a D/C Summary on this account. I was not involved in the patient management Analilia Castañeda NP Aug 20, 2019 17:33
--- NOTE | 2019-08-21 13:52 | NUR ---
*-* INSURANCE *-* DISCHARGE SUMMARY HAS BEEN FAXED [facility] [employer] REF# [id number] NC: MELISSA PH: [phone] FAX: [phone]
== END 2019-08-19 03:25 | disposition home or self-care (01) | DRG 330 ==
LOC: 3E 08:50
PROC: 0DJD8ZZ Inspection of Lower Intestinal Tract, Via Natural or Artificial Opening Endoscopic (ICD-10-PCS; principal; 2019-07-28 13:03)
PROC: B518ZZA Fluoroscopy of Superior Vena Cava, Guidance (ICD-10-PCS; principal; 2019-07-28 13:03)
PROC: 02HV33Z Insertion of Infusion Device into Superior Vena Cava, Percutaneous Approach (ICD-10-PCS; principal; 2019-07-28 13:03)
PROC: 0D9630Z Drainage of Stomach with Drainage Device, Percutaneous Approach (ICD-10-PCS; 2019-07-29)
PROC: 0DBB0ZZ Excision of Ileum, Open Approach (ICD-10-PCS; 2019-07-29)
PROC: 0DSB0ZZ Reposition Ileum, Open Approach (ICD-10-PCS; 2019-07-29)
PROC: 0D1B0Z4 Bypass Ileum to Cutaneous, Open Approach (ICD-10-PCS; 2019-07-29)
DX: K94.13 Enterostomy malfunction (principal); K56.7 Ileus, unspecified; K56.690 Other partial intestinal obstruction; E03.9 Hypothyroidism, unspecified; R15.9 Full incontinence of feces; I10 Essential (primary) hypertension; I45.10 Unspecified right bundle-branch block; J45.909 Unspecified asthma, uncomplicated; D50.9 Iron deficiency anemia, unspecified
CPT/HCPCS: 36415; 36569; 71045; 74018; 74177; 76937; 80048; 80053; 81001; 81003; 82607; 82728; 82746; 82962; 83540; 83550; 83735; 84100; 85025; 85610; 85730; 86850; 86870; 86900; 86901; 87086; 87324; 94003; 94150; J1815; J2405; J2710